=== PATIENT | male | born 1940 | race Caucasian/White ===

== ENCOUNTER 2016-08-16 10:53 | Day surgery (SDC) | payer OTHER ==
[2016-08-16] MEDS ORDERED: DIAZEPAM 5 MG TAB PO ONE (11:00)
[2016-08-16] MEDS ORDERED: ceFAZolin 2 GM/DEXTROSE 100 ML IV ONE (11:00)
[2016-08-16] MEDS ORDERED: NS 1,000 ML IV ONE (11:00)
[2016-08-16] MEDS ORDERED: BACITRACIN IRRIGATION/NS 50,000 UNITS/1,000 ML BTL IRR ONE (11:00)
[2016-08-16] MEDS ORDERED: diphenhydrAMINE 25 MG CAP PO ONE (11:00)
--- NOTE | 2016-08-16 11:13 | CPEKG ---
Heart Rate: 88 RR Interval: 682 P-R Interval: 96 QRSD Interval: 156 QT Interval: 448 QTC Interval: 542 P [place]: 145 QRS [place]: 130 T Wave [place]: 50 EKG Severity - ABNORMAL ECG - EKG Impression: VENTRICULAR-PACED COMPLEXES Electronically Signed By: Jacky Salamanca 17-Aug-2016 18:14:47
[2016-08-16] MEDS ORDERED: LIDOCAINE 1% 30 ML SDV ONE (12:33)
[2016-08-16] MEDS ORDERED: MIDAZOLAM 2 MG/2 ML VIAL ONE ×2 (12:33→13:25)
[2016-08-16] MEDS ORDERED: fentaNYL 100 MCG/2 ML INJ ONE (12:34)
--- NOTE | 2016-08-16 14:03 | EPPROC ---
Electrophysiology Procedure Note: PROCEDURE PERFORMED: 1. Explantation of an A-V Implantable Cardioverter Defibrillator 2. Implantation of an A-V Implantable Cardioverted Defibrillator INDICATION: ICD Generator at [place] Cardiomyopathy PROCEDURE NOTE: Patient presented to the cardiac catheterization laboratory in a fasting, postabsorptive state. CCL RN administered sedation. The left infraclavicular area was prepped and draped in the usual sterile fashion. Lidocaine plus bupivacaine was used for local anesthesia. Using a combination of blunt and sharp dissection and electrocautery, the dissection was carried down to the prepectoral fascia and the existing ICD pocket was opened. The ICD generator was disconnected from the leads and the lead thresholds and impedance were checked. The ICD pocket was copiously irrigated with antibiotic solution. The pocket was again inspected for any bleeding. The leads were attached to the ICD securely. The ICD was inserted into the pocket and secured in place with a nonabsorbable suture. Defibrillation testing was not performed. The ICD pocket was closed in 3 layers with absorbable monocryl sutures and jennifer. Appropriate dressing was applied. The patient left the cardiac catheterization laboratory in stable condition. Serial Numbers: 1. Implanted Device: Biotronik Itrevia 7HFT SN [id number] 2. Atrial Lead: Medtronic 4076 SN [id number] 3. Ventricular Lead: Biotronik Linox 65 SN [id number] 4. Coronary sinus Lead: Biotronik Corox 75 SN [id number] Stimulation Thresholds & Impedance Measurements: 1. Atrial Lead P 1.7 mV 0.8 V 0.4 ms 376 ohm 2. Ventricular Lead R 10.8 mV 0.7 V 0.s ms 580 ohm 3. Coronary sinus Lead R 24.1mV 0.9 V 1 ms 635 ohm Defibrillation testing: Not done Pacing Parameters: 1. Pacing mode: DDD CLS 2. Lower rate: 60 ppm 3. Upper tracking teon052 ppm 4. Upper sensor rate: 130 ppm Tachycardia therapy parameters: VF zone : Detection 188 bpm, ATP x 1 First therapy 36 Joule Subsequent therapies 40 Joule VT zone : Detection 167 bpm ATP x 3 Second therapy 36 Joule Subsequent therapies 40 Joule Patient Problems: Problems Problem Status Onset Systolic CHF, acute on chronic Acute Chest pain Acute CHRONIC DISEASE MANAGEMENTTransitional Care Acute Hypoxemia Acute Pre-syncope Acute Cardiomyopathy Acute Alcoholic intoxication Acute Troponin level elevated Acute Elevated INR Acute
== END 2016-08-16 17:11 | disposition home or self-care (01) ==
LOC: FCATH 10:53
PROVIDERS: ATTEND Internal Medicine Cardiovascular Disease
PROC: 0JPT0PZ Removal of Cardiac Rhythm Related Device from Trunk Subcutaneous Tissue and Fascia, Open Approach (ICD-10-PCS; principal; 2016-08-16)
PROC: 0JH608Z Insertion of Defibrillator Generator into Chest Subcutaneous Tissue and Fascia, Open Approach (ICD-10-PCS; principal; 2016-08-16)
DX: Z45.02 Encounter for adjustment and management of automatic implantable cardiac defibrillator (principal); I25.5 Ischemic cardiomyopathy; I48.91 Unspecified atrial fibrillation; N40.0 Benign prostatic hyperplasia without lower urinary tract symptoms; I25.10 Atherosclerotic heart disease of native coronary artery without angina pectoris; I50.30 Unspecified diastolic (congestive) heart failure; J44.9 Chronic obstructive pulmonary disease, unspecified; K21.9 Gastro-esophageal reflux disease without esophagitis; E78.5 Hyperlipidemia, unspecified; I10 Essential (primary) hypertension; G47.30 Sleep apnea, unspecified; Z87.891 Personal history of nicotine dependence; Z86.73 Personal history of transient ischemic attack (TIA), and cerebral infarction without residual deficits; Z95.1 Presence of aortocoronary bypass graft; Z79.01 Long term (current) use of anticoagulants
CPT/HCPCS: C1882; J0690; J2250; J3010

== ENCOUNTER 2016-08-17 08:07 | Observation (INO) | payer OTHER ==
--- NOTE | 2016-08-17 08:21 | CPEKG ---
Heart Rate: 124 RR Interval: 484 QRSD Interval: 162 QT Interval: 408 QTC Interval: 586 P [place]: 0 QRS [place]: 117 T Wave [place]: -34 EKG Severity - ABNORMAL ECG - EKG Impression: Paced, with LBBB pattern EKG Impression: Rhythm is variable suggesting that the underlying rhythm is possibly A Fib. EKG Impression: NONSPECIFIC INTRAVENTRICULAR CONDUCTION DELAY EKG Impression: CONSIDER LEFT VENTRICULAR HYPERTROPHY Electronically Signed By: Unruly Laughlin 17-Aug-2016 15:14:23
[2016-08-17 08:36] LABS: % IMMATURE GRANULYOCYTES 0.4 % (0.0-1.1); ABSOLUTE IMMATURE GRANULOCYTES 0.03 10^3/uL (0.00-0.10); ADD DIFF? NO; ADD MORPH? NO; ADD SCAN? NO; ATYPICAL LYMPHOCYTE FLAG 0 (0-99); FRAGMENT RBC FLAG 0 (0-99); HEMATOCRIT 39.3 % (40.0-51.0); HEMOGLOBIN 13.6 g/dL (13.7-17.5); LEFT SHIFT FLG 0 (0-99); LIPEMIA HEMOLYSIS FLAG 90 (0-99); MEAN CELL HEMOGLOBIN 32.8 pg (27.9-34.1); MEAN CELL HEMOGLOBIN CONCENTR. 34.6 g/dL (32.4-36.7); MEAN CELL VOLUME 94.7 fL (81.5-99.8); MEAN PLATELET VOLUME 9.2 fL (8.7-11.7); PLATELET CLUMPS FLAG 0 (0-99); PLATELET COUNT 221 10^3/uL (150-400); RED BLOOD CELL COUNT 4.15 10^6/uL (4.40-6.38); RED CELL DISTRIBUTION WIDTH 13.2 % (11.5-15.2)
--- NOTE | 2016-08-17 08:43 | UCPHY ---
H & P Patient Type: Established Time Seen by Provider: 08/17/16 08:19 HPI/ROS: CHIEF COMPLAINT: weakness, shortness of breath. HISTORY OF PRESENT ILLNESS: 75-year-old male had a pacemaker battery change yesterday. This strictly involves the subcutaneous process and approach without any change of the pacemaker wires. He went home and felt well. Somewhere along the line today this morning, as he was getting up, he started feeling unwell generalized fatigue a sense of shortness of breath. He is unaware of his heart beating fast. He does note that there is pain over the left anterior chest at the surgical site and has noted progressive swelling even this morning compared to last night when he went to bed and this area furthermore is worse when he does move his arm. However he does not notice any pleuritic chest pain. He has had no cough or hemoptysis. He has had no calf pain or calf swelling. He is on chronic Coumadin therapy. He was asked to hold it for 1 day, the morning of the procedure. Has not taken any yet this morning. He does have a history of CHF however when he does get into problems that he typically has peripheral edema which he notes that he does not have any at this time. He reports that he has a weakened heart, status post bypass and valvular replacement and thus on chronic Coumadin therapy. REVIEW OF SYSTEMS: Constitutional: No fever, no chills. Eyes: No discharge ENT: No sore throat. Cardiovascular: While there is pain to the left surgical site and left anterior chest overlying the pacemaker pocket he does not have any pain in the chest herself over the sternum nor any in the shoulder shoulder blades Respiratory: See above Gastrointestinal: No nausea vomiting or diarrhea. No abdominal pain. Genitourinary: No flank pain Musculoskeletal: No back pain. Skin: No rashes. Neurological: No headache. 10 point ROS otherwise negative Source: Patient, Family Exam Limitations: No limitations - Personal History Tetanus Vaccine Date: <10YRS - Medical/Surgical History Hx Asthma: No Hx Chronic Respiratory Disease: No Hx Diabetes: No Hx Cardiac Disease: Yes Hx Renal Disease: No Hx Cirrhosis: No Hx Alcoholism: Yes Hx HIV/AIDS: No Hx Splenectomy or Spleen Trauma: No Other PMH: Coronary artery disease status post bypass x2, ischemic cardiomyopathy with ejection fraction of less than 10%, status post bioprosthetic aortic valve, L knee replacement, R hip replacements, automatic implantable cardiac defibrillator/pacer, alcoholism, 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 Atrial fibrillation. Bipolar disorder. hypertension. Hyperlipidemia - Family History Significant Family History: Heart disease - Social History Smoking Status: Never smoked Alcohol Use: Occasionally Drug Use: None (Prior hx of alcohol abuse) - Physical Exam Exam: General Appearance: Alert, mod distress. Afebrile. Normal phonation. Mild respiratory distress. No diaphoresis. No pallor. Eyes: Pupils equal and round no pallor or injection. No icterus ENT, Mouth: Mucous membranes dry. Pharynx without erythema or exudate. TM Clear. Neck: No adenopathy. Supple. No JVD. Trachea in midline. Respiratory: There are no retractions, lungs are diminished bilaterally with a little bit better heard on the left versus right. No dullness. Chest: There is moderate swelling at the pacemaker pocket with heme staining of the areas adjacent to this. There is no bony tenderness however is tender to the soft tissue. No JVD Cardiovascular: Very fast. There is an irregular quality to this. On the monitor it shows paced rhythm. Abdomen: Soft and nontender, no masses, bowel sounds normal. Femoral pulses equal. Neurological: Ox3. No motor weakness. Sensation intact. Gait nl, but tentative as he feels so weak, on arrival. Skin: Warm and dry, no rashes. Musculoskeletal: No joint swelling. Extremities: No edema. Homans sign negative. Psychiatric: Normal affect. Patient is oriented X 3, there is no agitation Constitutional: Initial Vital Signs Temperature (C) 36.5 C 08/17/16 08:25 Heart Rate 123 H 08/17/16 08:25 Respiratory Rate 30 H 08/17/16 08:25 Blood Pressure 112/78 08/17/16 08:25 O2 Sat (%) 96 08/17/16 08:25 O2 Delivery Mode Nasal Cannula O2 (L/minute) 2 Allergies/Adverse Reactions: No Known Allergies Allergy (Unverified 01/11/16 15:57) Home Medications: Medication Instructions Recorded Atorvastatin Calcium [Lipitor 40 40 mg PO HS 08/31/14 mg (*)] Carvedilol [Coreg (*)] 3.125 mg PO BIDMEAL 08/31/14 Ferrous Sulfate [Ferrous Sulf 325 325 mg PO DAILY@17 08/31/14 MG (*)] Folic Acid [Folic Acid 1 MG (*)] 1 mg PO HS 08/31/14 Multivitamins [Multivitamin (*)] 1 each PO HS 08/31/14 Spironolactone [Aldactone 25 MG 25 mg PO DAILY 08/31/14 (*)] Thiamine HCl 100 mg PO HS 08/31/14 traZODone [traZODONE 50MG (*)] 50 mg PO HS 08/31/14 Finasteride [Proscar 5 MG (*)] 5 mg PO HS 10/20/15 [place]-3 Fatty Acids [Fish Oil 1000 1,000 mg PO HS 10/20/15 mg (*)] Tamsulosin HCl [Flomax 0.4 MG (*)] 0.4 mg PO HS 10/20/15 Warfarin Sodium [Coumadin 5MG (*)] 5 mg PO DAILY16 10/20/15 Lisinopril 5 mg PO HS 01/11/16 Gabapentin [Neurontin 300 MG (*)] 600 mg PO HS 08/16/16 Aspirin EC [Aspirin EC 81 mg (*)] 81 mg PO HS 08/17/16 Furosemide [Lasix 20 MG (*)] 20 mg PO DAILY 08/17/16 Omeprazole [Prilosec 20 mg] 20 mg PO HS 08/17/16 Pyridoxine HCl [Vitamin B-6 25 mg 25 mg PO HS 08/17/16 (*)] Quetiapine Fumarate [Seroquel Xr] 400 mg PO HS 08/17/16 Vitamin B Complex [B Complex] 1 each PO HS 08/17/16 Medical Decision Making - Diagnostics EKG Interpretation: EKG 1. Interpreted by me contemporaneously. EKG: Interpreted by me contemporaneously. Paced rhythm. Retrograde P's noted Heart rate [ 124 ]. QTc [520 ] STT segment: Nonspecific 2 3 and F T Waves: Flat 2 3 and F Summary: Paced rhythm with a variable rate with PVCs noted along with heart rate of 124 with a rightward axis with a QTC prolonged at 520 EKG 2. Interpreted by me contemporaneously EKG: Performed after ' spontaneous conversion' Interpreted by me contemporaneously. This is sinus rhythm paced ventricular beats with a QRS morphology compatible with a left bundle branch block Heart rate [ ED to ]. QTc [515 ] STT segment: Non interpretable in the setting of left bundle branch pattern T Waves: Normal in the inferior leads compared to prior Summary: Conversion to a sinus rhythm with a paced ventricular beat with left bundle branch block pattern associated with same. The paced ventricular tachycardia that was present earlier has now resolved. ED Course/Re-evaluation: Patient will much better after spontaneous conversion to sinus rhythm. Monitoring continued. Better range of hospitals. Evidently there are no beds available until approximately 4 hours from now. Laboratory review shows a stable hemogram with a hemoglobin of 13. Platelets adequate. INR slightly subtherapeutic at 2.2 The troponin is 0.092 which is elevated from his baseline of 0.030. Furthermore his BNP is 1500 versus 2300 this past winter. At the same token there is no signs of clinical CHF nor radiographic findings of CHF. These above numbers have been attributed to the overdrive pacing that he had just sustained After cardioversion, he was somewhat hypertensive in the 90-100 range thus was given 250 cc of saline over the course of an hour I did discuss case with Dr. Scott, cardiology, who recommended hospitalist admission with their consultation. I did speak with the on-call hospitalist who advised admission to Dr. Bustillo, telemetry bed Differential Diagnosis: Differential diagnosis includes but is not limited to the following: ACS, myocardial infarction, pneumothorax, pleurisy, pulmonary embolus, aortic dissection, anxiety, muscle strain. Calls were placed to Cardiology immediately after initial assessment. Patient remained hemodynamically borderline but did not deteriorate. Suddenly, he converted to a sinus rhythm and appeared much more relaxed and no longer had the sense of weakness. He still had a sense of pain of the left pectoral area where he had the pacemaker insertion and the consequent bleeding in the subcutaneous tissues. Ultimately eventually able to contact Cardiology who inferred that most likely had overdrive pacing of the pacemaker in the setting of atrial fibrillation. Nonetheless, the patient is better. He no longer has shortness of breath. He is casually sitting back and resting comfortably. But the shortness of breath and sense of weakness that he had upon presentation is now gone. Critical Care Time: I spent a total of 50 minutes of critical care time in obtaining history, performing a physical exam, bedside monitoring of interventions, collecting and interpreting tests and discussion with consultants but not including time spent performing procedures. - Data Points Laboratory Results: Laboratory Results 08/17/16 08:30 08/17/16 08:30 08/17/16 08/17/16 08/17/16 08:30 08:30 08:30 WBC 7.87 10^3/uL 10^3/uL (3.80-9.50) RBC 4.15 10^6/uL L 10^6/uL (4.40-6.38) Hgb 13.6 g/dL L g/dL (13.7-17.5) Hct 39.3 % L % (40.0-51.0) MCV 94.7 fL fL (81.5-99.8) MCH 32.8 pg pg (27.9-34.1) MCHC 34.6 g/dL g/dL (32.4-36.7) RDW 13.2 % % (11.5-15.2) Plt Count 221 10^3/uL 10^3/uL (150-400) MPV 9.2 fL fL (8.7-11.7) Neut % (Auto) 68.8 % % (39.3-74.2) Lymph % (Auto) 15.2 % % (15.0-45.0) Donley % (Auto) 10.4 % % (4.5-13.0) Eos % (Auto) 4.3 % % (0.6-7.6) Baso % (Auto) 0.9 % % (0.3-1.7) Nucleat RBC Rel Count 0.0 % % (0.0-0.2) Absolute Neuts (auto) 5.41 10^3/uL 10^3/uL (1.70-6.50) Absolute Lymphs (auto) 1.20 10^3/uL 10^3/uL (1.00-3.00) Absolute Monos (auto) 0.82 10^3/uL H 10^3/uL (0.30-0.80) Absolute Eos (auto) 0.34 10^3/uL 10^3/uL (0.03-0.40) Absolute Basos (auto) 0.07 10^3/uL 10^3/uL (0.02-0.10) Absolute Nucleated RBC 0.00 10^3/uL 10^3/uL (0-0.01) Immature Gran % 0.4 % % (0.0-1.1) Immature Gran # 0.03 10^3/uL 10^3/uL (0.00-0.10) PT 24.2 SEC H SEC (12.0-15.0) INR 2.20 H (0.83-1.16) Sodium 138 mEq/L mEq/L (134-144) Potassium 4.3 mEq/L mEq/L (3.5-5.2) Chloride 102 mEq/L mEq/L (97-110) Carbon Dioxide 22 mEq/l mEq/l (22-31) Anion Gap 14 mEq/L mEq/L (8-16) BUN 14 mg/dL mg/dL (7-23) Creatinine 1.0 mg/dL mg/dL (0.7-1.3) Estimated GFR > 60 Glucose 114 mg/dL H mg/dL (70-100) Calcium 9.2 mg/dL mg/dL (8.5-10.4) Magnesium 2.1 mg/dL mg/dL (1.6-2.3) Total Bilirubin 0.9 mg/dL mg/dL (0.1-1.4) Conjugated Bilirubin 0.3 mg/dL mg/dL (0.0-0.5) Unconjugated Bilirubin 0.6 mg/dL mg/dL (0.0-1.1) AST 46 IU/L IU/L (17-59) ALT 50 IU/L IU/L (21-72) Alkaline Phosphatase 80 IU/L IU/L (38-126) Troponin I 0.092 ng/mL H ng/mL (0-0.034) NT-Pro-B Natriuret Pep 5910 pg/mL H pg/mL (0-125) Total Protein 6.9 g/dL g/dL (6.3-8.2) Albumin 4.0 g/dL g/dL (3.5-5.0) Medications Given: Discontinued Medications Sodium Chloride (Ns) 250 mls @ 250 mls/hr IV ONCE ONE Stop: 08/17/16 10:44 Last Admin: 08/17/16 09:45 Dose: 250 mls Morphine Sulfate (Morphine) 4 mg IVP EDNOW ONE Stop: 08/17/16 09:03 Last Admin: 08/17/16 09:25 Dose: 4 mg Ondansetron HCl (Zofran) 4 mg IVP EDNOW ONE Stop: 08/17/16 09:02 Last Admin: 08/17/16 09:24 Dose: 4 mg Departure - Departure Disposition: [facility] Inpatient Acute Clinical Impression: Shortness of breath, Overdrive pacing, tachycardia Cardiomyopathy Qualifiers: Cardiomyopathy type: ischemic Qualified Code(s): I25.5 - Ischemic cardiomyopathy Condition: Fair - PQRS PQRS Measurement: 134: Depression screening and followup, PRIME MD-PHQ2 (12 years and older) Over the last 2 weeks, how often have you been bothered by any of the following problems? 1. Feeling down, depressed, or hopeless? 2. Little interest or pleasure in doing things? [Not done because] [critically ill]. 130: Documentation of medications. [Reviewed all patient medications, doses, route and frequency.] 226: Do you smoke? [No.] 47: 65 and older: Advanced care planning. Patient designates surrogate decision maker as [spouse] . 51: 18 years old and older with diagnosis of COPD, spirometry performance. [Patient has no history of COPD] 52: 18 years old and older with COPD and symptoms of COPD or FEV1<60% predicted prescribed a B Agonist. [Patient has no history of COPD]
[2016-08-17 09:01] LABS: ALANINE AMINOTRANSFERASE 50 IU/L (21-72); ALKALINE PHOSPHATASE 80 IU/L (38-126); ANION GAP 14 mEq/L (8-16); ASPARTATE AMINOTRANSFERASE 46 IU/L (17-59); BILIRUBIN,TOTAL 0.9 mg/dL (0.1-1.4); BILIRUBIN-CONJUGATED 0.3 mg/dL (0.0-0.5); BILIRUBIN-UNCONJUGATED 0.6 mg/dL (0.0-1.1); CALCIUM 9.2 mg/dL (8.5-10.4); CARBON DIOXIDE 22 mEq/l (22-31); CHLORIDE 102 mEq/L (97-110); GLOMERULAR FILTRATION RATE > 60; GLUCOSE 114 mg/dL (70-100); MAGNESIUM 2.1 mg/dL (1.6-2.3); POTASSIUM 4.3 mEq/L (3.5-5.2); SODIUM 138 mEq/L (134-144); TOTAL PROTEIN 6.9 g/dL (6.3-8.2)
[2016-08-17] MEDS ORDERED: ONDANSETRON 4 MG/2 ML VIAL IVP ONE (09:01)
--- NOTE | 2016-08-17 09:32 | CPEKG ---
Heart Rate: 82 RR Interval: 732 QRSD Interval: 162 QT Interval: 464 QTC Interval: 542 P [place]: 0 QRS [place]: 51 T Wave [place]: 235 EKG Severity - ABNORMAL ECG - EKG Impression: VENTRICULAR-PACED COMPLEXES EKG Impression: Improved from prior, SVT is no longer evident. EKG Impression: Sinus Rhythm EKG Impression: LEFT BUNDLE BRANCH BLOCK Electronically Signed By: Unruly Laughlin 17-Aug-2016 15:12:43
[2016-08-17 09:36] LABS: TROPONIN I 0.092 ng/mL (0-0.034)
[2016-08-17 09:45] LABS: INR 2.2 (0.83-1.16); PROTIME(PATIENT) 24.2 SEC (12.0-15.0)
[2016-08-17] MEDS ORDERED: NS 250 ML IV ONE (09:45)
[2016-08-17] MEDS ORDERED: ONDANSETRON 4 MG/2 ML VIAL IVP PRN (13:00)
[2016-08-17] MEDS ORDERED: ONDANSETRON DISINTEGRATING 4 MG TAB PO PRN (13:00)
[2016-08-17] MEDS ORDERED: ACETAMINOPHEN 325 MG TAB PO PRN (13:00)
--- NOTE | 2016-08-17 14:42 | GHP ---
[f rep st] HISTORY AND PHYSICAL DATE OF ADMISSION: 08/17/2016 CHIEF COMPLAINT: Shortness of breath, bleeding. Patient is a 75-year-old male with a history significant for CAD status post CABG and PCI, paroxysmal atrial fibrillation, and valvular heart disease, who presented to Urgent Care this morning with sudden onset of shortness of breath. Patient underwent a battery change through his defibrillator yesterday without complication. The procedure was subcutaneous without any change in the pacemaker wires. He went home and felt well. At approximately 5:45 this morning he woke up very short of breath, had tightness over the left side of his chest where the defibrillator is. Along with this he had right arm pain and cold sweats. He denied nausea, dizziness or lightheadedness, no fevers, chills or sweats. He has noted progressive swelling of the site compared to last night, and now bleeding. He denies lower extremity swelling, dyspnea or orthopnea. He has been painting a house with his son over the last couple of days without any symptoms. REVIEW OF SYSTEMS: A complete 10-point review of systems is negative, except as noted in HPI. PAST MEDICAL HISTORY: Pulmonary embolism, valvular disease status post AVR and MVR, CAD status post CABG, defibrillator placement status post battery replacement, 08/16/2016, hyperlipidemia, paroxysmal atrial fibrillation, hypertension, cardiomyopathy (EF 10% to 15%). AICD, history of alcohol abuse, history of alcohol withdrawal, history of narcotic abuse, pulmonary embolism, COPD, TIA, bipolar disorder, mild cognitive impairment. PAST SURGICAL HISTORY: Defibrillator battery replacement, 08/16/2016, initial placement 6 years ago, left TKA, right JACQUIE, CABG. FAMILY HISTORY: Mother with COPD, father with COPD and CHF. SOCIAL HISTORY: Lives alone in [place], no illicit, alcohol or tobacco. Rides a stationary bike 3 times a week without any chest pain, shortness of breath. ALLERGIES: No known drug allergies. MEDICATIONS: Home medications of paroxetine, vitamin B, trazodone 50 mg at bedtime, thiamine, spironolactone 25 mg daily, Quetiapine 400 mg at bedtime, omeprazole 20 mg daily, finasteride 5, multivitamin, lisinopril 5 mg at bedtime , gabapentin 600 mg at bedtime, Lasix 20 mg daily, tamsulosin 0.5 mg daily, folic acid, Comins-3, ferrous sulfate, Coreg 3.125 twice daily, aspirin 81, atorvastatin 40, Coumadin 5 daily. PHYSICAL EXAM: VITAL SIGNS: Temperature is 36.6, blood pressure 117/64, heart rate 60s to 80s, respirations 18, 99% on 2 L. GENERAL: A thin male, in no acute distress. HEENT: PERRLA, EOMI, oropharynx clear. CV: Regular, with an occasional extra beat. No lower extremity edema or JVD. Pacemaker site sutured , gauze soaked with blood. No surrounding erythema. LUNGS: Clear to auscultation bilaterally. No crackles or wheezing. ABDOMEN: Soft, nontender, nondistended. Positive bowel sounds. : No Pena, no suprapubic tenderness. MUSCULOSKELETAL: 5/5 upper lower extremity strength. NEURO: 2 through 12 intact. PSYCHIATRIC: Alert and oriented x3. LABORATORY DATA: WBC is 7.87, hemoglobin 13.6, hematocrit 39, INR is 2, PT is 24.2. Sodium 138, potassium 4.3, chloride 102, carbon dioxide 22, BUN 14, creatinine 1, glucose 114, calcium 9.2, mag 2.1. LFTs within normal. Troponin is 0.092, BNP 5910. Chest x-ray is personally reviewed by me. No evidence of infection or fluid. Pacemaker in place, sternotomy wires. EKG, V-paced. ASSESSMENT AND PLAN: 1. Atrial flutter: per urgent care visit notes, he was tachycardic in atrial flutter with HRs 120s and converted out of it. May warrant ablation. 2. Hematoma over defibrillator site: okay per cards to cont ASA, Coumadin and Plavix,. 3. Mildy deompensated ischemic cardiomyopathy: per Cardiology, does not have to have significant volume overload for symptoms. They will gently diurese. 4. Coronary artery disease: cath 03/13 showed patent SVG to RVA and DANGELO to LAD.Continue Coreg, statin, Plavix, ASA 5. History of pulmonary embolism: can resume Coumadin. 6. Hyperlipidemia: statin. 7. Benign hypertension, continue home medications. 8. Chronic obstructive pulmonary disease, no evidence of exacerbation. 9. Indeterminate trop: likely due to flutter, volume overload. Trend. 10. Bipolar disorder, continue home medications. 11. Diet, regular. 12. DVT prophylaxis: on Coumadin DISPOSITION: Patient warrants observation and admission given concern for arrhythmia requiring telemetry and evaluation of his defibrillator site by Cardiology. /[id number]/MODL [id number]
[2016-08-17] MEDS ORDERED: FUROSEMIDE 20 MG/2 ML VIAL IVP ONE (15:46)
[2016-08-17] MEDS ORDERED: WARFARIN SODIUM 5 MG TAB PO SCH (16:00)
--- NOTE | 2016-08-17 16:51 | GCON ---
[f rep st] CONSULTATION CARDIOLOGY CONSULTATION DATE OF CONSULTATION: 08/17/2016 We were asked by Dr. Nova Bustillo of [facility] to evaluate this patient for his chest pain , shortness of breath, and atrial arrhythmia that brought him in for this admission. HISTORY OF PRESENT ILLNESS: The patient is a 75-year-old male well known to us from previous years of hospital and clinic visits. He has a known history of CAD with multiple percutaneous interventio ns and CABG twice; bio AVR and MVR; 2 prior strokes; currently on Coumadin; history of paroxysmal at rial fib and flutter; previous alcohol abuse, currently abstinent; ischemic cardiomyopathy with NYHA functional class 2 symptoms in regard to his CHF. His last measured ejection fraction is 10% to 15 %. He was here yesterday for an outpatient procedure. He had a generator changed to his BiV ICD. He was discharged to home. This morning he awoke at 5:45 a.m. with a tightness in his chest, right forearm discomfort, and shortness of breath. He felt diaphoretic. He went to the urgent care and w as found to be in an atrial arrhythmia that is later confirmed to be atrial flutter at a rate of 124 . This spontaneously converted within a few minutes. He reports symptoms resolved after being admi nistered oxygen as well as morphine. Overall, in the past several months, he denies any chest tight ness, dyspnea, PND, orthopnea. 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 PAST MEDICAL HISTORY: 1. Alcoholism. 2. Anxiety. 3. Paroxysmal atrial fib and flutter. 4. Ischemic cardiomyopathy with an ejection fraction of 10% to 15% status post BiV ICD with recent gen change. 5. History of NSTEMI and most recent cardiac catheterization in February of 2016 which found 2 vesse l disease with patent SVG to RCA and DANGELO to LAD. 6. Valvular heart disease with prior bio AVR and MVR. 7. History of CVA. 8. History of depression. 9. Hypertension. 10. Dyslipidemia. Recent rotator cuff repair. 11. Cataract surgery. 12. Right hip replacement 2006. 13. Left knee replacement 2009. 14. Tonsillectomy. OUTPATIENT MEDICATIONS: 1. Vitamin B6. 2. Vitamin B complex. 3. Trazodone. 4. Thiamine. 5. Spironolactone. 6. Seroquel. 7. Omeprazole. 8. Finasteride. 9. Multivitamin. 10. Lisinopril. 11. Neurontin. 12. Furosemide. 13. Tamsulosin. 14. Folic acid. 15. Fish oil. 16. Ferrous sulfate. 17. Carvedilol. 18. Atorvastatin. 19. Warfarin. ALLERGIES: No known drug allergies. SOCIAL HISTORY: Patient is . He has 10 grown children. 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 He was a former tobacco user. FAMILY HISTORY: Significant for rheumatic heart disease and Hodgkin lymphoma. REVIEW OF SYSTEMS: As per HPI. A complete 10-point review of systems was obtained and is negative except for what is dictated in HPI. PHYSICAL EXAMINATION: VITAL SIGNS: BP of 103/64, heart rate 86, respirations 18, O2 saturation 91% on room air, temp of 97.9 degrees Fahrenheit. GENERAL: Pleasant male in no apparent distress. EY ES: CHENG. EARS: Show cauliflower ear deformity bilaterally. NECK: Supple with no JVD. HEART: Distant heart sounds with no discernible rubs, gallops, or murmurs. LUNGS: Clear to auscultation. ABDOMEN: Soft, nontender, nondistended. SKIN: Warm and dry. NEURO: No focal deficits. PSYCH: Normal mood and affect for given situation. CBC with WBC 7.87, hemoglobin 13.6, hematocrit 39.3, platelet count of 221. BMP was sodium 138, pot assium 4.3, chloride 102, CO2 of 22, BUN 14, creatinine 1, glucose 114. Troponin 0.092, then 0.468. NT proBNP 5910. 12 lead ECG from 08/17/2016 at 8:14 shows atrial flutter with a V paced rhythm, occasional PVC noted . 08/17/2016 EKG at 8:19 am shows A sensed V paced rhythm with frequent PVCs. IMPRESSION AND PLAN: The patient is a 75-year-old male admitted with an atrial flutter. This spont aneously converted in Urgent Care. 1. Paroxysmal atrial flutter. He will be seen by Dr. Paniagua in the outpatient setting for this. He h as an appointment set up for him for next week. We will resume his Coumadin as he has not had a sig nificant drop in his hematocrit. He does have mild ecchymosis over his pacer site. His hemoglobin, hematocrit are stable from yesterday. 2. Ischemic cardiomyopathy with acute on chronic systolic congestive heart failure. His NT proBNP is higher than his typical baseline of 1999 or so. We will give him a 1 time dose of IV Lasix given that he likely into some heart failure with his atrial flutter with rapid ventricular response. Al l of his other home medications will be continued. 3. Coronary artery disease. He has mildly elevated troponin again likely related to the atrial flu tter. We will plan to trend his enzymes given his reports of this chest pain with the atrial flutte r this morning. 4. Dyslipidemia. His home statin will be continued. 5. Hypertension. Blood pressure appears well controlled. 6. Valvular heart disease. He has known AVR and MVR. He will have outpatient echo for routine silvia veillance as previously scheduled. /[id number]/MODL
[2016-08-17] MEDS ORDERED: FERROUS SULFATE 325 MG TAB PO SCH (17:00)
[2016-08-17] MEDS: CARVEDILOL 3.125 MG TAB PO SCH (18:29)
[2016-08-17] MEDS: oxyCODONE IR 5 MG TAB PO PRN ×2 (18:30→22:52)
[2016-08-17] MEDS ORDERED: traZODone 50 MG TAB PO SCH (21:00)
[2016-08-17] MEDS ORDERED: PANTOPRAZOLE SODIUM 40 MG TAB PO SCH (21:00)
[2016-08-17] MEDS ORDERED: FINASTERIDE 5 MG TAB PO SCH (21:00)
[2016-08-17] MEDS ORDERED: QUEtiapine FUMARATE 200 MG TAB PO SCH (21:00)
[2016-08-17] MEDS ORDERED: THIAMINE HCL 100 MG TAB PO SCH (21:00)
[2016-08-17] MEDS ORDERED: MULTIVITAMINS 1 EACH TAB PO SCH (21:00)
[2016-08-17] MEDS ORDERED: LISINOPRIL 5 MG TAB PO SCH (21:00)
[2016-08-17] MEDS ORDERED: PYRIDOXINE HCL 25 MG TAB PO SCH (21:00)
[2016-08-17] MEDS ORDERED: FOLIC ACID 1 MG TAB PO SCH (21:00)
[2016-08-17] MEDS ORDERED: OMEGA-3 FATTY ACIDS 1,000 MG CAP PO SCH (21:00)
[2016-08-17] MEDS ORDERED: TAMSULOSIN HCL 0.4 MG CAP PO SCH (21:00)
[2016-08-17] MEDS ORDERED: VITAMIN B COMPLEX 1 EA CAP/TAB PO SCH (21:00)
[2016-08-17] MEDS ORDERED: GABAPENTIN 300 MG CAP PO SCH (21:00)
[2016-08-17] MEDS ORDERED: QUETIAPINE FUMARATE 400 MG PO SCH (21:00)
[2016-08-17] MEDS ORDERED: ATORVASTATIN CALCIUM 40 MG TAB PO SCH (21:00)
[2016-08-18 04:54] LABS: RED CELL DISTRIBUTION WIDTH 13.2 % (11.5-15.2)
[2016-08-18 05:03] LABS: HEMATOCRIT 32.6 % (40.0-51.0); HEMOGLOBIN 11.2 g/dL (13.7-17.5); MEAN CELL HEMOGLOBIN 33.3 pg (27.9-34.1); MEAN CELL HEMOGLOBIN CONCENTR. 34.4 g/dL (32.4-36.7); RED BLOOD CELL COUNT 3.36 10^6/uL (4.40-6.38)
[2016-08-18 05:07] LABS: INR 2.81 (0.83-1.16); PROTIME(PATIENT) 29.9 SEC (12.0-15.0)
[2016-08-18] MEDS: oxyCODONE IR 5 MG TAB PO PRN ×2 (07:46→12:34)
[2016-08-18] MEDS: CARVEDILOL 3.125 MG TAB PO SCH (07:47)
[2016-08-18] MEDS ORDERED: CLOPIDOGREL BISULFATE 75 MG TAB PO SCH (09:00)
[2016-08-18] MEDS ORDERED: SPIRONOLACTONE 25 MG TAB PO SCH (09:00)
--- NOTE | 2016-08-18 10:35 | PDCARPN ---
Cardiology Progress Note Chief Complaint: CHF/Afl Assessment/Plan: Assessment: 75M PMH CAD/multiple PCIs/CABG, sCHF with EF 15%, bioprosthetic AVR/MVR, PAF/fl , previous strokes on Coumadin ICM with bi-V ICD. Recent gen change for LINDSEY. Presented to with shortness of breath and chest tightness. Found to be in Afl with RVR 120. Spontaneously converted in ED. #. Afl: will be seen in Dr. Paniagua's office to discuss AVN ablation next week continue Coumadin #. CAD: elevated troponin in this admission likely from AFl RVR no current symptoms suggestive of angina #. sCHF with very low EF: NYHA FC II recent gen change with question of hematoma ICD site looks mildly edematous/ advised pt on ice and Tylenol drop in H/H likely c/w recent procedure benefits outweigh risks to keep pt on home Coumadin and Plavix Plan: OK to d/c from cardiac perspective 08/18/16 10:28 Subjective: No cp/dyspnea. Mild incisional pain. Reviewed/Discussed With: hospitalist Objective: Vital Signs (8 Hrs) Temp Pulse Resp BP Pulse Ox 08/18/16 08:27 97.9 F 79 18 96/66 L 94 08/18/16 07:47 96/66 L 08/18/16 04:00 97.7 F 65 16 76/34 L 91 L Intake/Output (24 Hrs) 08/17/16 08/18/16 08/19/16 05:59 05:59 05:59 Intake Total 1030 600 Output Total 1100 Balance -70 600 Intake: Oral (ml) 780 600 IV Infused (ml) 250 Output: Urine (ml) 1100 Urinal 400 Other: Weight 62.5 kg Intake Quantity Yes Sufficient Result Diagrams: 08/18/16 03:57 08/17/16 08:30 Cardiac Labs: Cardiac Lab Results (72 Hrs) 08/17/16 08/17/16 20:20 14:05 Troponin I 0.426 H 0.468 H - Physical Exam Constitutional: no apparent distress Eyes: PERRL Ears, Nose, Mouth, Throat: moist mucous membranes Cardiovascular: regular rate and rhythm Respiratory: clear to auscultate bilat, no crackles Skin: other (ICD site with mild edema at lateral border/mild ecchymosis) ICD10 Worksheet Patient Problems: Problems Problem Status Onset Cardiomyopathy Acute Shortness of breath Acute Alcoholic intoxication Acute CHRONIC DISEASE MANAGEMENTTransitional Care Acute Chest pain Acute Elevated INR Acute Hypoxemia Acute Pre-syncope Acute Systolic CHF, acute on chronic Acute Troponin level elevated Acute
--- NOTE | 2016-08-18 10:51 | HOSPPROG ---
Hospitalist Progress Note Subjective: No CP or SOB Objective: Vital Signs Temp Pulse Resp BP Pulse Ox 36.6 C 79 18 96/66 L 94 08/18/16 08:27 08/18/16 08:27 08/18/16 08:27 08/18/16 08:27 08/18/16 08:27 Laboratory Results 08/18/16 03:57 08/17/16 08/18/16 08/19/16 05:59 05:59 05:59 Intake Total 1030 600 Output Total 1100 Balance -70 600 PT 29.9 SEC (12.0-15.0) H 08/18/16 03:57 INR 2.81 (0.83-1.16) H 08/18/16 03:57 - Physical Exam Constitutional: no apparent distress Eyes: PERRL Ears, Nose, Mouth, Throat: moist mucous membranes Cardiovascular: regular rate and rhythym, edema (no LE edema), other (ICD site with swelling, TTP) Respiratory: no respiratory distress Gastrointestinal: normoactive bowel sounds Genitourinary: no bladder fullness Skin: warm Musculoskeletal: full muscle strength Neurologic: AAOx3 ICD10 Worksheet Patient Problems: Problems Problem Status Onset Cardiomyopathy Acute Shortness of breath Acute Alcoholic intoxication Acute CHRONIC DISEASE MANAGEMENTTransitional Care Acute Chest pain Acute Elevated INR Acute Hypoxemia Acute Pre-syncope Acute Systolic CHF, acute on chronic Acute Troponin level elevated Acute
--- NOTE | 2016-08-18 11:09 | GDS ---
[f rep st] DISCHARGE SUMMARY DISCHARGE DIAGNOSES: 1. Atrial flutter. 2. Hematoma at the pacer site. 3. Mildly decompensated ischemic cardiomyopathy. 4. Coronary artery disease. 5. History of pulmonary embolism. 6. Hyperlipidemia. 7. Benign hypertension. 8. Chronic bursitis. 9. Chronic obstructive pulmonary disease. 10. Indeterminate troponin. 11. Bipolar disorder. HISTORY OF PRESENT ILLNESS: Patient is a 75-year-old male with history significant for CAD status p ost CABG and PCI, paroxysmal atrial fibrillation and valvular heart disease. He presented to urgent care with sudden onset of shortness of breath. He underwent battery change of defibrillator a day prior without complication. He went home and felt well and then approximately 5:45 the morning the day of admission, he felt very short of breath. He had tightness of the left side of his chest. He denies fevers, chills or sweats. He had noticed progressive swelling of the site compared to the n ight prior with some bleeding. HOSPITAL COURSE BY PROBLEM: 1. Atrial flutter: While in urgent care EKG revealed atrial flutter with heart rate 120s. He conv erted back on his own. He is to follow up with Dr. Paniagua for possible ablation. 2. Hematoma. Stable. Mildly edematous today. Recommend ice and Tylenol. 3. Mildly decompensated systolic heart failure. MIH-2. Had mild shortness of breath likely second rico to procedure. Was gently diuresed with 1 dose of Lasix and feeling much better. He is to resum e home medications. 4. Coronary artery disease. Continue statin, Plavix, aspirin, beta-mayito. Benefits of Coumadin and Plavix outweigh the risk of the hematoma. DISPOSITION: Patient for discharge. FOLLOWUP: 1. Dr. Paniagua. 2. Dr. Scott. 3. Patient was advised to return to the hospital if shortness of breath, increased swelling, pain o r bleeding from the incision site. /[id number]/MODL
[2016-08-18 11:45] VITALS: BP 85/57; PULSE 75; RESP 19; TEMP 98.1; O2SAT 93
== END 2016-08-18 13:14 | disposition home or self-care (01) ==
LOC: CED 08:07 → CEDHOLD 09:51 → F2W 12:19
PROVIDERS: ADMIT Internal Medicine; ATTEND Internal Medicine
DX: I48.92 Unspecified atrial flutter (principal); I97.638 Postprocedural hematoma of a circulatory system organ or structure following other circulatory system procedure; I25.5 Ischemic cardiomyopathy; I25.10 Atherosclerotic heart disease of native coronary artery without angina pectoris; I50.20 Unspecified systolic (congestive) heart failure; R79.9 Abnormal finding of blood chemistry, unspecified; E78.5 Hyperlipidemia, unspecified; I10 Essential (primary) hypertension; I69.310 Attention and concentration deficit following cerebral infarction; J44.9 Chronic obstructive pulmonary disease, unspecified; I69.311 Memory deficit following cerebral infarction; Z79.01 Long term (current) use of anticoagulants; Z86.711 Personal history of pulmonary embolism; Z95.2 Presence of prosthetic heart valve; Z95.810 Presence of automatic (implantable) cardiac defibrillator; Z95.1 Presence of aortocoronary bypass graft; Z95.5 Presence of coronary angioplasty implant and graft; Z96.641 Presence of right artificial hip joint; Z96.652 Presence of left artificial knee joint; Z82.49 Family history of ischemic heart disease and other diseases of the circulatory system; F31.9 Bipolar disorder, unspecified
CPT/HCPCS: 71010; 93005; 96361; 96374; 96375; G0378; G0463; J2405; 80048-PO; 80076-PO; 83735-PO; 83880-PO; 84484-PO; 85025-PO; 85610-PO

== ENCOUNTER 2016-09-10 12:37 | Inpatient (IN) | payer OTHER ==
--- NOTE | 2016-09-10 12:52 | CPEKG ---
Heart Rate: 78 RR Interval: 769 P-R Interval: 148 QRSD Interval: 156 QT Interval: 432 QTC Interval: 493 P Nassau: 0 QRS Nassau: 0 T Wave Nassau: -29 EKG Severity - ABNORMAL ECG - EKG Impression: ATRIAL-VENTRICULAR DUAL-PACED COMPLEXES Electronically Signed By: Oskar Pleitez 10-Sep-2016 13:17:35
--- NOTE | 2016-09-10 13:01 | EDPHY ---
General - History Smoking Status: Never smoked Narrative: CHIEF COMPLAINT: Chest Pain HISTORY OF PRESENT ILLNESS: Patient complains of chest pressure that started early this morning. This was while doing laundry. It is a generalized chest pressure. Associated with some nausea, dizziness and difficulty getting his breath. No fever or chills. No cough or recent illness. No radiating pain. No neck pain. No abdominal discomfort. Patient has a history of atrial fibrillation and is on a combination intracardiac device. The battery was changed approximately 3 weeks ago. No recent trauma or surgery. No history of venous thrombolic event. Patient does take Coumadin and Plavix. Patient sees Dr. Scott for Cardiology and he scheduled to see Dr. Paniagua on the for an ablation. No other associated complaints or modifying factors. PRIOR CARDIAC WORKUP: Remote REVIEW OF SYSTEMS: Ten systems reviewed and are negative unless otherwise noted in the HPI EXAMINATION: General Appearance: Alert, no distress, appears dyspneic Head: normocephalic, atraumatic Eyes: Pupils equal and round, no conjunctival pallor or injection ENT, Mouth: Mucous membranes moist. Uvula midline. No erythema edema. Neck: Normal inspection, supple, non-tender Respiratory: Mild rhonchi. No consolidation, crackles or diminishment. No distress. Cardiovascular: Regular rate with irregularly irregular rhythm. Pulses intact distally symmetrically. Gastrointestinal: Abdomen is soft and nontender Back: non-tender, no bony abnormalities Neurological: A&O, nonfocal, normal gait Skin: Warm and dry, no rash Extremities: Nontender, no pedal edema Psychiatric: Mood and affect normal DIFFERENTIAL DIAGNOSES: Including but not limited to in no particular order: Acute Chest Pain, ACS, Stable Angina, Pneumonia, PE, duodenitis, gastritis, esophagitis, GERD MDM: 12:55 p.m. Chest pressure that started this morning. Associated with some nausea and dizziness, as well as her shortness of breath. Patient has a history of atrial fibrillation and scheduled for ablation on the . He denies previous CT but he is status post CABG x2. Also has congestive heart failure and/or ischemic cardiomyopathy. He is on Plavix and Coumadin. Vital signs are stable but he does appear uncomfortable on examination. 2:15 p.m. Chest pain possible pneumonia on chest x-ray. Troponin is actually improved from recent admission. BNP is at baseline for patient. Patient does have shortness of breath, thus we will treat presumptively for pneumonia. I have ordered blood cultures will treat for healthcare associated pneumonia. He remains hemodynamically stable in atrial fibrillation with hypotension. I discussed the case with Dr. Mon, and she will admit patient for further care. EKG: Interpreted by Dr. Pleitez SUPERVISION: Patient was evaluated in conjunction with the supervising physician. Please see their note for details. (José Brooks) Medical Decision Making: PHYSICIAN DOCUMENTATION: The patient was evaluated and managed by the Physician [employer] and myself. I have reviewed the chart and agree with the findings and plan of care, except as documented below. In addition, I examined the patient myself at 1344. History confirmed as cough and a little bit of chest tightness and shortness of breath. Physical findings as follows: Speaks in full sentences, currently on oxygen does not have rhonchi or rales on my examination at this time. 1416: Labs reviewed and the patient has a chronically elevated BNP although it was noted to be elevated today as well. Chest x-ray personally reviewed by myself shows right-sided infiltrate upper greater than lower. [place] [id number] which is new compared to his previous values. The elevated white blood cell count combined with the radiology reading of his x -ray and presence of a slight cough makes pneumonia more likely than CHF acutely at this time. However it is possible he has both. Plan for lactate, blood cultures x2, broad-spectrum antibiotics to include levothyroxine and cefepime because of inpatient hospitalization within the past 90 days. Possible HCAP. I think pulmonary embolism would be unlikely with the therapeutic INR. 1535: Lactate noted at 2.8, however the patient on admission does not have SIRS criteria. Specifically heart rate less than 90, respiratory rate less than 20, afebrile. Admit for chest pressure with history of coronary disease, cycle troponins. Possible pulmonary infection. 12-lead EKG interpreted by me; official reading is in trace master. My interpretation is AV dual pacemaker at 78. I am the secondary supervising physician. (Oskar Pleitez) - Diagnostics Imaging Results: Imaging Impressions Chest X-Ray 09/10/16 12:57 Impression: New focal consolidation right upper lobe, pneumonia versus asymmetric pulmonary edema. Similar but less prominent findings, right lower lobe. - Objective Vital Signs: Initial Vital Signs Temperature (C) 36.7 C 09/10/16 12:41 Heart Rate 85 09/10/16 12:41 Respiratory Rate 18 09/10/16 12:41 Blood Pressure 144/92 H 09/10/16 12:41 O2 Sat (%) 96 09/10/16 12:41 Allergies/Adverse Reactions: No Known Allergies Allergy (Verified 09/10/16 12:40) Home Medications: Medication Instructions Recorded Atorvastatin Calcium [Lipitor 40 40 mg PO HS 08/31/14 mg (*)] Carvedilol [Coreg (*)] 3.125 mg PO BIDMEAL 08/31/14 Ferrous Sulfate [Ferrous Sulf 325 325 mg PO DAILY@17 08/31/14 MG (*)] Folic Acid [Folic Acid 1 MG (*)] 1 mg PO HS 08/31/14 Multivitamins [Multivitamin (*)] 1 each PO HS 08/31/14 Spironolactone [Aldactone 25 MG 25 mg PO DAILY 08/31/14 (*)] Thiamine HCl 100 mg PO HS 08/31/14 traZODone [traZODONE 50MG (*)] 50 mg PO HS 08/31/14 Finasteride [Proscar 5 MG (*)] 5 mg PO HS 10/20/15 [place]enne-3 Fatty Acids [Fish Oil 1000 1,000 mg PO HS 10/20/15 mg (*)] Tamsulosin HCl [Flomax 0.4 MG (*)] 0.4 mg PO HS 10/20/15 Warfarin Sodium [Coumadin 5MG (*)] 5 mg PO SUMOTUWEFRSA@16 10/20/15 Lisinopril 5 mg PO HS 01/11/16 Gabapentin [Neurontin 300 MG (*)] 600 mg PO HS 08/16/16 Aspirin EC [Aspirin EC 81 mg (*)] 81 mg PO HS 08/17/16 Furosemide [Lasix 20 MG (*)] 20 mg PO DAILY 08/17/16 Omeprazole [Prilosec 20 mg] 20 mg PO HS 08/17/16 Pyridoxine HCl [Vitamin B-6 25 mg 25 mg PO HS 08/17/16 (*)] Quetiapine Fumarate [Seroquel Xr] 400 mg PO HS 08/17/16 Vitamin B Complex [B Complex] 1 each PO HS 08/17/16 Clopidogrel Bisulfate [Plavix (*)] 75 mg PO DAILY #0 tab 08/18/16 Mirtazapine [Remeron] 45 mg PO HS 09/10/16 Warfarin Sodium [Coumadin 5MG (*)] 7.5 mg PO TH@16 09/10/16 Laboratory Results: Laboratory Results 09/10/16 13:28 09/10/16 13:28 09/10/16 09/10/16 09/10/16 13:28 13:28 13:28 WBC 13.01 10^3/uL H 10^3/uL (3.80-9.50) RBC 4.42 10^6/uL 10^6/uL (4.40-6.38) Hgb 14.7 g/dL g/dL (13.7-17.5) Hct 42.7 % % (40.0-51.0) MCV 96.6 fL fL (81.5-99.8) MCH 33.3 pg pg (27.9-34.1) MCHC 34.4 g/dL g/dL (32.4-36.7) RDW 13.2 % % (11.5-15.2) Plt Count 211 10^3/uL 10^3/uL (150-400) MPV 9.5 fL fL (8.7-11.7) Neut % (Auto) 74.8 % H % (39.3-74.2) Lymph % (Auto) 15.8 % % (15.0-45.0) Sharp % (Auto) 6.8 % % (4.5-13.0) Eos % (Auto) 1.6 % % (0.6-7.6) Baso % (Auto) 0.5 % % (0.3-1.7) Nucleat RBC Rel Count 0.0 % % (0.0-0.2) Absolute Neuts (auto) 9.73 10^3/uL H 10^3/uL (1.70-6.50) Absolute Lymphs (auto) 2.06 10^3/uL 10^3/uL (1.00-3.00) Absolute Monos (auto) 0.88 10^3/uL H 10^3/uL (0.30-0.80) Absolute Eos (auto) 0.21 10^3/uL 10^3/uL (0.03-0.40) Absolute Basos (auto) 0.06 10^3/uL 10^3/uL (0.02-0.10) Absolute Nucleated RBC 0.00 10^3/uL 10^3/uL (0-0.01) Immature Gran % 0.5 % % (0.0-1.1) Immature Gran # 0.07 10^3/uL 10^3/uL (0.00-0.10) PT 23.6 SEC H SEC (12.0-15.0) INR 2.09 H (0.83-1.16) APTT 37.3 SEC SEC (23.0-38.0) Sodium 139 mEq/L mEq/L (134-144) Potassium 4.7 mEq/L mEq/L (3.5-5.2) Chloride 98 mEq/L mEq/L (97-110) Carbon Dioxide 25 mEq/l mEq/l (22-31) Anion Gap 16 mEq/L mEq/L (8-16) BUN 18 mg/dL mg/dL (7-23) Creatinine 1.0 mg/dL mg/dL (0.7-1.3) Estimated GFR > 60 Glucose 94 mg/dL mg/dL (70-100) Calcium 10.0 mg/dL mg/dL (8.5-10.4) Total Bilirubin 1.7 mg/dL H mg/dL (0.1-1.4) Conjugated Bilirubin 0.5 mg/dL mg/dL (0.0-0.5) Unconjugated Bilirubin 1.2 mg/dL H mg/dL (0.0-1.1) AST 38 IU/L IU/L (17-59) ALT 43 IU/L IU/L (21-72) Alkaline Phosphatase 93 IU/L IU/L (38-126) Troponin I 0.060 ng/mL H ng/mL (0-0.034) NT-Pro-B Natriuret Pep 5860 pg/mL H pg/mL (0-125) Total Protein 8.4 g/dL H g/dL (6.3-8.2) Albumin 5.1 g/dL H g/dL (3.5-5.0) Lipase 110.0 IU/L IU/L (23-300) Medications Given: Discontinued Medications Furosemide (Lasix Injection) 40 mg IVP ONCE ONE Stop: 09/10/16 15:42 Last Admin: 09/10/16 15:51 Dose: 40 mg Cefepime HCl 2 gm/ Dextrose 100 mls @ 200 mls/hr IV EDNOW ONE PRN Reason: Protocol Stop: 09/10/16 14:41 Last Admin: 09/10/16 15:08 Dose: 100 mls Levofloxacin/Dextrose (Levaquin 750 Mg (Premix)) 150 mls @ 100 mls/hr IV EDNOW ONE PRN Reason: Protocol Stop: 09/10/16 15:41 Last Admin: 09/10/16 15:35 Dose: 150 mls Departure - Departure Disposition: [facility] Inpatient Acute Clinical Impression: Acute chest pain Pneumonia Qualifiers: Pneumonia type: due to unspecified organism Laterality: right Lung location: upper lobe of lung Qualified Code(s): J18.1 - Lobar pneumonia, unspecified organism Condition: Good
[2016-09-10 13:38] LABS: % IMMATURE GRANULYOCYTES 0.5 % (0.0-1.1); ABSOLUTE IMMATURE GRANULOCYTES 0.07 10^3/uL (0.00-0.10); ADD DIFF? NO; ADD MORPH? NO; ADD SCAN? NO; ATYPICAL LYMPHOCYTE FLAG 0 (0-99); FRAGMENT RBC FLAG 0 (0-99); HEMATOCRIT 42.7 % (40.0-51.0); HEMOGLOBIN 14.7 g/dL (13.7-17.5); LEFT SHIFT FLG 0 (0-99); LIPEMIA HEMOLYSIS FLAG 90 (0-99); MEAN CELL HEMOGLOBIN 33.3 pg (27.9-34.1); MEAN CELL HEMOGLOBIN CONCENTR. 34.4 g/dL (32.4-36.7); MEAN CELL VOLUME 96.6 fL (81.5-99.8); MEAN PLATELET VOLUME 9.5 fL (8.7-11.7); PLATELET CLUMPS FLAG 0 (0-99); PLATELET COUNT 211 10^3/uL (150-400); RED BLOOD CELL COUNT 4.42 10^6/uL (4.40-6.38); RED CELL DISTRIBUTION WIDTH 13.2 % (11.5-15.2)
[2016-09-10 13:51] LABS: INR 2.09 (0.83-1.16); PROTIME(PATIENT) 23.6 SEC (12.0-15.0)
[2016-09-10 13:52] LABS: APTT 37.3 SEC (23.0-38.0)
[2016-09-10 13:54] LABS: ALANINE AMINOTRANSFERASE 43 IU/L (21-72); ALBUMIN 5.1 g/dL (3.5-5.0); ALKALINE PHOSPHATASE 93 IU/L (38-126); ANION GAP 16 mEq/L (8-16); ASPARTATE AMINOTRANSFERASE 38 IU/L (17-59); BILIRUBIN,TOTAL 1.7 mg/dL (0.1-1.4); BILIRUBIN-CONJUGATED 0.5 mg/dL (0.0-0.5); BILIRUBIN-UNCONJUGATED 1.2 mg/dL (0.0-1.1); CARBON DIOXIDE 25 mEq/l (22-31); CHLORIDE 98 mEq/L (97-110); GLOMERULAR FILTRATION RATE > 60; GLUCOSE 94 mg/dL (70-100); POTASSIUM 4.7 mEq/L (3.5-5.2); SODIUM 139 mEq/L (134-144); TOTAL PROTEIN 8.4 g/dL (6.3-8.2)
[2016-09-10] MEDS ORDERED: CEFEPIME HCL 2 GM in D5W 100 ML IV ONE (14:12)
[2016-09-10] MEDS ORDERED: FUROSEMIDE 40 MG/4 ML VIAL IVP ONE (15:41)
[2016-09-10] MEDS ORDERED: ONDANSETRON 4 MG/2 ML VIAL IVP PRN (15:54)
[2016-09-10] MEDS ORDERED: ACETAMINOPHEN 325 MG TAB PO PRN (15:54)
[2016-09-10 16:09] LABS: LACGHOST ORDER
--- NOTE | 2016-09-10 16:46 | GHP ---
[f rep st] HISTORY AND PHYSICAL DATE OF ADMISSION: 09/10/2016 CHIEF COMPLAINT: Chest tightness and dizziness. HISTORY: The patient is a 75-year-old male with an extensive cardiac history, including ejection fraction of 15% with biventricular ICD, coronary artery disease status post CABG x2 and extensive stenting, atrial flutter with ablation pending, and bioprosthetic aortic and mitral valve replacements. He presents with an episode of chest pain. He woke up at 7 a.m., felt fine, did some laundry, and at about 8 a.m. he developed a central chest tightness, very similar to his previous episodes of angina. He got extraordinarily dizzy, and he has never been dizzy like this ever before. He felt cold, had chills, and was very short of breath. The symptoms all resolved after arrival to the emergency room with administration of oxygen he has a chronic cough with chronic phlegm that is recently unchanged. He has noticed increased edema in his legs for the last week, as well as worsening PND and orthopnea. He was recently hospitalized overnight from August 17 to the , when he went into AFib shortly after his pacemaker battery was changed. He spontaneously converted overnight and was discharged next morning. He has an AV ablation scheduled with Dr. Paniagua on September 19. PAST MEDICAL HISTORY: 1. Coronary disease, status post CABG x2, and multiple previous stents, including a stent to the left main at [facility] within the last year. His last cardiac catheterization was here in February 2016, and no intervention was performed. 2. Systolic congestive heart failure, ischemic; ejection fraction 15% with biventricular ICD. 3. Atrial flutter. 4. Bioprosthetic aortic and mitral valve replacements. 5. Embolic stroke x2. 6. COPD. 7. Bipolar. PAST SURGICAL HISTORY: Total knee and total hip arthroplasty. MEDICATIONS: Please see computer record for full detailed list. ALLERGIES: No known drug allergies. SOCIAL HISTORY: No smoking. No alcohol. He lives alone. He desires DNR. His daughter is his decision-maker if he would be unable. He was a previous alcoholic but quit many years ago. REVIEW OF SYSTEMS: Complete review of systems obtained. Review of systems is negative regarding constitutional, HEENT, GI, pulmonary, cardiovascular, , hematology, musculoskeletal, endocrine, psych, except for positives and negatives as in HPI. FAMILY HISTORY: Positive for COPD. PHYSICAL EXAMINATION: GENERAL: Well-developed, well-nourished male in no acute distress. VITAL SIGNS: Temperature is 36.7, pulse 85, blood pressure 144 /92, satting 96% on room air. EYES: Normal conjunctivae. Pupils equal and react to light. ENT: Normal ears and nose. Hearing intact. Normal lips and teeth. Oropharynx moist. NECK: Trachea midline. No thyromegaly. CHEST: Normal effort. LUNGS: Clear to auscultation bilaterally. CARDIOVASCULAR: Regular rate and rhythm. No murmur. No lower extremity edema. ABDOMEN: Soft, nontender. No hepatosplenomegaly. SKIN: Warm, dry, intact. No rash. MUSCULOSKELETAL: No cyanosis or clubbing. Strength 5/5 upper and lower extremities. NEURO: Cranial nerves intact. Normal sensation to light touch. PSYCH: Alert and oriented x3. Normal mood. Normal affect. Normal judgment. Normal memory. LABORATORY DATA: White count , hematocrit 42.7, platelets 211. Sodium 139, potassium 4.7, chloride 98, bicarb 25, BUN 18, creatinine 1.0, glucose 94. Troponin 0.06. BNP is 5860. Total bili 1.7, unconjugated 1.2. INR is 2.09. EKG reviewed by me and my personal interpretation is paced rhythm. Chest x-ray shows right upper lobe consolidation versus asymmetric pulmonary edema. This case was discussed with Dr. Ceferino Lopez, cardiology. They will see him in consultation. ASSESSMENT/PLAN: 1. Chest pain: He has an extensive coronary artery disease history, including coronary artery bypass graft x2 and multiple previous stents, including a recent left main stent. He presents with a borderline troponin; although, he is chronically elevated. He had a recent cardiac catheterization on February 2016 for which ongoing medical management was recommended. I spoke with Dr. Rosen. Cardiology will see him in the morning. He recommends scheduled nitro paste and increasing his Coreg overnight. Patient is currently chest pain free. Dr. Rosen feels they are unlikely to repeat an ischemic evaluation unless he has a significant troponin bump. I will make him n.p.o. after midnight, just in case some type of procedure is needed. 2. Dizziness: Although his chest tightness is consistent with his typical angina, this dizziness is completely new and not like anything he has ever experienced before. We will watch him on telemetry and interrogate his defibrillator. This could be hypovolemia related to an infection versus a cardiac arrhythmia. 3. Possible pneumonia: He presents with a leukocytosis with chills and a focal infiltrate on chest x-ray. Will go ahead and treat with antibiotics and will use ceftriaxone and doxycycline and avoid Levaquin and azithromycin, given the potential for QT prolongation, and his high risk for arrhythmia. He was recently hospitalized within the last month, but it was a very short stay, so I do not think we need to treat for hospital-acquired infection. 4. Rhjlx-tz-xhxlkyr systolic congestive heart failure, ejection fraction 15%. He may be mildly volume overloaded, so will give a one-time IV Lasix and increase his usual oral Lasix dose. 5. Atrial fibrillation: He has an ablation scheduled with Dr. Paniagua in the near future. Will continue his warfarin. 6. Bioprosthetic aortic and mitral valve replacements: Given his presentation of severe new-onset dizziness, I will check an echo. 7. Bipolar: He is on a high dose of Seroquel every night. Seroquel can also cause QT prolongation, so he will be watched on telemetry and have his defibrillator interrogated. CODE STATUS: DNR per patient request. ADMISSION STATUS: Will admit to observation, as if he does well, he might be able go home tomorrow. DVT PROPHYLAXIS: He is low risk given his chronic anticoagulation with warfarin. /[id number]/MODL MTDD
[2016-09-10] MEDS: WARFARIN SODIUM 5 MG TAB PO SCH (16:59)
[2016-09-10] MEDS: CARVEDILOL 6.25 MG TAB PO SCH (16:59)
[2016-09-10] MEDS: FERROUS SULFATE 325 MG TAB PO SCH (17:00)
[2016-09-10] MEDS: LORazepam 0.5 MG TAB PO PRN (19:35)
[2016-09-10] MEDS: NITROGLYCERIN 2% 1 GM PACKET TP SCH (19:38)
[2016-09-10] MEDS: HYDROCODONE/APAP 5/325 TAB PO PRN ×2 (20:17→21:35)
[2016-09-10] MEDS: PYRIDOXINE HCL 25 MG TAB PO SCH (20:18)
[2016-09-10] MEDS: PANTOPRAZOLE SODIUM 40 MG TAB PO SCH (20:18)
[2016-09-10] MEDS: FOLIC ACID 1 MG TAB PO SCH (20:18)
[2016-09-10] MEDS: DOXYCYCLINE HYCLATE 100 MG CAP/TAB PO SCH (20:18)
[2016-09-10] MEDS: MIRTAZAPINE 15 MG TAB PO SCH (20:19)
[2016-09-10] MEDS: ATORVASTATIN CALCIUM 40 MG TAB PO SCH (20:19)
[2016-09-10] MEDS: THIAMINE HCL 100 MG TAB PO SCH (20:19)
[2016-09-10] MEDS: GABAPENTIN 300 MG CAP PO SCH (20:20)
[2016-09-10] MEDS: TAMSULOSIN HCL 0.4 MG CAP PO SCH (20:20)
[2016-09-10] MEDS: FINASTERIDE 5 MG TAB PO SCH (20:20)
[2016-09-10] MEDS: ASPIRIN EC 81 MG TAB PO SCH (20:20)
[2016-09-10] MEDS: traZODone 50 MG TAB PO SCH (20:20)
[2016-09-10] MEDS: QUETIAPINE FUMARATE 400 MG PO SCH (20:34)
[2016-09-10] MEDS ORDERED: LISINOPRIL 5 MG TAB PO SCH (21:00)
[2016-09-10] MEDS ORDERED: NON-FORMULARY NEW DRUG (Omeprazole [Prilosec 20 Mg] 20 MG) PO SCH (21:00)
[2016-09-10] MEDS ORDERED: NON-FORMULARY NEW DRUG (Mirtazapine [Remeron] 45 MG) PO SCH (21:00)
[2016-09-10] MEDS ORDERED: QUEtiapine FUMARATE 300 MG TAB PO SCH (21:00)
[2016-09-10] MEDS ORDERED: QUEtiapine FUMARATE 200 MG TAB PO SCH (21:00)
[2016-09-10] MEDS ORDERED: QUETIAPINE FUMARATE 400 MG PO SCH (21:00)
[2016-09-11] MEDS ORDERED: NS 250 ML IV ONE ×2 (00:11→01:08)
[2016-09-11 01:44] LABS: % IMMATURE GRANULYOCYTES 0.4 % (0.0-1.1); ABSOLUTE IMMATURE GRANULOCYTES 0.03 10^3/uL (0.00-0.10); ADD DIFF? NO; ADD MORPH? NO; ADD SCAN? NO; ATYPICAL LYMPHOCYTE FLAG 10 (0-99); FRAGMENT RBC FLAG 0 (0-99); HEMATOCRIT 35.6 % (40.0-51.0); HEMOGLOBIN 12.1 g/dL (13.7-17.5); LEFT SHIFT FLG 0 (0-99); LIPEMIA HEMOLYSIS FLAG 90 (0-99); MEAN CELL HEMOGLOBIN 32.8 pg (27.9-34.1); MEAN CELL VOLUME 96.5 fL (81.5-99.8); MEAN PLATELET VOLUME 9.3 fL (8.7-11.7); PLATELET CLUMPS FLAG 0 (0-99); PLATELET COUNT 163 10^3/uL (150-400); RED BLOOD CELL COUNT 3.69 10^6/uL (4.40-6.38); RED CELL DISTRIBUTION WIDTH 13.2 % (11.5-15.2)
[2016-09-11 01:52] LABS: INR 2.69 (0.83-1.16); PROTIME(PATIENT) 28.9 SEC (12.0-15.0)
[2016-09-11 02:10] LABS: ALANINE AMINOTRANSFERASE 38 IU/L (21-72); ALBUMIN 3.6 g/dL (3.5-5.0); ALKALINE PHOSPHATASE 62 IU/L (38-126); ANION GAP 9 mEq/L (8-16); ASPARTATE AMINOTRANSFERASE 25 IU/L (17-59); BILIRUBIN,TOTAL 1.5 mg/dL (0.1-1.4); BILIRUBIN-CONJUGATED 0.4 mg/dL (0.0-0.5); BILIRUBIN-UNCONJUGATED 1.1 mg/dL (0.0-1.1); CALCIUM 8.8 mg/dL (8.5-10.4); CARBON DIOXIDE 23 mEq/l (22-31); CHLORIDE 101 mEq/L (97-110); CREATININE 1.4 mg/dL (0.7-1.3); GLOMERULAR FILTRATION RATE 50; GLUCOSE 100 mg/dL (70-100); POTASSIUM 4.2 mEq/L (3.5-5.2); SODIUM 133 mEq/L (134-144); TOTAL PROTEIN 6.2 g/dL (6.3-8.2)
[2016-09-11] MEDS: NITROGLYCERIN 2% 1 GM PACKET TP SCH ×4 (02:21→18:17)
[2016-09-11 02:22] LABS: TROPONIN I 0.086 ng/mL (0-0.034)
[2016-09-11] MEDS ORDERED: NS 500 ML IV ONE (05:06)
[2016-09-11] MEDS: HYDROCODONE/APAP 5/325 TAB PO PRN ×3 (07:21→20:52)
[2016-09-11] MEDS ORDERED: FUROSEMIDE 40 MG TAB PO SCH (09:00)
--- NOTE | 2016-09-11 09:23 | GCON ---
[f rep st] CONSULTATION CARDIOLOGY CONSULTATION DATE OF CONSULTATION: 09/11/2016 CHIEF COMPLAINT: Dizziness, chest pain. HISTORY OF PRESENT ILLNESS: This is a 75-year-old gentleman who has had an extensive cardiac histor y and admissions. He has a known ejection fraction of 15%. He has bioprosthetic valves, mitral and aortic. He has had CABG x2. He has recently been admitted for pacemaker generator change. He als o has been seen by Dr. Paniagua. Upcoming is an AV node ablation for atrial fibrillation. Yesterday sita arently he had some lightheaded dizziness and came to the emergency room, where he had a stable mild elevated troponin. He has had paced rhythm throughout his stay here. He actually was symptom-free in the emergency room and remains symptom-free at this time. He denies or orthopnea. A t this point, he appears hemodynamically stable. The question is were his palpitations atrial fibri llation? Pacer evaluation will be ordered. At this point, he is comfortable, stable. No [facility] at this time. I did discuss him seeing Dr. Rosen in our office for CHF evaluation. What we have decided is for him to spend the night tonight, get a pacer evaluation, and maybe Dr. Rosen can at [facility] introduce himself tomorrow. He does have a scheduled AV node ablation in the next week or so w ith Dr. Paniagua. He does not appear acutely decompensated. PAST MEDICAL HISTORY: Coronary artery disease, cardiomyopathy, valvular heart disease, COPD, bipola r disease. MEDICATIONS: See reconciliation form. ALLERGIES: No known allergies. SOCIAL HISTORY: He lives alone. He is DNR. His daughter apparently is power of document review attorney. PHYSICAL EXAMINATION: VITAL SIGNS: Blood pressure is 110/65. He is in AV-paced rhythm with PVCs. GENERAL: He is comfortable, alert and oriented. No acute issues. HEENT: Mouth, throat and oroph arynx are moist. LUNGS: Clear. No wheezing. CARDIOVASCULAR: Normal S1, S2. With a soft systoli c murmur. ABDOMEN: Soft, nontender. MUSCULOSKELETAL: No edema. LABORATORY DATA: White count of 6, hemoglobin 12. Creatinine 1.4. BNP was 5860. TSH 3.5. ASSESSMENT: 1. Lightheaded, dizzy. Question whether he had a run of atrial fibrillation, which he is known to have and is going to have an upcoming AV node ablation with Dr. Paniagua. He now is in AV-paced rhythm w ith PVCs, which appears to be chronic and baseline. We will have his pacer evaluated. 2. Chronic systolic heart failure, on multiple medications. It appears to be well compensated. We will either have Dr. Rosen see him in the hospital tomorrow or as an outpatient for further evaluat ion. Typically, he is followed by Dr. Scott. 3. Possible pneumonia. Will be followed by the hospitalist. /[id number]/MODL
[2016-09-11] MEDS: DOXYCYCLINE HYCLATE 100 MG CAP/TAB PO SCH ×2 (09:46→20:53)
[2016-09-11] MEDS: CLOPIDOGREL BISULFATE 75 MG TAB PO SCH (09:46)
[2016-09-11] MEDS: SPIRONOLACTONE 25 MG TAB PO SCH (09:46)
[2016-09-11] MEDS: LORazepam 0.5 MG TAB PO PRN ×4 (09:56→22:20)
--- NOTE | 2016-09-11 11:43 | HOSPPROG ---
Hospitalist Progress Note Assessment/Plan: Chest pain - CP free this am. Mild trop elevation is chronic. Case discussed with alexi Beckford. No further cardiac testing is recommended. Dizziness - Symptoms not as severe, but still present. Query if he had episode of rapid A fib vs hypotensive event. Pacemaker to be interrogated today. A fib - has ablation planned in [address] Paniagua. INR currently therapeutic. Rate controlled on Coreg, though holding today due to hypotension. Chronic heart failure - appears compensated if not a bit volume down. Recently had his outpt Lasix dose decreased from 40 mg to 20 mg. Received 40 IV Lasix on admission yesterday and became quite hypotensive during the night, resolved with IVF's. Remains normotensive today. -hold lasix today, resume outpt dose tomorrow -holding coreg, lisinopril for now due to hypotension Hypotension - 60's/40's after IV Lasix and increased Coreg dose. Improved with IVF's. -resume outpt coreg dose tomorrow if BP remains stable, holding antihypertensives today ?PNA - Cont Ceftriaxone / Doxy (avoiding Levaquin / Azithro due to risk for QT prolongation). Likely step down to oral therapy tomorrow and complete 7 d. Bioprosthetic aortic and mitral valves Dispo - inpt for ongoing management of PNA, dizziness and cardiac monitoring. Subjective: Pt still intermittently dizzy this am and complains of headache. No cough, fever, CP or SOB this am. He does endorse a chronic cough, which is unchanged. Objective: Vital Signs Temp Pulse Resp BP Pulse Ox 36.5 C 66 15 111/65 96 09/11/16 07:39 09/11/16 07:39 09/11/16 07:39 09/11/16 07:39 09/11/16 07:39 Laboratory Results 09/11/16 01:34 09/11/16 01:34 09/10/16 09/11/16 09/12/16 05:59 05:59 05:59 Intake Total 1350 Output Total 850 225 Balance 500 -225 PT 28.9 SEC (12.0-15.0) H 09/11/16 01:34 INR 2.69 (0.83-1.16) H 09/11/16 01:34 - Physical Exam Constitutional: no apparent distress Eyes: PERRL Ears, Nose, Mouth, Throat: moist mucous membranes Cardiovascular: regular rate and rhythym Respiratory: no respiratory distress, clear to auscultation Gastrointestinal: normoactive bowel sounds, soft, non-tender abdomen Skin: warm Musculoskeletal: full muscle strength Neurologic: AAOx3 Psychiatric: interacting appropriately, anxious ICD10 Worksheet Patient Problems: Problems Problem Status Onset Systolic CHF, acute on chronic Acute Chest pain Acute CHRONIC DISEASE MANAGEMENTTransitional Care Acute Hypoxemia Acute Pre-syncope Acute Cardiomyopathy Acute Alcoholic intoxication Acute Troponin level elevated Acute Elevated INR Acute Shortness of breath Acute Pneumonia Acute Acute chest pain Acute
[2016-09-11] MEDS: CARVEDILOL 6.25 MG TAB PO SCH (13:46)
[2016-09-11] MEDS: WARFARIN SODIUM 5 MG TAB PO SCH (17:37)
[2016-09-11] MEDS: FERROUS SULFATE 325 MG TAB PO SCH (18:17)
[2016-09-11] MEDS: ASPIRIN EC 81 MG TAB PO SCH (20:53)
[2016-09-11] MEDS: PYRIDOXINE HCL 25 MG TAB PO SCH (20:53)
[2016-09-11] MEDS: ATORVASTATIN CALCIUM 40 MG TAB PO SCH (20:53)
[2016-09-11] MEDS: DOCUSATE SODIUM 100 MG CAP PO SCH (20:53)
[2016-09-11] MEDS: FINASTERIDE 5 MG TAB PO SCH (20:53)
[2016-09-11] MEDS: PANTOPRAZOLE SODIUM 40 MG TAB PO SCH (20:53)
[2016-09-11] MEDS: traZODone 50 MG TAB PO SCH (20:55)
[2016-09-11] MEDS: GABAPENTIN 300 MG CAP PO SCH (20:55)
[2016-09-11] MEDS: MIRTAZAPINE 15 MG TAB PO SCH (20:55)
[2016-09-11] MEDS: TAMSULOSIN HCL 0.4 MG CAP PO SCH (20:55)
[2016-09-11] MEDS: THIAMINE HCL 100 MG TAB PO SCH (20:55)
[2016-09-11] MEDS: FOLIC ACID 1 MG TAB PO SCH (20:55)
[2016-09-11] MEDS: QUETIAPINE FUMARATE 400 MG PO SCH (20:58)
[2016-09-11] MEDS ORDERED: QUEtiapine FUMARATE 300 MG TAB PO SCH (21:00)
[2016-09-11] MEDS ORDERED: QUEtiapine FUMARATE 200 MG TAB PO SCH (21:00)
[2016-09-12 05:01] LABS: ANION GAP 7 mEq/L (8-16); CALCIUM 8.9 mg/dL (8.5-10.4); CARBON DIOXIDE 24 mEq/l (22-31); CHLORIDE 105 mEq/L (97-110); GLOMERULAR FILTRATION RATE > 60; GLUCOSE 84 mg/dL (70-100); POTASSIUM 4.7 mEq/L (3.5-5.2); SODIUM 136 mEq/L (134-144)
[2016-09-12] MEDS: HYDROCODONE/APAP 5/325 TAB PO PRN ×2 (07:59→14:48)
[2016-09-12] MEDS: DOXYCYCLINE HYCLATE 100 MG CAP/TAB PO SCH (07:59)
[2016-09-12] MEDS: LORazepam 0.5 MG TAB PO PRN ×2 (08:00→14:49)
[2016-09-12] MEDS: CLOPIDOGREL BISULFATE 75 MG TAB PO SCH (08:00)
[2016-09-12] MEDS: SPIRONOLACTONE 25 MG TAB PO SCH (08:00)
[2016-09-12] MEDS: DOCUSATE SODIUM 100 MG CAP PO SCH (08:00)
[2016-09-12 08:19] VITALS: BP 149/75; PULSE 91; RESP 17; TEMP 97.4; O2SAT 95
--- NOTE | 2016-09-12 11:11 | GDS ---
[f rep st] DISCHARGE SUMMARY DISCHARGE DIAGNOSES: 1. Chest pain, resolved. 2. Dizziness likely secondary to hypotension and over-diuresis, resolved. 3. Atrial fibrillation. 4. Chronic heart failure. 5. Possible pneumonia. 6. Bioprosthetic aortic and mitral valves. CONSULTANTS: Dr. Kenny Landers, Cardiology. HISTORY: For details please see dictated history and physical dated September 10, 2016, dictated by Dr. Gillian Mon. In brief, the patient is a 75-year-old male with an extensive cardiac history including a biventricu lar heart failure with ejection fraction of 15% with presence of an ICD, coronary artery disease, st atus post CABG, and extensive stenting, and atrial flutter with an ablation pending with Dr. Paniagua as well as bioprosthetic aortic and mitral valve who presents to the emergency department with dizzines s and chest pain. His predominant symptom was overwhelming dizziness. He is admitted to the hospit al for further evaluation. HOSPITAL COURSE: Patient was admitted to the telemetry unit. He was noted to have mild elevation o f his troponin which was chronic. His EKG was nonischemic. He was chest pain free upon arrival and remained chest pain-free throughout the hospitalization. He did endorse a productive cough and a c hest x-ray was suspicious for possible right upper lobe consolidation. Thus he was started on ceftr iaxone and doxycycline for a possible pneumonia. He also received 40 mg of IV Lasix on admission an d then developed significant hypotension with a blood pressure in the 60s over 40s that evening. He required volume resuscitation and his blood pressure improved. Also of note, he recently had his o utpatient Lasix dose reduced due to concern for over-diuresis. Overall, I suspect the patient became a bit over-diuresed and administration of IV Lasix hastened hi s hypotension. It is possible his dizziness episode may have been in the setting of rapid AFib; how ever, he does have an ablation plan with Dr. Paniagua next week so we will stay on course for this. He h ad no evidence of rapid AFib during the hospitalization. There was no evidence of decompensated hea rt failure. As a matter of fact, he required some IV fluids to resolve with his hypotension. The p atient remains stable. DISPOSITION: Patient is discharged home in stable condition. FOLLOWUP: 1. Dr. Scott, Cardiology. 2. Dr. Paniagua for planned ablation next week. He will need to address his anticoagulation status prio r to this procedure. He does plan to call Dr. Paniagua's office for further instructions. 3. Roxana Munoz, primary care. DISCHARGE MEDICATIONS: Please see [email or web address] for complete updated outpatient medication list. New medications on discharge include: Cefpodoxime 200 mg p.o. b.i.d. #10, no refills, and doxycycli ne 100 mg p.o. b.i.d. #10, no refills. He will continue all other outpatient medications as prescribed. /[id number]/MODL
--- NOTE | 2016-09-12 17:45 | SOAPPROG ---
MARIE Progress Note Assessment/Plan: 1. Systolic CHF - Pt presented with an acute CHF exacerbation. Potential precipitating factors include recent decrease in lasix, PAF, and pneumonia. Symptoms improved with diuresis. Currently at baseline. --> treat A-fib and pneumonia as outlined below. --> Continue coreg, lisinopril, and lasix at current doses. Pt will keep a close on his weight and lower extremity edema and will call for increased lasix if needed. 2. CAD - Pt has known CAD and is s/p CABG. Angiogram in 03/13 with 2VD and patent SVG to RCA and Haskins to LAD. Pt denies his typical anginal symptoms but has a mild low level troponin elevation c/w CHF and previous admissions. Do not suspect ACS. --> Continue medical management with asa, plavix, coreg, lisinopril, and lipitor. 3. CM - Pt has an ICM with an EF of 10 to 15%. He is s/p BiV ICD. --> Continue medical management with coreg, lisinopril, and spironolactone. 4. PAF - Pt has a history of PAF. He has multiple CHF exacerbations secondary to A-fib with RVR. He is anticipating AVN ablation this month. Pt can be fully anticoagulated for this. --> Continue coreg and coumadin. 5. Pneumonia - Appreciate medicine input Subjective: Pt admitted with symptoms of weight gain, increased lower extremity edema and increased dyspnea c/w CHF exacerbation. Symptoms improved with diuresis Currently at baseline Pt reports episodes of dizziness prior to admission No ETOH Objective: Vital Signs Temp Pulse Resp BP Pulse Ox 36.3 C 91 17 149/75 H 95 09/12/16 08:15 09/12/16 08:15 09/12/16 08:15 09/12/16 08:15 09/12/16 08:15 Laboratory Results 09/12/16 03:25 09/11/16 09/12/16 09/13/16 05:59 05:59 05:59 Intake Total 980 860 Output Total 1305 775 Balance -325 85 PT 28.9 SEC (12.0-15.0) H 09/11/16 01:34 INR 2.69 (0.83-1.16) H 09/11/16 01:34 Physical Exam - Physical Exam General Appearance: alert, no apparent distress Respiratory: lungs clear Cardiac/Chest: regular rate, rhythm, systolic murmur Abdomen: normal bowel sounds, non-tender, soft Skin: normal color Extremities: No pedal edema Neuro/Psych: alert, oriented x 3 ICD10 Worksheet Patient Problems: Problems Problem Status Onset Acute chest pain Acute Alcoholic intoxication Acute CHRONIC DISEASE MANAGEMENTTransitional Care Acute Cardiomyopathy Acute Chest pain Acute Elevated INR Acute Hypoxemia Acute Pneumonia Acute Pre-syncope Acute Shortness of breath Acute Systolic CHF, acute on chronic Acute Troponin level elevated Acute
[2016-09-15] MEDS ORDERED: WARFARIN SODIUM 5 MG TAB PO SCH (16:00)
== END 2016-09-12 15:14 | disposition home or self-care (01) | DRG 313 ==
LOC: INTOOBSV 14:14 → F2W 15:41 → OBSVTOIN 09-11 15:56
PROVIDERS: ADMIT Internal Medicine; ATTEND Hospitalist
DX: R07.9 Chest pain, unspecified (principal); J18.9 Pneumonia, unspecified organism; I50.23 Acute on chronic systolic (congestive) heart failure; I25.10 Atherosclerotic heart disease of native coronary artery without angina pectoris; R42 Dizziness and giddiness; I48.91 Unspecified atrial fibrillation; F31.9 Bipolar disorder, unspecified; Z66 Do not resuscitate; Z79.01 Long term (current) use of anticoagulants; Z95.1 Presence of aortocoronary bypass graft; Z95.3 Presence of xenogenic heart valve; Z95.5 Presence of coronary angioplasty implant and graft; Z86.73 Personal history of transient ischemic attack (TIA), and cerebral infarction without residual deficits; Z95.810 Presence of automatic (implantable) cardiac defibrillator
CPT/HCPCS: 96365; G0378; J0692; J0696; J1956

== ENCOUNTER → 2016-09-19 | Outpatient (CLI) | payer OTHER | LOC: BHFA 14:00 | PROVIDERS: ATTEND Internal Medicine Cardiovascular Disease | DX: I50.22 Chronic systolic (congestive) heart failure (principal); I25.810 Atherosclerosis of coronary artery bypass graft(s) without angina pectoris; R53.83 Other fatigue; R06.02 Shortness of breath ==

== ENCOUNTER 2016-09-20 11:10 | Observation (INO) | payer OTHER ==
[2016-09-20] MEDS ORDERED: MIDAZOLAM 2 MG/2 ML VIAL IVP ONE (11:18)
[2016-09-20] MEDS ORDERED: NS 1,000 ML IV ONE (11:18)
--- NOTE | 2016-09-20 11:32 | CPEKG ---
Heart Rate: 88 RR Interval: 682 P-R Interval: 170 QRSD Interval: 156 QT Interval: 428 QTC Interval: 518 P [place]: 0 QRS [place]: 0 T Wave [place]: 41 EKG Severity - ABNORMAL ECG - EKG Impression: VENTRICULAR-PACED COMPLEXES EKG Impression: PVCs Electronically Signed By: Ceferino Rosen 21-Sep-2016 09:11:18
[2016-09-20 12:06] LABS: % IMMATURE GRANULYOCYTES 0.4 % (0.0-1.1); ABSOLUTE IMMATURE GRANULOCYTES 0.03 10^3/uL (0.00-0.10); ADD DIFF? NO; ADD MORPH? NO; ADD SCAN? NO; ATYPICAL LYMPHOCYTE FLAG 0 (0-99); FRAGMENT RBC FLAG 0 (0-99); HEMATOCRIT 37.8 % (40.0-51.0); LEFT SHIFT FLG 0 (0-99); LIPEMIA HEMOLYSIS FLAG 90 (0-99); MEAN CELL HEMOGLOBIN 33.4 pg (27.9-34.1); MEAN CELL HEMOGLOBIN CONCENTR. 34.4 g/dL (32.4-36.7); MEAN CELL VOLUME 97.2 fL (81.5-99.8); MEAN PLATELET VOLUME 10.5 fL (8.7-11.7); PLATELET CLUMPS FLAG 0 (0-99); PLATELET COUNT 202 10^3/uL (150-400); RED BLOOD CELL COUNT 3.89 10^6/uL (4.40-6.38); RED CELL DISTRIBUTION WIDTH 13.2 % (11.5-15.2)
[2016-09-20] MEDS ORDERED: ISOPROTERENOL HCL 0.2 MG/ML 5ML AMP ONE (12:08)
[2016-09-20] MEDS ORDERED: BUPIVACAINE 0.5% 30 ML SDV ONE (12:08)
[2016-09-20] MEDS ORDERED: LIDOCAINE 1% 30 ML SDV ONE (12:08)
[2016-09-20] MEDS ORDERED: HEPARIN 10,000 UNIT/10 ML MDV ONE (12:08)
[2016-09-20 12:15] LABS: INR 2.25 (0.83-1.16); PROTIME(PATIENT) 25.1 SEC (12.0-15.0)
[2016-09-20 12:16] LABS: APTT 36.8 SEC (23.0-38.0)
[2016-09-20 12:26] LABS: ANION GAP 9 mEq/L (8-16); CALCIUM 9.5 mg/dL (8.5-10.4); CARBON DIOXIDE 23 mEq/l (22-31); CHLORIDE 105 mEq/L (97-110); CREATININE 0.9 mg/dL (0.7-1.3); GLOMERULAR FILTRATION RATE > 60; GLUCOSE 88 mg/dL (70-100); MAGNESIUM 2.1 mg/dL (1.6-2.3); SODIUM 137 mEq/L (134-144); SPECIMEN HEMOLYSIS 134
[2016-09-20] MEDS ORDERED: fentaNYL 100 MCG/2 ML INJ ONE (12:51)
[2016-09-20] MEDS ORDERED: PROPOFOL 200 MG/20 ML VIAL ONE ×2 (12:51)
--- NOTE | 2016-09-20 14:14 | CPEKG ---
Heart Rate: 62 RR Interval: 968 P-R Interval: 144 QRSD Interval: 168 QT Interval: 452 QTC Interval: 459 P [place]: 0 QRS [place]: 186 T Wave [place]: 72 EKG Severity - ABNORMAL ECG - EKG Impression: A-V DUAL-PACED RHYTHM Electronically Signed By: Ceferino Rosen 21-Sep-2016 09:10:51
[2016-09-20] MEDS ORDERED: ATROPINE SULFATE 1 MG/10 ML SYR ONE (14:16)
[2016-09-20] MEDS ORDERED: ONDANSETRON 4 MG/2 ML VIAL IVP PRN (14:27)
[2016-09-20] MEDS ORDERED: ACETAMINOPHEN 325 MG TAB PO PRN (14:27)
--- NOTE | 2016-09-20 14:27 | EPPROC ---
Electrophysiology Procedure Note: CATHETER MEDIATED ABLATION OF THE AV JUNCTION Procedures performed: 11437 AV node ablation Fluoroscopy INDICATION: Atrial fibrillation, unable to rate control despite maximally tolerated medical therapy Catheters & Anesthesia: The patient arrived in the Electrophysiology Laboratory in the fasting state. Moderate sedation was administered by Dr. Keysha Li. The right groin and left groin area were prepped and draped in the usual sterile manner. Appropriate non- invasive blood pressure, pulse oximetry and end-tidal CO2 monitoring was established. All catheters were placed percutaneously using the modified Seldinger technique and advanced into position under fluoroscopic guidance). At baseline the patient was noted to be in sinus rhythm. A #7 Serbian deflectable quadrapolar electrode catheter (2mm-5mm-2mm spacing) with 8 mm tip electrode was advanced to the right atrium. A total of 6 RF applications were delivered. RF#1 was applied in the area of the compact AV node. RF#2 was applied to the same area as RF#1. RF#3 was applied to the area of the fast AV rojas pathway. RF#4 was applied to the right midseptal tricuspid annulus. There was complete AV block after RF1 Cessation of pacing revealed that there was no escape rhythm while pacing at 30 ppm. Pacemaker implantation was done previously. The pacemaker was programmed to a lower rate of 80 ppm to reduce the risk of sudden associated with torsades de pointes. The lower rate will gradually be reduced to 60 ppm after 1 month . Fluoroscopically pacemaker lead positions were unchanged after procedure Pacemaker thresholds and impedances were unchanged after the procedure The catheters were removed. The patient was transferred to the cardiovascular holding area in stable condition. Vascular access sheaths were removed in the holding area. There were no apparent complications. CONCLUSIONS: Atrial fibrillation with rapid ventricular response. Successful ablation of the AV junction producing complete AV block. No escape rhythm while pacing at 30 ppm. No complications. Patient Problems: Problems Problem Status Onset Systolic CHF, acute on chronic Acute Chest pain Acute CHRONIC DISEASE MANAGEMENTTransitional Care Acute Hypoxemia Acute Pre-syncope Acute Cardiomyopathy Acute Alcoholic intoxication Acute Troponin level elevated Acute Elevated INR Acute Shortness of breath Acute Pneumonia Acute Acute chest pain Acute
[2016-09-20] MEDS ORDERED: WARFARIN SODIUM 5 MG TAB PO SCH (16:00)
[2016-09-20] MEDS: CARVEDILOL 3.125 MG TAB PO SCH (16:55)
[2016-09-20] MEDS ORDERED: FERROUS SULFATE 325 MG TAB PO SCH (17:00)
[2016-09-20] MEDS ORDERED: traZODone 50 MG TAB PO SCH (21:00)
[2016-09-20] MEDS ORDERED: VITAMIN B COMPLEX 1 EA CAP/TAB PO SCH (21:00)
[2016-09-20] MEDS ORDERED: THIAMINE HCL 100 MG TAB PO SCH (21:00)
[2016-09-20] MEDS ORDERED: MULTIVITAMINS 1 EACH TAB PO SCH (21:00)
[2016-09-20] MEDS ORDERED: TAMSULOSIN HCL 0.4 MG CAP PO SCH (21:00)
[2016-09-20] MEDS ORDERED: ASPIRIN EC 81 MG TAB PO SCH (21:00)
[2016-09-20] MEDS ORDERED: MIRTAZAPINE 30 MG TAB PO SCH (21:00)
[2016-09-20] MEDS ORDERED: GABAPENTIN 300 MG CAP PO SCH (21:00)
[2016-09-20] MEDS ORDERED: PYRIDOXINE HCL 25 MG TAB PO SCH (21:00)
[2016-09-20] MEDS ORDERED: FOLIC ACID 1 MG TAB PO SCH (21:00)
[2016-09-20] MEDS ORDERED: OMEGA-3 FATTY ACIDS 1,000 MG CAP PO SCH (21:00)
[2016-09-20] MEDS ORDERED: FINASTERIDE 5 MG TAB PO SCH (21:00)
[2016-09-20] MEDS ORDERED: QUEtiapine FUMARATE 200 MG TAB PO SCH (21:00)
[2016-09-20] MEDS ORDERED: ATORVASTATIN CALCIUM 40 MG TAB PO SCH (21:00)
[2016-09-20] MEDS ORDERED: TEMAZEPAM 15 MG CAP PO PRN (22:55)
[2016-09-21 05:11] LABS: % IMMATURE GRANULYOCYTES 0.7 % (0.0-1.1); ABSOLUTE IMMATURE GRANULOCYTES 0.05 10^3/uL (0.00-0.10); ADD DIFF? NO; ADD MORPH? NO; ADD SCAN? NO; ATYPICAL LYMPHOCYTE FLAG 0 (0-99); FRAGMENT RBC FLAG 0 (0-99); HEMATOCRIT 34.4 % (40.0-51.0); HEMOGLOBIN 11.7 g/dL (13.7-17.5); LEFT SHIFT FLG 0 (0-99); LIPEMIA HEMOLYSIS FLAG 90 (0-99); MEAN CELL HEMOGLOBIN 33.1 pg (27.9-34.1); MEAN CELL VOLUME 97.2 fL (81.5-99.8); MEAN PLATELET VOLUME 9.8 fL (8.7-11.7); PLATELET CLUMPS FLAG 10 (0-99); PLATELET COUNT 159 10^3/uL (150-400); RED BLOOD CELL COUNT 3.54 10^6/uL (4.40-6.38); RED CELL DISTRIBUTION WIDTH 13.2 % (11.5-15.2)
[2016-09-21 05:23] LABS: INR 2.58 (0.83-1.16)
[2016-09-21 05:32] LABS: ANION GAP 9 mEq/L (8-16); CALCIUM 9.1 mg/dL (8.5-10.4); CARBON DIOXIDE 22 mEq/l (22-31); CHLORIDE 107 mEq/L (97-110); CREATININE 0.9 mg/dL (0.7-1.3); GLOMERULAR FILTRATION RATE > 60; GLUCOSE 80 mg/dL (70-100); POTASSIUM 4.3 mEq/L (3.5-5.2); SODIUM 138 mEq/L (134-144)
[2016-09-21 05:42] LABS: CREATINE KINASE-MB FRACTION 1.67 ng/mL (0-3.19); TROPONIN I 0.114 ng/mL (0-0.034)
[2016-09-21 07:08] VITALS: BP 119/70; PULSE 83; RESP 20; TEMP 97.8; O2SAT 94
[2016-09-21] MEDS: CARVEDILOL 3.125 MG TAB PO SCH (08:45)
--- NOTE | 2016-09-21 08:57 | CPEKG ---
Heart Rate: 80 RR Interval: 750 P-R Interval: 164 QRSD Interval: 150 QT Interval: 432 QTC Interval: 499 P [place]: 0 QRS [place]: 190 T Wave [place]: 20 EKG Severity - ABNORMAL ECG - EKG Impression: ATRIAL-VENTRICULAR DUAL-PACED COMPLEXES EKG Impression: PVC Electronically Signed By: Ceferino Rosen 21-Sep-2016 09:10:27
[2016-09-21] MEDS ORDERED: CLOPIDOGREL BISULFATE 75 MG TAB PO SCH (09:00)
[2016-09-21] MEDS ORDERED: SPIRONOLACTONE 25 MG TAB PO SCH (09:00)
[2016-09-21] MEDS ORDERED: PANTOPRAZOLE SODIUM 40 MG TAB PO SCH ×2 (09:00)
--- NOTE | 2016-09-21 13:49 | GDS ---
[f rep st] DISCHARGE SUMMARY ADMITTING DIAGNOSES: 1. Atrial fibrillation with rapid ventricular response. 2. Biventricular implantable cardioverter defibrillator. 3. Coronary artery disease. 4. Congestive heart failure. 5. Valvular heart disease. DISCHARGE DIAGNOSES: 1. Atrial fibrillation with rapid ventricular response, status post atrioventricular node ablation. 2. Biventricular implantable cardioverter defibrillator. 3. Coronary artery disease. 4. Congestive heart failure. 5. Valvular heart disease. BRIEF HISTORY: This is a 75-year-old man with a history of CABG and bioprosthetic aortic valve repl acement in 2006 and bioprosthetic mitral valve replacement in 2007, PCIs in 2010 and 2015, biventric ular ICD, ejection fraction of 13%. He has had a history of rapid ventricular response with his atr ial fibrillation contributing to acute CHF requiring hospitalization in the past. It was recommende d that he have an AV node ablation to treat this. HOSPITAL COURSE: Patient underwent successful AV node ablation producing complete AV block with no escape rhythm while pacing at 30 beats per minute. Considering his history of CVA, the procedure wa s done with patient fully anticoagulated. The patient denies any bleeding or pain at his groin site . He has not had any chest pain or shortness of breath while up walking the kemp this morning. PHYSICAL EXAMINATION: VITAL SIGNS: Blood pressure is 119/70, pulse is 80, respirations 20, tempera ture is 36.6, O2 saturation on room air is 94%. CARDIAC: Regular rate and rhythm. LUNGS: Crackle s in the lower left lobe. EXTREMITIES: There is no edema. He has +1 bilateral pedal pulses. His g roin site in the right femoral vein is without bleeding, swelling, or tenderness. LABORATORY WORK: On 09/21, white count is 7.6, hemoglobin 11.7, hematocrit 34.4, platelets 159. IN R is 2.58. Sodium is 138, potassium 4.3, chloride 107, bicarb 22, BUN 20, creatinine 0.9, glucose i s 80. CK MB is 1.67. Troponin is 0.114 which is elevated and to be expected post AV node ablation. EKG demonstrates AV pacing at 80 beats per minute. FOLLOWUP: Followup appointment with Dr. Rosen on October 07 at 10:45. Followup appointment with Dr. Paniagua on October 19 at 1:30. ACTIVITIES: Groin precautions were reviewed with patient. No vigorous exercise or heavy lifting fo r 1 week. He reports understanding. /[id number]/MODL
[2016-09-22] MEDS ORDERED: WARFARIN SODIUM 7.5 MG TAB PO SCH (16:00)
--- NOTE | 2016-09-23 09:26 | CPEKG ---
Heart Rate: 81 RR Interval: 741 P-R Interval: 140 QRSD Interval: 172 QT Interval: 388 QTC Interval: 451 P [place]: 0 QRS [place]: -22 T Wave [place]: -7 EKG Severity - ABNORMAL ECG - EKG Impression: ATRIAL-VENTRICULAR DUAL-PACED COMPLEXES EKG Impression: Pacing inhibited to check for AV node conduction, patient is sp AV node ablation Electronically Signed By: Monroe Paniagua 23-Sep-2016 11:50:09
== END 2016-09-21 11:23 | disposition home or self-care (01) ==
LOC: FCATH 11:10 → F2W 13:54
PROVIDERS: ADMIT Internal Medicine Cardiovascular Disease; ATTEND Internal Medicine Cardiovascular Disease
PROC: 4A0234Z Measurement of Cardiac Electrical Activity, Percutaneous Approach (ICD-10-PCS; principal; 2016-09-20)
PROC: 02583ZZ Destruction of Conduction Mechanism, Percutaneous Approach (ICD-10-PCS; principal; 2016-09-20)
DX: I48.91 Unspecified atrial fibrillation (principal); I48.92 Unspecified atrial flutter; I50.9 Heart failure, unspecified; I25.10 Atherosclerotic heart disease of native coronary artery without angina pectoris; F31.9 Bipolar disorder, unspecified; E78.5 Hyperlipidemia, unspecified; I10 Essential (primary) hypertension; J44.9 Chronic obstructive pulmonary disease, unspecified; K21.9 Gastro-esophageal reflux disease without esophagitis; Z87.891 Personal history of nicotine dependence; Z86.73 Personal history of transient ischemic attack (TIA), and cerebral infarction without residual deficits; Z95.810 Presence of automatic (implantable) cardiac defibrillator; Z95.5 Presence of coronary angioplasty implant and graft; Z95.2 Presence of prosthetic heart valve; Z95.1 Presence of aortocoronary bypass graft; Z79.01 Long term (current) use of anticoagulants
CPT/HCPCS: 93005; 93609; 93650; 97165; C1732; G8987; G8988; G8989; J1644; J2250; J2704; J3010; J0461

== ENCOUNTER → 2016-10-17 | Outpatient (CLI) | payer OTHER | LOC: CIMAGING 10:21 | PROVIDERS: ATTEND Internal Medicine Cardiovascular Disease | DX: I50.23 Acute on chronic systolic (congestive) heart failure (principal); R06.02 Shortness of breath; Z95.810 Presence of automatic (implantable) cardiac defibrillator | CPT/HCPCS: 71020-PO ==

== ENCOUNTER → 2016-10-19 | Outpatient (CLI) | payer OTHER | LOC: BHFA 13:30 | PROVIDERS: ATTEND Internal Medicine Cardiovascular Disease | DX: I48.91 Unspecified atrial fibrillation (principal); Z95.810 Presence of automatic (implantable) cardiac defibrillator; I44.2 Atrioventricular block, complete; I25.5 Ischemic cardiomyopathy ==

== ENCOUNTER 2016-11-29 05:47 | Inpatient (IN) | payer OTHER ==
--- NOTE | 2016-11-29 05:55 | CPEKG ---
Heart Rate: 105 RR Interval: 571 P-R Interval: 172 QRSD Interval: 162 QT Interval: 392 QTC Interval: 519 P [place]: 0 QRS [place]: 166 T Wave [place]: -7 EKG Severity - ABNORMAL ECG - EKG Impression: A-V DUAL-PACED COMPLEXES W/ SOME INHIBITION Electronically Signed By: Madelyn Boateng 29-Nov-2016 11:23:58
[2016-11-29 06:06] LABS: % IMMATURE GRANULYOCYTES 0.4 % (0.0-1.1); ABSOLUTE IMMATURE GRANULOCYTES 0.07 10^3/uL (0.00-0.10); ADD DIFF? NO; ADD MORPH? NO; ADD SCAN? NO; ATYPICAL LYMPHOCYTE FLAG 10 (0-99); FRAGMENT RBC FLAG 0 (0-99); HEMATOCRIT 41.6 % (40.0-51.0); HEMOGLOBIN 13.9 g/dL (13.7-17.5); LEFT SHIFT FLG 0 (0-99); LIPEMIA HEMOLYSIS FLAG 80 (0-99); MEAN CELL HEMOGLOBIN 32.5 pg (27.9-34.1); MEAN CELL HEMOGLOBIN CONCENTR. 33.4 g/dL (32.4-36.7); MEAN CELL VOLUME 97.2 fL (81.5-99.8); MEAN PLATELET VOLUME 9.5 fL (8.7-11.7); PLATELET CLUMPS FLAG 0 (0-99); PLATELET COUNT 203 10^3/uL (150-400); RED BLOOD CELL COUNT 4.28 10^6/uL (4.40-6.38)
[2016-11-29 06:12] LABS: INR 1.32 (0.83-1.16); PROTIME(PATIENT) 16.1 SEC (12.0-15.0)
[2016-11-29 06:20] LABS: ALANINE AMINOTRANSFERASE 33 IU/L (21-72); ALBUMIN 3.9 g/dL (3.5-5.0); ALKALINE PHOSPHATASE 83 IU/L (38-126); ANION GAP 18 mEq/L (8-16); ASPARTATE AMINOTRANSFERASE 32 IU/L (17-59); BILIRUBIN,TOTAL 0.9 mg/dL (0.1-1.4); BILIRUBIN-CONJUGATED 0.3 mg/dL (0.0-0.5); BILIRUBIN-UNCONJUGATED 0.6 mg/dL (0.0-1.1); CALCIUM 8.8 mg/dL (8.5-10.4); CARBON DIOXIDE 19 mEq/l (22-31); CHLORIDE 103 mEq/L (97-110); CREATININE 1.2 mg/dL (0.7-1.3); GLOMERULAR FILTRATION RATE 59; GLUCOSE 169 mg/dL (70-100); MAGNESIUM 2.5 mg/dL (1.6-2.3); POTASSIUM 3.4 mEq/L (3.5-5.2); SODIUM 140 mEq/L (134-144); TOTAL PROTEIN 6.4 g/dL (6.3-8.2)
[2016-11-29] MEDS ORDERED: FUROSEMIDE 40 MG/4 ML VIAL ONE (06:21)
[2016-11-29] MEDS ORDERED: FUROSEMIDE 20 MG/2 ML VIAL ONE (06:21)
[2016-11-29] MEDS ORDERED: NITROGLYCERIN/D5W 50 MG/250 ML BOTTLE IV ONE (06:22)
[2016-11-29] MEDS ORDERED: SUCCINYLCHOLINE CHLORIDE*ANESTHESIA ONLY*200 MG/10 ML SYR IVP ONE (06:24)
[2016-11-29] MEDS ORDERED: methylPREDNISolone SOD SUCC 125 MG/2 ML VIAL IVP ONE (06:24)
[2016-11-29] MEDS ORDERED: PIPERACILLIN/TAZO 4.5 GM/DEX 100 ML IV ONE (06:24)
[2016-11-29] MEDS ORDERED: methylPREDNISolone SOD SUCC 125 MG/2 ML VIAL ONE (06:26)
[2016-11-29 06:29] LABS: TROPONIN I 0.054 ng/mL (0-0.034)
[2016-11-29] MEDS ORDERED: NITROGLYCERIN 2% 1 GM PACKET ONE (06:31)
[2016-11-29] MEDS ORDERED: FUROSEMIDE 40 MG/4 ML VIAL IVP ONE (06:34)
[2016-11-29] MEDS ORDERED: NITROGLYCERIN 2% 1 GM PACKET TP ONE (06:34)
[2016-11-29] MEDS ORDERED: CEFEPIME HCL 2 GM VIAL IV ONE (06:47)
[2016-11-29] MEDS ORDERED: CEFEPIME HCL 2 GM in D5W 100 ML IV ONE (07:06)
--- NOTE | 2016-11-29 07:14 | EDPHY ---
H & P Stated Complaint: Shortness of breath Time Seen by Provider: 11/29/16 05:52 HPI/ROS: This 76-year-old male with past medical history including coronary artery disease status post coronary artery bypass graft and prior stents, valvular heart disease with both aortic and mitral valve replacement, cardiomyopathy, COPD, TIA and PE presents to the emergency room tonight by [facility] with his grandson for acute onset of shortness of breath that started started at 3:00 a.m. this morning. Both he and his grandson state he felt fine yesterday. He has not been febrile. He has not had a new cough. He is complaining of some slight nonradiating chest discomfort in the center of his chest. He denies any change in his diet or pain or swelling in his lower extremities. He admits to missing one dose of his Coumadin but has been taking his other medications as directed. History is limited due to the patient's severe shortness of breath. ROS: The remainder of the 10 point review of systems is normal. Source: Patient, Family, Old records - Personal History Tetanus Vaccine Date: <10YRS - Medical/Surgical History PMH: Past medical history includes coronary artery disease status post CABG x2 with multiple previous stents, systolic congestive heart failure with most recent ejection fraction of 15%, atrial flutter, bioprosthetic aortic and mitral valve replacements, embolic stroke x2, COPD, bipolar disease, hyperlipidemia, paroxysmal atrial fibrillation, hypertension, history of alcohol and narcotic overuse, pulmonary embolism Past surgical history includes AICD, bioprosthetic aortic and mitral valve replacements, left TKA, right JACQUIE, coronary artery bypass grafting Family history includes mother with COPD and father with COPD and CHF Social history: Patient lives alone, no current tobacco or alcohol use No known drug allergies although he states Ativan makes him loopy Medications: The patient brings a typed drug list with him although he is unable to confirm the accuracy of it due to his severe shortness of breath. Medication list includes albuterol meter dose inhaler 2 puffs every 4-6 hours as needed, aspirin 81 mg 1 tablet daily, atorvastatin 40 mg daily Combivent 2 puffs 4 times every day, Coreg 3.125 mg 1 tablet twice a day, ferrous sulfate 325 mg 1 tablet daily, fish oil 1000 mg capsule daily, Flomax 0.4 mg daily, folic acid 1 mg daily, gabapentin 300 mg 2 tablets at night, Lasix 20 mg daily, lisinopril 5 mg daily, multivitamin 1 daily, Prilosec 20 mg daily, Proscar 5 mg daily, Seroquel XR 400 mg 1 tablet daily spironolactone 25 mg 1 tablet daily, thiamine 100 mg 1 tablet daily, trazodone 50 mg 1 tablet daily, vitamin B complex tab daily, vitamin B6 25 mg daily, warfarin as directed. mirtazapine, pantoprazole, and Plavix 75 mg are hand written and included on the list. PLEASE VERIFY THE ACCURACY OF THIS LIST WITH PATIENT AND PHARMACY. Hx Asthma: No Hx Chronic Respiratory Disease: No Hx Diabetes: No Hx Cardiac Disease: Yes Hx Renal Disease: No Hx Cirrhosis: No Hx Alcoholism: Yes Hx HIV/AIDS: No Hx Splenectomy or Spleen Trauma: No Other PMH: Coronary artery disease status post bypass x2, ischemic cardiomyopathy with ejection fraction of less than 10%, status post bioprosthetic aortic valve, L knee replacement, R hip replacements, automatic implantable cardiac defibrillator/pacer, alcoholism, 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 Atrial fibrillation. Bipolar disorder. hypertension. Hyperlipidemia - Family History Significant Family History: Heart disease, COPD - Social History Smoking Status: Former smoker Alcohol Use: Other (History of overuse) - Physical Exam Exam: General: Alert and oriented x3, in severe respiratory distress Vital signs: Per nursing notes however patient was borderline tachycardic with a heart rate of approximately 105, O2 sats in the low 80s, blood pressure approximately 118 mm of mercury systolic Skin: Cool, dry, dusky in color HEENT: Normocephalic, atraumatic, pupils equally round reactive to light and accommodation, extraocular movements intact, oropharynx with some scant blood tinged sputum Neck: Supple, mild bilateral JVD Cardiac: Regular with occasional ectopic beat, no edema of lower extremities Lungs: Bilateral diffuse rhonchi, baseline crackles, and expiratory wheeze Abdomen: Nondistended, no pulsatile masses Extremities: No edema Neuro: Cranial nerves 2-12 grossly intact, moves all extremities well, nonfocal exam Allergies/Adverse Reactions: lorazepam [From Ativan] Allergy (Verified 11/29/16 07:01) Home Medications: Medication Instructions Recorded Atorvastatin Calcium [Lipitor 40 40 mg PO HS 08/31/15 mg (*)] Carvedilol [Coreg (*)] 3.125 mg PO BIDMEAL 08/31/14 Ferrous Sulfate [Ferrous Sulf 325 325 mg PO DAILY@17 08/31/14 MG (*)] Folic Acid [Folic Acid 1 MG (*)] 1 mg PO HS 08/31/14 Multivitamins [Multivitamin (*)] 1 each PO HS 08/31/14 Spironolactone [Aldactone 25 MG 25 mg PO DAILY 08/31/14 (*)] Thiamine HCl 100 mg PO HS 08/31/14 traZODone [traZODONE 50MG (*)] 50 mg PO HS 08/31/14 Finasteride [Proscar 5 MG (*)] 5 mg PO HS 10/20/15 [place]lett-3 Fatty Acids [Fish Oil 1000 1,000 mg PO HS 10/20/15 mg (*)] Tamsulosin HCl [Flomax 0.4 MG (*)] 0.4 mg PO HS 10/20/15 Warfarin Sodium [Coumadin 5MG (*)] 5 mg PO SUMOTUWEFRSA@16 10/20/15 Gabapentin [Neurontin 300 MG (*)] 300 mg PO HS 08/16/16 Aspirin EC [Aspirin EC 81 mg (*)] 81 mg PO HS 08/17/16 Omeprazole [Prilosec 20 mg] 20 mg PO DAILY 08/17/16 Pyridoxine HCl [Vitamin B-6 25 mg 25 mg PO HS 08/17/16 (*)] Quetiapine Fumarate [Seroquel Xr] 400 mg PO HS 08/17/16 Vitamin B Complex [B Complex] 1 each PO HS 08/17/16 Clopidogrel Bisulfate [Plavix (*)] 75 mg PO DAILY #0 tab 08/18/16 Mirtazapine [Remeron] 45 mg PO HS 09/10/16 Warfarin Sodium [Coumadin 5MG (*)] 7.5 mg PO TH@16 09/10/16 Pantoprazole Sodium [Protonix 40mg 40 mg PO DAILY 09/20/16 (*)] Medical Decision Making - Diagnostics EKG Interpretation: Heart rate 105, dual paced complexes, occasional ectopic beat; Similar to prior EKG dated September 22, 2016 except HR was 80bpm on prior Imaging Results: Chest x-ray shows a large right upper lobe and possible right middle lobe infiltrate with superimposed CHF and COPD. There is a pacemaker present in the left chest. My impression was discussed and agreed with by the radiologist. Written report is pending. Imaging: Discussed imaging studies w/ legend maker Radiologist Procedures: The patient was placed on CPAP with 100% oxygen and titrated down as tolerated. An ABG was performed on the right wrist by me after Phalen's test without difficulty. ED Course/Re-evaluation: The patient was seen and examined immediately upon arrival to the emergency department. Vital signs were reviewed. He was was hypoxic, minimally tachycardic with a stable blood pressure. He was afebrile. The patient was placed on CPAP. Two functioning peripheral IVs were placed. The patient received Lasix 60 mg IV push, 2 mg of morphine IV push, a DuoNeb, Solu-Medrol 80 mg IV push, the patient's chest pain resolved and therefore the nitroglycerin drip was not administered and instead an inch of nitropaste was paste on his anterior chest wall, he also received 81 mg of aspirin which he normally takes daily. He subsequently received another 2 mg of morphine. The morphine was for both the initial chest discomfort and as an anxiolytic as the patient states he gets "loopy" with Ativan. His initial lactic acid was 9mmol/ L but the senior cytogenetics laboratory director states this was not transported on ice and the repeat lactic acid specimen was 2.8mmol/L per verbal. Patient had an elevated white blood cell count 16.8 with a fairly normal differential, he was not anemic. Chemistry shows a bicarb of 19, a borderline low potassium at 3.4, elevated magnesium at 2.5, elevated glucose at 169, an elevated B-natriuretic peptide at 3040, slightly subtherapeutic INR at 1.32, and an D-dimer at 0.75. Two sets of blood cultures were drawn and he was given cefepime 2 g IV piggyback. Due to the patient's CHF and elevated BNP, no IV fluids were administered. He improved markedly during his stay in the emergency room. He is still on CPAP with sats in the mid to high 90s. I discussed the patient with hospitalist Lyly Bustillo who accepts admission to the ICU. If the patient has not been transported to [facility] upon the completion of my shift, the oncoming emergency physician, Dr. Boateng, will be monitoring the patient. Differential Diagnosis: Differential Diagnosis includes but is not limitied to: Acute Respiratory Failure, CAD, [place], Ischemia, Angina, Exacerbation of COPD, Pneumonia, PE, CHF Consult/Admit Bed Type: Dr. Bustillo, Hospitalist; ICU Critical Care Time: I spent a total of 60 minutes of critical care time in obtaining history, performing a physical exam, bedside monitoring of interventions, collecting and interpreting tests and discussion with consultants but not including time spent performing procedures. - Data Points Laboratory Results: Laboratory Results 11/29/16 06:00 11/29/16 06:00 11/29/16 11/29/16 11/29/16 06:00 06:00 06:00 WBC RBC Hgb Hct MCV MCH MCHC RDW Plt Count MPV Neut % (Auto) Lymph % (Auto) [place] % (Auto) Eos % (Auto) Baso % (Auto) Nucleat RBC Rel Count Absolute Neuts (auto) Absolute Lymphs (auto) Absolute Monos (auto) Absolute Eos (auto) Absolute Basos (auto) Absolute Nucleated RBC Immature Gran % Immature Gran # PT 16.1 SEC H SEC (12.0-15.0) INR 1.32 H (0.83-1.16) D-Dimer 0.75 ug/mLFEU H ug/mLFEU (0.00-0.50) VBG Lactic Acid Sodium 140 mEq/L mEq/L (134-144) Potassium 3.4 mEq/L L mEq/L (3.5-5.2) Chloride 103 mEq/L mEq/L (97-110) Carbon Dioxide 19 mEq/l L mEq/l (22-31) Anion Gap 18 mEq/L H mEq/L (8-16) BUN 15 mg/dL mg/dL (7-23) Creatinine 1.2 mg/dL mg/dL (0.7-1.3) Estimated GFR 59 Glucose 169 mg/dL H mg/dL (70-100) Calcium 8.8 mg/dL mg/dL (8.5-10.4) Magnesium 2.5 mg/dL H mg/dL (1.6-2.3) Total Bilirubin 0.9 mg/dL mg/dL (0.1-1.4) Conjugated Bilirubin 0.3 mg/dL mg/dL (0.0-0.5) Unconjugated Bilirubin 0.6 mg/dL mg/dL (0.0-1.1) AST 32 IU/L IU/L (17-59) ALT 33 IU/L IU/L (21-72) Alkaline Phosphatase 83 IU/L IU/L (38-126) Troponin I 0.054 ng/mL H ng/mL (0-0.034) NT-Pro-B Natriuret Pep 3040 pg/mL H pg/mL (0-125) Total Protein 6.4 g/dL g/dL (6.3-8.2) Albumin 3.9 g/dL g/dL (3.5-5.0) 11/29/16 11/29/16 06:00 06:00 WBC 16.82 10^3/uL H 10^3/uL (3.80-9.50) RBC 4.28 10^6/uL L 10^6/uL (4.40-6.38) Hgb 13.9 g/dL g/dL (13.7-17.5) Hct 41.6 % % (40.0-51.0) MCV 97.2 fL fL (81.5-99.8) MCH 32.5 pg pg (27.9-34.1) MCHC 33.4 g/dL g/dL (32.4-36.7) RDW 13.0 % % (11.5-15.2) Plt Count 203 10^3/uL 10^3/uL (150-400) MPV 9.5 fL fL (8.7-11.7) Neut % (Auto) 59.0 % % (39.3-74.2) Lymph % (Auto) 34.1 % % (15.0-45.0) [place] % (Auto) 4.1 % L % (4.5-13.0) Eos % (Auto) 2.0 % % (0.6-7.6) Baso % (Auto) 0.4 % % (0.3-1.7) Nucleat RBC Rel Count 0.0 % % (0.0-0.2) Absolute Neuts (auto) 9.93 10^3/uL H 10^3/uL (1.70-6.50) Absolute Lymphs (auto) 5.74 10^3/uL H 10^3/uL (1.00-3.00) Absolute Monos (auto) 0.69 10^3/uL 10^3/uL (0.30-0.80) Absolute Eos (auto) 0.33 10^3/uL 10^3/uL (0.03-0.40) Absolute Basos (auto) 0.06 10^3/uL 10^3/uL (0.02-0.10) Absolute Nucleated RBC 0.00 10^3/uL 10^3/uL (0-0.01) Immature Gran % 0.4 % % (0.0-1.1) Immature Gran # 0.07 10^3/uL 10^3/uL (0.00-0.10) PT INR D-Dimer VBG Lactic Acid 9.0 mmol/L H mmol/L (0.7-2.1) Sodium Potassium Chloride Carbon Dioxide Anion Gap BUN Creatinine Estimated GFR Glucose Calcium Magnesium Total Bilirubin Conjugated Bilirubin Unconjugated Bilirubin AST ALT Alkaline Phosphatase Troponin I NT-Pro-B Natriuret Pep Total Protein Albumin Departure - Departure Disposition: [facility] Inpatient Acute Clinical Impression: Acute respiratory failure, Pneumonia involving right lung, Systolic congestive heart failure, COPD exacerbation, Hypoxemia, Troponin level elevated, Subtherapeutic anticoagulation Condition: Fair Referrals: Patient,NotPresent [Primary Care Provider] - As per Instructions
[2016-11-29 07:28] LABS: CALCULATED OXYGEN SATURATION 100 % (92-95); O2 CONCENTRATIION 15 % (0-100)
[2016-11-29] MEDS ORDERED: ASPIRIN 81 MG CHEWABLE TAB ONE (07:40)
[2016-11-29] MEDS ORDERED: IPRATROPIUM/ALBUTEROL 3 ML DEYVIAL ONE (08:23)
[2016-11-29] MEDS: IPRATROPIUM/ALBUTEROL 3 ML DEYVIAL IH PRN (08:29)
[2016-11-29] MEDS ORDERED: NS 1,000 ML IV ONE (08:34)
[2016-11-29] MEDS ORDERED: ONDANSETRON DISINTEGRATING 4 MG TAB PO PRN (08:34)
[2016-11-29] MEDS ORDERED: ONDANSETRON 4 MG/2 ML VIAL IVP PRN (08:34)
--- NOTE | 2016-11-29 08:38 | EDPHY ---
ED Progress Note Narrative: I assumed care of this patient from Dr. Gomez at 8:00 a.m.. At that time we are awaiting transport to the ICU at [facility]. He has been on CPAP with continued tachypnea and adequate oxygenation. He was trialed on nasal cannula and has had pulse oximetry in the low 90s on 6 L nasal cannula. He is noted to be hypotensive with systolic pressures around 80. The nitropaste was removed. 500 mL of normal saline IV will be administered. Paramedics arrived for transport at 8:30 a.m. IV fluids are infusing at that time. Pulse oximetry is 95%. He has just completed a DuoNeb. Blood pressure 82/45. He is alert, appropriate, and oriented x4.
[2016-11-29] MEDS ORDERED: NS 1,000 ML IV SCH (08:45)
[2016-11-29] MEDS ORDERED: ASPIRIN 81 MG CHEWABLE TAB PO ONE (08:46)
[2016-11-29] MEDS ORDERED: ENOXAPARIN 40 MG/0.4 ML SYR SC SCH (09:00)
[2016-11-29 10:34] LABS: COLOR YELLOW; LEUKOCYTE ESTERASE,URINE NEGATIVE (NEGATIVE); NITRITE,URINE NEGATIVE (NEGATIVE)
--- NOTE | 2016-11-29 11:22 | GHP ---
[f rep st] HISTORY AND PHYSICAL DATE OF ADMISSION: 11/29/2016 CHIEF COMPLAINT: Shortness of breath. HISTORY OF PRESENT ILLNESS: A 76-year-old male with a history of chronic systolic and diastolic hea rt failure, atrial fibrillation and flutter and COPD who presents with complaints of shortness of br eath to the [facility] [place]. The patient reports sudden onset of shortness of breath that began approximately 4 :00 a.m. the morning of presentation. Does endorse some cough that has been unproductive of sputum. Denies any subjective fevers or chills. Denies any nausea, vomiting, changes in his stool. Denie s dysuria, hematuria, lower extremity edema or orthopnea. The patient has a very low level of activ ity at home which he reports has been unchanged. He has chronic substernal chest pressure which aga in is intermittent, not clearly provoked by exertion. He reports the tempo of that substernal chest pressure has been unchanged in the past 24-48 hours. The patient does not chronically use oxygen a t home. Does report that his activity level is low and he will get dyspnea both on exertion and at rest depending on the situation. PAST MEDICAL HISTORY: 1. Chronic systolic heart failure. Ejection fraction last estimated at 14%. 2. Coronary artery disease status post CABG x2 with multiple stents. 3. Atrial flutter. 4. Bioprosthetic aortic and mitral valve. 5. History of embolic stroke x2. 6. COPD. 7. Bipolar disorder. SOCIAL HISTORY: Negative for tobacco, alcohol or illicit drugs. ADVANCED DIRECTIVES: The patient is do not resuscitate. He wishes his daughter to be his medical d ecision maker. FAMILY HISTORY: Positive for heart disease. He has a younger brother who is already from complications of heart disease. REVIEW OF SYSTEMS: A 10-point review of systems is negative with the exception of that reported in the HPI. PHYSICAL EXAMINATION: VITAL SIGNS: Blood pressure upon arrival to the ICU systolic is 75/46, heart rate in the 80s, respiratory rate 19, saturating 90% on 6 L of oxygen, afebrile at 36.8. GENERAL: This is a thin-appearing chronically ill-appearing male, in no acute distress. HEENT: Notable for dry mucous membranes. Eye exam is negative for any icterus. CARDIAC: Patient is regular rate and rhythm. Systolic murmur is heard. PULMONARY: Patient has bilateral rhonchi, crackles also noted at the base on the right. No wheezing is appreciated. GASTROINTESTINAL: Positive bowel sounds. A BDOMEN: Soft and nontender in all 4 quadrants. MUSCULOSKELETAL: Negative for any lower extremity edema. SKIN: Negative for any rashes. NEUROLOGIC: He is alert and oriented x3, conversant and me ntating normally. PSYCHIATRIC: He is pleasant and cooperative on interview and examination. DATA: White count 16.8, hematocrit 41.6, platelet count of 203. INR is 1.32. Sodium 140, potassiu m 3.4, creatinine 1.2, baseline appears to be closer to 1. Anion gap is 18. Troponin is 0.054, sita ears to run a baseline indeterminate troponin ranging from 0.03 to 0.1. BNP is 3040, last checked 1 720, does not have a normal BNP in the system. Chest x-ray, which I personally reviewed and interpr eted, does show right upper lobe infiltrate. EKG, which I personally reviewed and interpreted, show s a paced rhythm. ASSESSMENT AND PLAN: This is a 76-year-old male presenting with shortness of breath. 1. Sepsis/septic shock. Patient is presenting with a white count of 16,000, source pulmonary. Blo od pressures systolic in the 70s where baseline appears closer to the 120s. Will initiate fluid res uscitation with normal saline. Empiric antibiotics for community-acquired pneumonia with ceftriaxon e and azithromycin. Blood cultures have been obtained from the [facility]. Will charity tor his hemodynamic stability closely in the ICU. May need to place central access for pressors if he does not appropriately respond to fluid resuscitation alone. 2. Community-acquired pneumonia. The patient has a lobular infiltrate, leukocytosis and shortness of breath. Again, blood cultures have been sent. Will start ceftriaxone and azithromycin. The pat ient did receive steroids in the emergency department. Can discuss the continuation of these with P halley. 3. Acute hypoxic respiratory failure secondary to community-acquired pneumonia. There were initial concerns it may be related to heart failure. Patient clinically appears euvolemic. Will hold on a ny additional diuresis at this time. 4. Hypotension, suspect multifactorial, acute infection plus diuresis. Again, will fluid resuscita te carefully and follow patient's hemodynamics parameters. 5. Severe chronic systolic heart failure. The patient will be tenuous to fluid resuscitate. Will keep in the ICU monitoring closely with his early fluid boluses. No need for additional imaging of his heart at this time. Will obviously hold cardiac medications while hypotensive. Can add medicat ions back as he is more hemodynamically stable. Holding the patient's Entresto at this time as well as spironolactone. 6. Bioprosthetic valve replacements. Patient is on anticoagulation which we can continue. 7. History of atrial fibrillation/flutter with pacemaker. Will hold rate control medications. Ant icoagulation can continue. Monitor on telemetry. 8. BPH. Will hold his Proscar today. Monitor his hemodynamics. 9. Bipolar. Will continue his Remeron and Seroquel. 10. Prophylaxis. Patient is on warfarin. 11. Diet. Cardiac. 12. Disposition. I expect greater than 2 midnights. The patient is presenting septic with serious underlying medical comorbidities requiring careful monitoring in the ICU. I have discussed the case with Dr. Mack in the ICU. Patient will be admitted and carefully fluid r esuscitated in the early hours of his stay. /[id number]/MODL
[2016-11-29] MEDS: oxyCODONE IR 5 MG TAB PO PRN ×2 (11:41→19:38)
[2016-11-29] MEDS: AZITHROMYCIN IV 500 MG in D5W 250 ML IV SCH (11:41)
[2016-11-29] MEDS ORDERED: ALBUMIN 25% 100 ML IV ONE (12:54)
[2016-11-29] MEDS ORDERED: ALBUMIN 25% 50 ML SOLN IV ONE (13:00)
[2016-11-29] MEDS ORDERED: ALBUMIN 25% 100 ML SOLN IV ONE (13:05)
[2016-11-29] MEDS ORDERED: ALBUMIN 25% 50 ML IV ONE (13:05)
--- NOTE | 2016-11-29 13:57 | GCON ---
[f rep st] CONSULTATION CRITICAL CARE CONSULT DATE OF CONSULTATION: 11/29/2016 HISTORY OF PRESENT ILLNESS: This patient is a 76-year-old male with an extensive cardiac history, i ncluding longstanding chronic congestive heart failure and an ejection fraction of about 10% to 15%. He had been in his stable usual state of health up until the middle of the night, where he woke up extremely short of breath. He did not have any fevers, chills, sweats, sick contacts, or hemoptysi s during this period of time, and was unaware of any aspiration events. However, when he arrived in the emergency room, he was apparently in severe respiratory distress and required CPAP. A BNP was obtained that showed a level of about 3000, so he was given morphine twice, Lasix 60 mg and nitrogly cerin paste. In addition, he received DuoNeb, Solu-Medrol, aspirin and eventually antibiotics once his chest x-ray was observed which did show a dense right upper lobe consolidation consistent with p neumonia. He initially was hypotensive when he arrived in the intensive care unit, but his oxygen saturation h ad improved and he no longer required noninvasive ventilation. He was given IV fluids and his blood pressure improved, and never needed pressors. REVIEW OF SYSTEMS: Otherwise negative. PAST MEDICAL HISTORY: Includes coronary artery disease, congestive heart failure with an ejection f raction of 15%, atrial flutter, strokes x2 in the past, COPD, bipolar disorder, hyperlipidemia, paro xysmal atrial fibrillation, pulmonary embolism, hypertension and a history of narcotics and alcohol abuse in the past. PAST SURGICAL HISTORY: Includes coronary artery bypass grafting, aortic valve replacement, mitral v alve replacement, AICD placement, total hip and total knee arthroplasties, and an AV rojas ablation on September 20, 2016. SOCIAL HISTORY: He is a former smoker, but none currently. No alcohol. No IV drug use. FAMILY HISTORY: Noncontributory at this time. MEDICATIONS: Currently include DuoNeb, Lipitor, azithromycin, ceftriaxone, Plavix, iron, folic acid , Remeron, multivitamin, Zofran, Protonix, B6, Seroquel, trazodone, warfarin, Coumadin. PHYSICAL EXAMINATION: VITAL SIGNS: He was afebrile. His blood pressure was 97/63 with a heart rat e of 88, oxygen saturation 96% on 2 L. GENERAL: He was awake and alert, in no apparent distress. Able to speak in full sentences without using accessory muscles for breathing. HEENT: Pupils were equally round and reactive to light, nonicteric and noninjected. Mucous membranes were moist, witho ut erythema or exudate. NECK: Supple, without adenopathy. There was no jugular vein distention th at I could detect in an upright posture. LUNGS: Breath sounds were diminished in the right upper l obe, but there was no obvious wheezing, rhonchi or stridor. HEART: Appeared to have a regular rate and rhythm. ABDOMEN: Soft, nontender, nondistended, without hepatosplenomegaly. EXTREMITIES: Sh ow no clubbing, cyanosis, or edema. NEUROLOGIC: Nonfocal, including cranial nerves and deep tendon reflexes. LABORATORY DATA: Includes a white count of 16.8, hematocrit 41, platelets of 203. INR 1.32. Basic metabolic panel was unremarkable, save for a slightly elevated glucose. Urinalysis was negative. Blood cultures are negative currently. IMAGING: Chest x-ray as is described above with a right upper lobe consolidation. ASSESSMENT AND PLAN: 1. Hypotension. This could be the result of either excess diuresis and/or septic shock. I think b oth are being treated currently with a sepsis protocol. He is getting fluid back since he did get L asix in the emergency department and may need additional fluids. Of course, the challenge here is h is EF of 15%, so will have to be very cautious about fluid overload. A PICC line is going to be alfred avery shortly. Will use pressors as needed to maintain a MAP of 65 or better. 2. Pneumonia. This looks like community-acquired pneumonia to me. Procalcitonin is pending at thi s time. Strep and Legionella urinary antigens are pending. I agree with the antibiotic choices of ceftriaxone and Zithromax. 3. Hypoxemia. This is likely due to his pneumonia and less likely due to heart failure. He is not normally on oxygen at home, but his oxygen requirements currently are fairly low and I do not feel that intubation is imminent. 4. Heart failure. This is a chronic problem, with multiple insults in the past. With the exceptio n of diuretics at this time, I think we should make an attempt to find out his home medications and treat him the same, assuming his blood pressure normalizes. A total of about 45 minutes of critical care time was required for this patient. /[id number]/MODL
[2016-11-29] MEDS: FERROUS SULFATE 325 MG TAB PO SCH (17:10)
[2016-11-29] MEDS: WARFARIN SODIUM 5 MG TAB PO SCH (17:10)
[2016-11-29] MEDS: LORazepam 0.5 MG TAB PO PRN (18:09)
[2016-11-29] MEDS: QUEtiapine FUMARATE 200 MG TAB PO SCH (20:35)
[2016-11-29] MEDS: PYRIDOXINE HCL 25 MG TAB PO SCH (20:35)
[2016-11-29] MEDS: OMEGA-3 FATTY ACIDS 1,000 MG CAP PO SCH (20:35)
[2016-11-29] MEDS: MULTIVITAMINS 1 EACH TAB PO SCH (20:35)
[2016-11-29] MEDS: ATORVASTATIN CALCIUM 40 MG TAB PO SCH (20:35)
[2016-11-29] MEDS: MIRTAZAPINE 15 MG TAB PO SCH (20:35)
[2016-11-29] MEDS: THIAMINE HCL 100 MG TAB PO SCH (20:36)
[2016-11-29] MEDS: VITAMIN B COMPLEX 1 EA CAP/TAB PO SCH (20:36)
[2016-11-29] MEDS: PANTOPRAZOLE SODIUM 40 MG TAB PO SCH (20:36)
[2016-11-29] MEDS: FOLIC ACID 1 MG TAB PO SCH (20:36)
[2016-11-29] MEDS: traZODone 50 MG TAB PO SCH (20:37)
[2016-11-29] MEDS ORDERED: NON-FORMULARY NEW DRUG (Mirtazapine [Remeron] 45 MG) PO SCH (21:00)
[2016-11-29] MEDS ORDERED: QUETIAPINE FUMARATE 400 MG PO SCH (21:00)
[2016-11-29 22:09] LABS: POTASSIUM 3.9 mEq/L (3.5-5.2)
[2016-11-30] MEDS: LORazepam 0.5 MG TAB PO PRN ×2 (03:40→09:51)
[2016-11-30 04:04] LABS: % IMMATURE GRANULYOCYTES 0.5 % (0.0-1.1); ABSOLUTE IMMATURE GRANULOCYTES 0.07 10^3/uL (0.00-0.10); ADD DIFF? NO; ADD MORPH? NO; ADD SCAN? NO; ATYPICAL LYMPHOCYTE FLAG 0 (0-99); FRAGMENT RBC FLAG 0 (0-99); HEMATOCRIT 34.2 % (40.0-51.0); HEMOGLOBIN 11.8 g/dL (13.7-17.5); LEFT SHIFT FLG 0 (0-99); LIPEMIA HEMOLYSIS FLAG 90 (0-99); MEAN CELL HEMOGLOBIN CONCENTR. 34.5 g/dL (32.4-36.7); MEAN CELL VOLUME 95.5 fL (81.5-99.8); MEAN PLATELET VOLUME 9.6 fL (8.7-11.7); PLATELET CLUMPS FLAG 0 (0-99); PLATELET COUNT 132 10^3/uL (150-400); RED BLOOD CELL COUNT 3.58 10^6/uL (4.40-6.38); RED CELL DISTRIBUTION WIDTH 13.2 % (11.5-15.2)
[2016-11-30 04:13] LABS: INR 2.02 (0.83-1.16)
[2016-11-30 04:28] LABS: ANION GAP 12 mEq/L (8-16); CARBON DIOXIDE 21 mEq/l (22-31); CHLORIDE 110 mEq/L (97-110); CREATININE 0.9 mg/dL (0.7-1.3); GLOMERULAR FILTRATION RATE > 60; GLUCOSE 114 mg/dL (70-100); SODIUM 143 mEq/L (134-144)
[2016-11-30] MEDS: oxyCODONE IR 5 MG TAB PO PRN ×3 (06:41→20:11)
[2016-11-30] MEDS ORDERED: NON-FORMULARY NEW DRUG (Omeprazole [Prilosec 20 Mg] 20 MG) PO SCH (09:00)
[2016-11-30] MEDS: AZITHROMYCIN IV 500 MG in D5W 250 ML IV SCH (09:02)
[2016-11-30] MEDS: CLOPIDOGREL BISULFATE 75 MG TAB PO SCH (09:02)
[2016-11-30] MEDS: PANTOPRAZOLE SODIUM 40 MG TAB PO SCH ×2 (09:02→20:10)
--- NOTE | 2016-11-30 09:57 | PDINTPN ---
Child And Family Therapist Progress Note Assessment/Plan: Assessment/plan: 76 M with significant cardiac history admitted 11/29/16 with sudden onset SOB, though initially to be CHF so treated with lasix, CPAP, and nitropaste, but CXR showed clear RUL pneumonia. His BP subsequently dropped and was given cautious fluid replacement (EF10-15%) with improvement in BP. He was also given ceftriaxone/zithromax as well and improved. * CAP- Cultures negative to date as are strep/legionella urinary antigens. Continue abx for now and stable for floor. * Hypotension- Resolved. More likely iatrogenic then septic shock given fluid dynamics. Agree with resume cardiac meds * Dyspnea 2/2 PNA- I samir[ect he has a baseline level of dyspnea related to his severe CHF. His slight SOB today will hopefully equilibrate without intervention. * OK for floor Objective: Vital Signs Temp Pulse Resp BP Pulse Ox 36.8 C 83 14 117/63 96 11/29/16 20:00 11/30/16 06:00 11/30/16 06:00 11/30/16 06:00 11/30/16 06:00 Laboratory Results 11/30/16 03:50 11/30/16 03:50 11/29/16 11/30/16 12/01/16 05:59 05:59 05:59 Intake Total 1489 Output Total 2250 Balance -761 PT 23.0 SEC (12.0-15.0) H 11/30/16 03:50 INR 2.02 (0.83-1.16) H 11/30/16 03:50 Physical Exam - Physical Exam General Appearance: WD/WN, alert, no apparent distress EENT: PERRL/EOMI Neck: supple Respiratory: decreased breath sounds, crackles (few), No respiratory distress Cardiac/Chest: regular rate, rhythm, No edema Abdomen: non-tender, soft, No distended Skin: normal color, warm/dry Lymphatic: no adenopathy Extremities: No pedal edema Neuro/Psych: alert, normal mood/affect, oriented x 3 ICD10 Worksheet Patient Problems: Problems Problem Status Onset Acute respiratory failure Acute COPD exacerbation Acute Hypoxemia Acute Pneumonia involving right lung Acute Subtherapeutic anticoagulation Acute Systolic congestive heart failure Acute Troponin level elevated Acute Acute chest pain Acute Alcoholic intoxication Acute CHRONIC DISEASE MANAGEMENTTransitional Care Acute Cardiomyopathy Acute Chest pain Acute Elevated INR Acute Pneumonia Acute Pre-syncope Acute Shortness of breath Acute Systolic CHF, acute on chronic Acute
[2016-11-30] MEDS: IPRATROPIUM/ALBUTEROL 3 ML DEYVIAL IH PRN (12:27)
[2016-11-30] MEDS: ACETYLCYSTEINE 20% IH/PO 30 ML VIAL IH SCH ×3 (16:08→22:10)
--- NOTE | 2016-11-30 16:24 | HOSPPROG ---
Hospitalist Progress Note Assessment/Plan: # Septic shock - hypotension, leukocytosis 2/2 pneumonia - hemodynamics markedly improved after early fluid resuscitation and abx Blood and sputum CX NGTD - CXR (personally reviewed and interpreted) with RUL infiltrate - cont empiric abx - can dc IVF as taking appropriate PO # CAP - leukocytosis improved with empiric abx - cont azith and ceftriaxone # BART 2/2 sepsis and hypoperfusion - creatinine 1.2 to 0.9 this am with fluids - follow # Acute hypoxic respiratory failure - 2/2 CAP and today possibly some volume overload with sepsis fluid resuscitation- oxygen saturations 98% on 2L - cont abx and supportive care - no diuretics today # Chronic systolic HF - with improved hemodynamics we can safely restart home medications including carvedilol and Entresto - can resume diuretics tomorrow if stable # atrial fibrillation - INR 2 this am - rates controlled 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 # prop- warfarin # diet - cardiac # dispo - > 2MN as presented septic with underling severe sytolic HF need close monitoring I have discussed the case with Pulmonary - we will not diurese today but follow patient off fluid resuscitation Subjective: feels better Objective: Vital Signs Temp Pulse Resp BP Pulse Ox 36.4 C 93 27 H 123/79 H 98 11/30/16 15:51 11/30/16 15:51 11/30/16 15:51 11/30/16 15:51 11/30/16 15:51 Microbiology 11/30/16 10:15 - Final Sputum, Expectorated Laboratory Results 11/30/16 03:50 11/30/16 03:50 11/29/16 11/30/16 12/01/16 05:59 05:59 05:59 Intake Total 1489 Output Total 2250 Balance -761 PT 23.0 SEC (12.0-15.0) H 11/30/16 03:50 INR 2.02 (0.83-1.16) H 11/30/16 03:50 - Physical Exam Constitutional: appears nourished Eyes: anicteric sclera Ears, Nose, Mouth, Throat: moist mucous membranes Cardiovascular: regular rate and rhythym Respiratory: no respiratory distress, rhonchi, No expiratory wheeze Gastrointestinal: normoactive bowel sounds, soft, non-tender abdomen Genitourinary: no bladder fullness Skin: warm, normal color Musculoskeletal: No asymmetric calves Neurologic: AAOx3 Psychiatric: interacting appropriately, not anxious Lymph, Heme, Immunologic: no cervical LAD ICD10 Worksheet Patient Problems: Problems Problem Status Onset Acute respiratory failure Acute COPD exacerbation Acute Hypoxemia Acute Pneumonia involving right lung Acute Subtherapeutic anticoagulation Acute Systolic congestive heart failure Acute Troponin level elevated Acute Acute chest pain Acute Alcoholic intoxication Acute CHRONIC DISEASE MANAGEMENTTransitional Care Acute Cardiomyopathy Acute Chest pain Acute Elevated INR Acute Pneumonia Acute Pre-syncope Acute Shortness of breath Acute Systolic CHF, acute on chronic Acute
[2016-11-30] MEDS: WARFARIN SODIUM 5 MG TAB PO SCH (16:39)
[2016-11-30] MEDS: FERROUS SULFATE 325 MG TAB PO SCH (16:39)
[2016-11-30] MEDS: ALBUTEROL 3 ML DEYVIAL IH SCH ×2 (16:59→22:10)
[2016-11-30] MEDS: CARVEDILOL 6.25 MG TAB PO SCH (17:48)
[2016-11-30] MEDS ORDERED: ALBUTEROL 3 ML DEYVIAL IH SCH (18:00)
[2016-11-30] MEDS: ACETAMINOPHEN 325 MG TAB PO PRN (18:22)
[2016-11-30] MEDS: QUEtiapine FUMARATE 200 MG TAB PO SCH (20:10)
[2016-11-30] MEDS: VITAMIN B COMPLEX 1 EA CAP/TAB PO SCH (20:10)
[2016-11-30] MEDS: OMEGA-3 FATTY ACIDS 1,000 MG CAP PO SCH (20:10)
[2016-11-30] MEDS: MULTIVITAMINS 1 EACH TAB PO SCH (20:10)
[2016-11-30] MEDS: FOLIC ACID 1 MG TAB PO SCH (20:10)
[2016-11-30] MEDS: MIRTAZAPINE 15 MG TAB PO SCH (20:10)
[2016-11-30] MEDS: ATORVASTATIN CALCIUM 40 MG TAB PO SCH (20:10)
[2016-11-30] MEDS: PYRIDOXINE HCL 25 MG TAB PO SCH (20:11)
[2016-11-30] MEDS: THIAMINE HCL 100 MG TAB PO SCH (20:12)
[2016-11-30] MEDS: traZODone 50 MG TAB PO SCH (20:12)
[2016-11-30] MEDS: SACUBITRIL/VALSARTAN 24/26MG 1 EA TAB PO SCH (20:14)
[2016-11-30] MEDS: FINASTERIDE 5 MG TAB PO SCH (21:57)
[2016-12-01 05:21] LABS: HEMATOCRIT 32.1 % (40.0-51.0); MEAN CELL HEMOGLOBIN 32.6 pg (27.9-34.1); MEAN CELL HEMOGLOBIN CONCENTR. 34.3 g/dL (32.4-36.7); MEAN CELL VOLUME 95.3 fL (81.5-99.8); RED BLOOD CELL COUNT 3.37 10^6/uL (4.40-6.38); RED CELL DISTRIBUTION WIDTH 13.6 % (11.5-15.2)
[2016-12-01 05:35] LABS: INR 3.58 (0.83-1.16); PROTIME(PATIENT) 36.3 SEC (12.0-15.0)
[2016-12-01] MEDS: ACETYLCYSTEINE 20% IH/PO 30 ML VIAL IH SCH ×4 (05:51→22:28)
[2016-12-01] MEDS: ALBUTEROL 3 ML DEYVIAL IH SCH ×4 (05:51→22:15)
[2016-12-01] MEDS: SACUBITRIL/VALSARTAN 24/26MG 1 EA TAB PO SCH ×2 (08:28→20:52)
[2016-12-01] MEDS: CLOPIDOGREL BISULFATE 75 MG TAB PO SCH (08:28)
[2016-12-01] MEDS: CARVEDILOL 6.25 MG TAB PO SCH ×2 (08:28→17:19)
[2016-12-01] MEDS: PANTOPRAZOLE SODIUM 40 MG TAB PO SCH ×2 (08:28→20:52)
[2016-12-01] MEDS: AZITHROMYCIN IV 500 MG in D5W 250 ML IV SCH (08:28)
[2016-12-01] MEDS: oxyCODONE IR 5 MG TAB PO PRN ×2 (08:41→13:39)
--- NOTE | 2016-12-01 12:28 | PDINTPN ---
Soils Technician Progress Note Assessment/Plan: Assessment/plan: 76 M with significant cardiac history admitted 11/29/16 with sudden onset SOB, though initially to be CHF so treated with lasix, CPAP, and nitropaste, but CXR showed clear RUL pneumonia. His BP subsequently dropped and was given cautious fluid replacement (EF10-15%) with improvement in BP. He was also given ceftriaxone/zithromax as well and improved. * CAP- Cultures negative to date as are strep/legionella urinary antigens, but falling wbc and afebrile. * Hypotension- Resolved. More likely iatrogenic then septic shock given fluid dynamics. Agree with resume cardiac meds * Dyspnea 2/2 PNA- improved without intervention today * OK for floor/PCU 12/01/16 12:27 Objective: Vital Signs Temp Pulse Resp BP Pulse Ox 37.0 C 92 24 H 94/67 L 97 12/01/16 11:56 12/01/16 11:56 12/01/16 11:56 12/01/16 11:56 12/01/16 11:56 Microbiology 11/30/16 10:15 - Final Sputum, Expectorated Laboratory Results 12/01/16 05:10 11/30/16 03:50 11/30/16 12/01/16 12/02/16 05:59 05:59 05:59 Intake Total 1489 Output Total 2250 550 Balance -761 -550 PT 36.3 SEC (12.0-15.0) H D 12/01/16 05:10 INR 3.58 (0.83-1.16) H 12/01/16 05:10 Physical Exam - Physical Exam General Appearance: WD/WN, alert, no apparent distress EENT: PERRL/EOMI Neck: supple Respiratory: lungs clear, normal breath sounds, No respiratory distress Cardiac/Chest: normal peripheral pulses, regular rate, rhythm, other (paced), No edema Abdomen: normal bowel sounds, non-tender, soft, No distended Skin: normal color, warm/dry Lymphatic: no adenopathy Extremities: No pedal edema Neuro/Psych: alert, normal mood/affect, oriented x 3, other (occasional confusion) ICD10 Worksheet Patient Problems: Problems Problem Status Onset Acute respiratory failure Acute COPD exacerbation Acute Hypoxemia Acute Pneumonia involving right lung Acute Subtherapeutic anticoagulation Acute Systolic congestive heart failure Acute Troponin level elevated Acute Acute chest pain Acute Alcoholic intoxication Acute CHRONIC DISEASE MANAGEMENTTransitional Care Acute Cardiomyopathy Acute Chest pain Acute Elevated INR Acute Pneumonia Acute Pre-syncope Acute Shortness of breath Acute Systolic CHF, acute on chronic Acute
[2016-12-01] MEDS ORDERED: SPIRONOLACTONE 25 MG TAB PO SCH (12:30)
--- NOTE | 2016-12-01 12:51 | HOSPPROG ---
Hospitalist Progress Note Assessment/Plan: # Septic shock - 2/2 pneumonia - resolved -Blood and sputum CX NGTD TELEMETRY(personally reviewed and interpreted) paced rhythm no acute changes - cont empiric abx - dc IVF as taking PO # CAP - CXR with RUL infiltrate- leukocytosis improved with empiric abx-> WBC 16 -> 9 this am - cont azith and ceftriaxone # BART 2/2 sepsis and hypoperfusion - creatinine 1.2 to 0.9 with fluids - follow # Acute hypoxic respiratory failure - 2/2 CAP and today possibly some volume overload with sepsis fluid resuscitation- oxygen saturations 98% on 2L - cont abx and supportive care - restart lasix 20mg PO today # Chronic systolic HF - with improved hemodynamics we can safely restart home medications including - cont carvedilol and Entresto - resume Lasix today # atrial fibrillation - INR 2-> 3.5 this am - rates controlled - hold warfarin today - Re-check INR in a.m. 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 # prop- warfarin # diet - cardiac # dispo - > 2MN as presented septic with underling severe sytolic HF need close monitoring I have discussed the case with Pulmonary - we will restart Lasix today patient can be changed to PCU status today Subjective: Still feels dyspneic Objective: Vital Signs Temp Pulse Resp BP Pulse Ox 37.0 C 92 24 H 94/67 L 97 12/01/16 11:56 12/01/16 11:56 12/01/16 11:56 12/01/16 11:56 12/01/16 11:56 Microbiology 11/30/16 10:15 - Final Sputum, Expectorated Laboratory Results 12/01/16 05:10 11/30/16 03:50 11/30/16 12/01/16 12/02/16 05:59 05:59 05:59 Intake Total 1489 Output Total 2250 550 Balance -761 -550 PT 36.3 SEC (12.0-15.0) H D 12/01/16 05:10 INR 3.58 (0.83-1.16) H 12/01/16 05:10 - Physical Exam Constitutional: chronically ill appearing Eyes: anicteric sclera Ears, Nose, Mouth, Throat: moist mucous membranes Cardiovascular: regular rate and rhythym, systolic murmur Respiratory: rhonchi, No expiratory wheeze Gastrointestinal: normoactive bowel sounds, soft, non-tender abdomen Genitourinary: no bladder fullness Skin: warm, normal color Musculoskeletal: No asymmetric calves Neurologic: AAOx3 Psychiatric: interacting appropriately, not anxious Lymph, Heme, Immunologic: no cervical LAD ICD10 Worksheet Patient Problems: Problems Problem Status Onset Acute respiratory failure Acute COPD exacerbation Acute Hypoxemia Acute Pneumonia involving right lung Acute Subtherapeutic anticoagulation Acute Systolic congestive heart failure Acute Troponin level elevated Acute Acute chest pain Acute Alcoholic intoxication Acute CHRONIC DISEASE MANAGEMENTTransitional Care Acute Cardiomyopathy Acute Chest pain Acute Elevated INR Acute Pneumonia Acute Pre-syncope Acute Shortness of breath Acute Systolic CHF, acute on chronic Acute
[2016-12-01] MEDS: FUROSEMIDE 20 MG TAB PO SCH (13:39)
[2016-12-01] MEDS ORDERED: WARFARIN SODIUM 5 MG TAB PO SCH (16:00)
[2016-12-01] MEDS: FERROUS SULFATE 325 MG TAB PO SCH (17:19)
[2016-12-01] MEDS: MIRTAZAPINE 15 MG TAB PO SCH (20:52)
[2016-12-01] MEDS: traZODone 50 MG TAB PO SCH (20:52)
[2016-12-01] MEDS: THIAMINE HCL 100 MG TAB PO SCH (20:52)
[2016-12-01] MEDS: FOLIC ACID 1 MG TAB PO SCH (20:52)
[2016-12-01] MEDS: ATORVASTATIN CALCIUM 40 MG TAB PO SCH (20:52)
[2016-12-01] MEDS: MULTIVITAMINS 1 EACH TAB PO SCH (20:52)
[2016-12-01] MEDS: FINASTERIDE 5 MG TAB PO SCH (20:52)
[2016-12-01] MEDS: VITAMIN B COMPLEX 1 EA CAP/TAB PO SCH (20:54)
[2016-12-01] MEDS: QUEtiapine FUMARATE 200 MG TAB PO SCH (20:54)
[2016-12-01] MEDS: TAMSULOSIN HCL 0.4 MG CAP PO SCH (20:54)
[2016-12-01] MEDS: PYRIDOXINE HCL 25 MG TAB PO SCH (20:54)
[2016-12-01] MEDS: OMEGA-3 FATTY ACIDS 1,000 MG CAP PO SCH (20:54)
[2016-12-02] MEDS: ACETAMINOPHEN 325 MG TAB PO PRN ×3 (04:48→17:05)
[2016-12-02 05:29] LABS: HEMATOCRIT 30.9 % (40.0-51.0); HEMOGLOBIN 10.6 g/dL (13.7-17.5); MEAN CELL HEMOGLOBIN 32.7 pg (27.9-34.1); MEAN CELL HEMOGLOBIN CONCENTR. 34.3 g/dL (32.4-36.7); MEAN CELL VOLUME 95.4 fL (81.5-99.8); RED BLOOD CELL COUNT 3.24 10^6/uL (4.40-6.38); RED CELL DISTRIBUTION WIDTH 13.3 % (11.5-15.2)
[2016-12-02 05:39] LABS: INR 3.35 (0.83-1.16); PROTIME(PATIENT) 34.5 SEC (12.0-15.0)
[2016-12-02] MEDS: ACETYLCYSTEINE 20% IH/PO 30 ML VIAL IH SCH ×3 (05:48→17:27)
[2016-12-02] MEDS: ALBUTEROL 3 ML DEYVIAL IH SCH ×3 (05:48→17:28)
[2016-12-02 05:49] LABS: ANION GAP 10 mEq/L (8-16); CARBON DIOXIDE 24 mEq/l (22-31); CHLORIDE 103 mEq/L (97-110); CREATININE 0.9 mg/dL (0.7-1.3); GLOMERULAR FILTRATION RATE > 60; GLUCOSE 100 mg/dL (70-100); POTASSIUM 3.8 mEq/L (3.5-5.2); SODIUM 137 mEq/L (134-144)
[2016-12-02] MEDS ORDERED: SPIRONOLACTONE 25 MG TAB PO SCH (09:00)
[2016-12-02] MEDS: PANTOPRAZOLE SODIUM 40 MG TAB PO SCH ×2 (09:25→20:09)
[2016-12-02] MEDS: AZITHROMYCIN IV 500 MG in D5W 250 ML IV SCH (09:26)
[2016-12-02] MEDS: SACUBITRIL/VALSARTAN 24/26MG 1 EA TAB PO SCH ×2 (09:26→23:35)
[2016-12-02] MEDS: CARVEDILOL 6.25 MG TAB PO SCH ×2 (09:26→17:05)
[2016-12-02] MEDS: FUROSEMIDE 20 MG TAB PO SCH (09:26)
[2016-12-02] MEDS: CLOPIDOGREL BISULFATE 75 MG TAB PO SCH (09:26)
--- NOTE | 2016-12-02 09:57 | PDIAF ---
- Diagnosis Diagnosis: sepsis and pna Code Status: Do Not Resuscitate - Medication Management Discharge Medications: Medications to Continue on Transfer Atorvastatin Calcium [Lipitor 40 mg (*)] 40 mg PO HS 08/31/14 [Last Taken ] Ferrous Sulfate [Ferrous Sulf 325 MG (*)] 325 mg PO DAILY@17 08/31/14 [Last Taken 11/28/16] Folic Acid [Folic Acid 1 MG (*)] 1 mg PO HS 08/31/14 [Last Taken 11/28/16] Multivitamins [Multivitamin (*)] 1 each PO HS 08/31/14 [Last Taken 11/28/16] Spironolactone [Aldactone 25 MG (*)] 25 mg PO DAILY 08/31/14 [Last Taken ] Thiamine HCl 100 mg PO HS 08/31/14 [Last Taken 11/28/16] traZODone [traZODONE 50MG (*)] 50 mg PO HS 08/31/14 [Last Taken 11/28/16] Finasteride [Proscar 5 MG (*)] 5 mg PO HS 10/20/15 [Last Taken 11/28/16] Sharon-3 Fatty Acids [Fish Oil 1000 mg (*)] 1,000 mg PO HS 10/20/15 [Last Taken 11/28/16] Tamsulosin HCl [Flomax 0.4 MG (*)] 0.4 mg PO HS 10/20/15 [Last Taken 11/28/16] Warfarin Sodium [Coumadin 5MG (*)] 5 mg PO SUMOTUWEFR@16 10/20/15 [Last Taken ] Omeprazole [Prilosec 20 mg] 20 mg PO DAILY 08/17/16 [Last Taken 11/29/16] Pyridoxine HCl [Vitamin B-6 25 mg (*)] 25 mg PO HS 08/17/16 [Last Taken 11/28/16 ] Quetiapine Fumarate [Seroquel Xr] 400 mg PO HS 08/17/16 [Last Taken 11/28/16] Vitamin B Complex [B Complex] 1 each PO HS 08/17/16 [Last Taken 11/28/16] Clopidogrel Bisulfate [Plavix (*)] 75 mg PO DAILY #0 tab 08/18/16 [Last Taken ] Mirtazapine [Remeron] 45 mg PO HS 09/10/16 [Last Taken 11/28/16] Warfarin Sodium [Coumadin 5MG (*)] 7.5 mg PO THSA@16 09/10/16 [Last Taken ] Pantoprazole Sodium [Protonix 40mg (*)] 40 mg PO HS 09/20/16 [Last Taken ] Carvedilol [Coreg (*)] 6.25 mg PO BIDMEAL 11/29/16 [Last Taken 11/29/16 08:00] Furosemide [Lasix 20 MG (*)] 20 mg PO DAILY 11/29/16 [Last Taken 11/29/16] Sacubitril/Valsartan 24/26Mg [Entresto 24 mg/26 mg (RX)] 1 tab PO BID 11/29/16 [ Last Taken 11/29/16 08:00] levOFLOXACIN [Levofloxacin] 750 mg PO DAILY #3 tablet 12/02/16 [Last Taken Unknown] Discharge Medications: Refer to the Discharge Home Medication list for PRN reason. - Orders Services needed: Home Care, Registered Nurse, Physical Therapy, Occupational Therapy Home Care Face to Face: I certify that this patient was under my care and that I had the required [id number] encounter meeting the encounter requirements on the discharge day. My findings support the fact that the patient is homebound as defined in CMS Chapter 7 Medicare Benefits Manual 30.1.1, The condition of the patient is such that there exists a normal inability to leave home and consequently, leaving home would require a considerable and taxing effort. Diet Recommendation: cardiac -low fat low salt Diet Texture: Regular Texture Diet - Labs/Radiology PT/INR Date: 12/05/16 (call results to coumadin clinic) - Follow Up Care Current Providers and Referrals: Ceferino Rosen MD [Medical Doctor] - Patient,NotPresent [Unknown] - As per Instructions
[2016-12-02] MEDS ORDERED: NS 250 ML IV ONE ×2 (10:52→23:25)
--- NOTE | 2016-12-02 10:58 | HOSPPROG ---
Hospitalist Progress Note Assessment/Plan: # Hypotension - diuretics restarted this am and pt has developed orthostatic hypotension-and dizziness with PT TELEMETRY(personally reviewed and interpreted) paced rhythm no acute changes - small 250cc NS bolus now - stop spironolactone - pt tolerated lasix alone yesterday - suspect this will be safe to continue tomorrow # CAP - CXR with RUL infiltrate- leukocytosis improved with empiric abx-> WBC 16 -> 8.9 this am - cont azith and ceftriaxone # BART 2/2 sepsis and hypoperfusion - creatinine 1.2 to 0.9 with fluids - follow # Acute hypoxic respiratory failure - 2/2 CAP and today possibly some volume overload with sepsis fluid resuscitation- oxygen saturations 99% on 2L - cont abx and supportive care - cont lasix 20mg PO daily # Chronic systolic HF - with improved hemodynamics we can safely restart home medications including - cont carvedilol and Entresto - resume Lasix today # atrial fibrillation - INR 3.3 this am - rates controlled - restart warfarin today - Re-check INR in a.m. 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 # Septic shock - 2/2 pneumonia - resolved # prop- warfarin # diet - cardiac # dispo - > 2MN as presented septic with underling severe sytolic HF need close monitoring I have discussed the case with RN - we will give small bolus this am and follow in SDU Subjective: fatigued Objective: Vital Signs Temp Pulse Resp BP Pulse Ox 36.8 C 82 17 102/50 L 94 12/02/16 08:00 12/02/16 08:00 12/02/16 08:00 12/02/16 08:00 12/02/16 08:00 Microbiology 11/30/16 10:15 - Final Sputum, Expectorated Laboratory Results 12/02/16 05:20 12/02/16 05:20 12/01/16 12/02/16 12/03/16 05:59 05:59 05:59 Intake Total 368 Output Total 550 850 Balance -550 -482 PT 34.5 SEC (12.0-15.0) H 12/02/16 05:20 INR 3.35 (0.83-1.16) H 12/02/16 05:20 - Physical Exam Constitutional: chronically ill appearing Eyes: anicteric sclera Ears, Nose, Mouth, Throat: moist mucous membranes Cardiovascular: regular rate and rhythym, systolic murmur Respiratory: rhonchi Gastrointestinal: normoactive bowel sounds Genitourinary: no bladder fullness Skin: warm, normal color Musculoskeletal: No asymmetric calves Neurologic: AAOx3 Psychiatric: interacting appropriately Lymph, Heme, Immunologic: no cervical LAD ICD10 Worksheet Patient Problems: Problems Problem Status Onset Acute respiratory failure Acute COPD exacerbation Acute Hypoxemia Acute Pneumonia involving right lung Acute Subtherapeutic anticoagulation Acute Systolic congestive heart failure Acute Troponin level elevated Acute Acute chest pain Acute Alcoholic intoxication Acute CHRONIC DISEASE MANAGEMENTTransitional Care Acute Cardiomyopathy Acute Chest pain Acute Elevated INR Acute Pneumonia Acute Pre-syncope Acute Shortness of breath Acute Systolic CHF, acute on chronic Acute
[2016-12-02] MEDS: oxyCODONE IR 5 MG TAB PO PRN ×2 (12:30→20:14)
[2016-12-02] MEDS: WARFARIN SODIUM 5 MG TAB PO SCH (15:55)
[2016-12-02] MEDS: FERROUS SULFATE 325 MG TAB PO SCH (17:06)
[2016-12-02] MEDS: FOLIC ACID 1 MG TAB PO SCH (20:08)
[2016-12-02] MEDS: QUEtiapine FUMARATE 200 MG TAB PO SCH (20:08)
[2016-12-02] MEDS: TAMSULOSIN HCL 0.4 MG CAP PO SCH (20:08)
[2016-12-02] MEDS: MULTIVITAMINS 1 EACH TAB PO SCH (20:08)
[2016-12-02] MEDS: FINASTERIDE 5 MG TAB PO SCH (20:09)
[2016-12-02] MEDS: VITAMIN B COMPLEX 1 EA CAP/TAB PO SCH (20:09)
[2016-12-02] MEDS: traZODone 50 MG TAB PO SCH (20:09)
[2016-12-02] MEDS: MIRTAZAPINE 15 MG TAB PO SCH (20:09)
[2016-12-02] MEDS: THIAMINE HCL 100 MG TAB PO SCH (20:09)
[2016-12-02] MEDS: OMEGA-3 FATTY ACIDS 1,000 MG CAP PO SCH (20:10)
[2016-12-02] MEDS: ATORVASTATIN CALCIUM 40 MG TAB PO SCH (20:10)
[2016-12-02] MEDS: PYRIDOXINE HCL 25 MG TAB PO SCH (21:47)
[2016-12-02] MEDS: ZOLPIDEM TARTRATE 5 MG TAB PO PRN (21:50)
[2016-12-03] MEDS: ALBUTEROL 3 ML DEYVIAL IH SCH ×4 (00:07→19:47)
[2016-12-03] MEDS: ACETYLCYSTEINE 20% IH/PO 30 ML VIAL IH SCH ×4 (00:07→19:48)
[2016-12-03] MEDS: ALTEPLASE 2 MG VIAL IVP PRN (05:27)
[2016-12-03 05:55] LABS: INR 3.27 (0.83-1.16); PROTIME(PATIENT) 33.8 SEC (12.0-15.0)
[2016-12-03 06:00] LABS: ANION GAP 8 mEq/L (8-16); CALCIUM 8.8 mg/dL (8.5-10.4); CARBON DIOXIDE 26 mEq/l (22-31); CHLORIDE 106 mEq/L (97-110); CREATININE 0.8 mg/dL (0.7-1.3); GLOMERULAR FILTRATION RATE > 60; GLUCOSE 95 mg/dL (70-100); POTASSIUM 3.9 mEq/L (3.5-5.2); SODIUM 140 mEq/L (134-144)
[2016-12-03] MEDS: oxyCODONE IR 5 MG TAB PO PRN ×4 (08:30→21:35)
[2016-12-03] MEDS: CARVEDILOL 6.25 MG TAB PO SCH ×2 (08:31→17:31)
[2016-12-03] MEDS: FUROSEMIDE 20 MG TAB PO SCH (08:31)
[2016-12-03] MEDS: PANTOPRAZOLE SODIUM 40 MG TAB PO SCH ×2 (08:31→21:28)
[2016-12-03] MEDS: CLOPIDOGREL BISULFATE 75 MG TAB PO SCH (08:31)
[2016-12-03] MEDS: AZITHROMYCIN IV 500 MG in D5W 250 ML IV SCH (10:01)
[2016-12-03] MEDS: SACUBITRIL/VALSARTAN 24/26MG 1 EA TAB PO SCH ×2 (10:08→21:36)
--- NOTE | 2016-12-03 10:14 | HOSPPROG ---
Hospitalist Progress Note Assessment/Plan: # septic shock - source pna, resolved # pseudomonal pneumonia - start cefepime today - cont azith - can dc soon # severe chronic CHF - EF 15% - vol status stable - cont entresto, coreg, lasix (all home doses) # CAD s/p multiple PCI - plavix, warf, coreg, statin # a-fib/ppm - INR elevated - cont coreg, hold warfarin # bioprosthetic AVR, MVR # CVA - plavix, warfarin # pre-renal BART - resolved # acute hypoxic resp failure - follow closely; patient is tenuous overall Subjective: still feels poorly, SOB, cough non-productive Objective: Vital Signs Temp Pulse Resp BP Pulse Ox 36.7 C 74 10 L 110/81 H 94 12/03/16 07:52 12/03/16 07:52 12/03/16 07:52 12/03/16 07:52 12/03/16 07:52 Microbiology 11/30/16 10:15 - Final Sputum, Expectorated Laboratory Results 12/02/16 05:20 12/03/16 05:30 12/02/16 12/03/16 12/04/16 05:59 05:59 05:59 Intake Total 368 700 Output Total 850 830 Balance -482 -130 PT 33.8 SEC (12.0-15.0) H 12/03/16 05:30 INR 3.27 (0.83-1.16) H 12/03/16 05:30 chart reviewed CXR personally reviewed - Physical Exam Constitutional: chronically ill appearing Cardiovascular: regular rate and rhythym, no murmur, rub, or gallop Respiratory: inspiratory crackles (RUL), respiratory distress (mod), No reduced air movement, No bronchial breath sounds, No aegophony Gastrointestinal: normoactive bowel sounds, soft, non-tender abdomen, no palpable masses ICD10 Worksheet Patient Problems: Problems Problem Status Onset Systolic CHF, acute on chronic Acute Chest pain Acute CHRONIC DISEASE MANAGEMENTTransitional Care Acute Hypoxemia Acute Pre-syncope Acute Cardiomyopathy Acute Alcoholic intoxication Acute Troponin level elevated Acute Elevated INR Acute Shortness of breath Acute Pneumonia Acute Acute chest pain Acute Acute respiratory failure Acute Pneumonia involving right lung Acute Systolic congestive heart failure Acute COPD exacerbation Acute Subtherapeutic anticoagulation Acute
[2016-12-03] MEDS: CEFEPIME HCL 2 GM in D5W 100 ML IV SCH ×2 (15:11→21:30)
[2016-12-03] MEDS: FERROUS SULFATE 325 MG TAB PO SCH (17:31)
[2016-12-03] MEDS: OMEGA-3 FATTY ACIDS 1,000 MG CAP PO SCH (21:28)
[2016-12-03] MEDS: ATORVASTATIN CALCIUM 40 MG TAB PO SCH (21:28)
[2016-12-03] MEDS: traZODone 50 MG TAB PO SCH (21:28)
[2016-12-03] MEDS: VITAMIN B COMPLEX 1 EA CAP/TAB PO SCH (21:28)
[2016-12-03] MEDS: MIRTAZAPINE 15 MG TAB PO SCH (21:28)
[2016-12-03] MEDS: FOLIC ACID 1 MG TAB PO SCH (21:29)
[2016-12-03] MEDS: QUEtiapine FUMARATE 200 MG TAB PO SCH (21:29)
[2016-12-03] MEDS: MULTIVITAMINS 1 EACH TAB PO SCH (21:29)
[2016-12-03] MEDS: THIAMINE HCL 100 MG TAB PO SCH (21:29)
[2016-12-03] MEDS: FINASTERIDE 5 MG TAB PO SCH (21:30)
[2016-12-03] MEDS: PYRIDOXINE HCL 25 MG TAB PO SCH (21:30)
[2016-12-03] MEDS: TAMSULOSIN HCL 0.4 MG CAP PO SCH (21:30)
[2016-12-03] MEDS: clonazePAM 0.5 MG TAB PO PRN (21:30)
[2016-12-04] MEDS: ALBUTEROL 3 ML DEYVIAL IH SCH ×4 (00:01→16:56)
[2016-12-04] MEDS: ACETYLCYSTEINE 20% IH/PO 30 ML VIAL IH SCH ×4 (05:08→16:57)
[2016-12-04 05:30] LABS: % IMMATURE GRANULYOCYTES 0.5 % (0.0-1.1); ABSOLUTE IMMATURE GRANULOCYTES 0.03 10^3/uL (0.00-0.10); ADD DIFF? NO; ADD MORPH? NO; ADD SCAN? NO; ATYPICAL LYMPHOCYTE FLAG 0 (0-99); FRAGMENT RBC FLAG 0 (0-99); HEMATOCRIT 28.6 % (40.0-51.0); HEMOGLOBIN 9.8 g/dL (13.7-17.5); LEFT SHIFT FLG 10 (0-99); LIPEMIA HEMOLYSIS FLAG 90 (0-99); MEAN CELL HEMOGLOBIN 32.6 pg (27.9-34.1); MEAN CELL HEMOGLOBIN CONCENTR. 34.3 g/dL (32.4-36.7); MEAN PLATELET VOLUME 9.5 fL (8.7-11.7); PLATELET CLUMPS FLAG 0 (0-99); PLATELET COUNT 136 10^3/uL (150-400); RED BLOOD CELL COUNT 3.01 10^6/uL (4.40-6.38); RED CELL DISTRIBUTION WIDTH 13.3 % (11.5-15.2)
[2016-12-04 05:39] LABS: INR 2.65 (0.83-1.16); PROTIME(PATIENT) 28.6 SEC (12.0-15.0)
[2016-12-04 05:56] LABS: ANION GAP 12 mEq/L (8-16); CALCIUM 8.8 mg/dL (8.5-10.4); CARBON DIOXIDE 24 mEq/l (22-31); CHLORIDE 105 mEq/L (97-110); CREATININE 0.8 mg/dL (0.7-1.3); GLOMERULAR FILTRATION RATE > 60; GLUCOSE 90 mg/dL (70-100); POTASSIUM 3.7 mEq/L (3.5-5.2); SODIUM 141 mEq/L (134-144)
[2016-12-04] MEDS: CEFEPIME HCL 2 GM in D5W 100 ML IV SCH ×3 (07:22→21:01)
[2016-12-04] MEDS: CARVEDILOL 6.25 MG TAB PO SCH ×2 (07:51→17:50)
[2016-12-04] MEDS: CLOPIDOGREL BISULFATE 75 MG TAB PO SCH (07:51)
[2016-12-04] MEDS: SACUBITRIL/VALSARTAN 24/26MG 1 EA TAB PO SCH ×2 (07:51→20:40)
[2016-12-04] MEDS: FUROSEMIDE 20 MG TAB PO SCH (07:51)
[2016-12-04] MEDS: PANTOPRAZOLE SODIUM 40 MG TAB PO SCH ×2 (07:51→20:41)
[2016-12-04] MEDS: clonazePAM 0.5 MG TAB PO PRN ×2 (07:58→20:40)
[2016-12-04] MEDS: AZITHROMYCIN IV 500 MG in D5W 250 ML IV SCH (08:02)
--- NOTE | 2016-12-04 10:34 | HOSPPROG ---
Hospitalist Progress Note Assessment/Plan: # septic shock - source pna, resolved # pneumonia, psa + other GNR, suspect d/t aspiration - micro working on sensitivities and ID of GNR - cone cefepime, d/z azith today - check swallow study # severe chronic CHF - EF 15% - slightly vol overloaded - cont entresto, coreg, lasix (increase lasix) # CAD s/p multiple PCI - plavix, warf, coreg, statin # a-fib/ppm - INR 2.5 - restart warfarin today # bioprosthetic AVR, MVR # CVA - plavix, warfarin # pre-renal BART - resolved # acute hypoxic resp failure - follow closely; patient is tenuous/high risk overall Subjective: SOB feels better today Objective: Vital Signs Temp Pulse Resp BP Pulse Ox 36.8 C 80 20 121/63 H 85 L 12/04/16 07:30 12/04/16 07:30 12/04/16 07:30 12/04/16 07:53 12/04/16 07:50 Microbiology 11/30/16 10:15 - Final Sputum, Expectorated Laboratory Results 12/04/16 05:20 12/04/16 05:20 12/03/16 12/04/16 12/05/16 05:59 05:59 05:59 Intake Total 700 995 Output Total 830 1675 600 Balance -130 -680 -600 PT 28.6 SEC (12.0-15.0) H 12/04/16 05:20 INR 2.65 (0.83-1.16) H 12/04/16 05:20 - Physical Exam Constitutional: no apparent distress, appears nourished Cardiovascular: regular rate and rhythym, systolic murmur, No irregularly irregular, No diastolic murmur Respiratory: inspiratory crackles (bi-basilar), respiratory distress (mild), No reduced air movement, No expiratory wheeze, No bronchial breath sounds Gastrointestinal: normoactive bowel sounds, soft, non-tender abdomen, no palpable masses ICD10 Worksheet Patient Problems: Problems Problem Status Onset Systolic CHF, acute on chronic Acute Chest pain Acute CHRONIC DISEASE MANAGEMENTTransitional Care Acute Hypoxemia Acute Pre-syncope Acute Cardiomyopathy Acute Alcoholic intoxication Acute Troponin level elevated Acute Elevated INR Acute Shortness of breath Acute Pneumonia Acute Acute chest pain Acute Acute respiratory failure Acute Pneumonia involving right lung Acute Systolic congestive heart failure Acute COPD exacerbation Acute Subtherapeutic anticoagulation Acute
[2016-12-04] MEDS: POTASSIUM CL 20 MEQ TAB PO SCH (11:04)
[2016-12-04] MEDS: oxyCODONE IR 5 MG TAB PO PRN ×3 (11:17→20:39)
[2016-12-04] MEDS: FUROSEMIDE 20 MG/2 ML VIAL IVP SCH (14:27)
[2016-12-04] MEDS: WARFARIN SODIUM 5 MG TAB PO SCH (15:20)
[2016-12-04] MEDS: FERROUS SULFATE 325 MG TAB PO SCH (17:50)
[2016-12-04] MEDS: ATORVASTATIN CALCIUM 40 MG TAB PO SCH (20:39)
[2016-12-04] MEDS: OMEGA-3 FATTY ACIDS 1,000 MG CAP PO SCH (20:39)
[2016-12-04] MEDS: MULTIVITAMINS 1 EACH TAB PO SCH (20:39)
[2016-12-04] MEDS: QUEtiapine FUMARATE 200 MG TAB PO SCH (20:39)
[2016-12-04] MEDS: FINASTERIDE 5 MG TAB PO SCH (20:40)
[2016-12-04] MEDS: THIAMINE HCL 100 MG TAB PO SCH (20:40)
[2016-12-04] MEDS: traZODone 50 MG TAB PO SCH (20:40)
[2016-12-04] MEDS: TAMSULOSIN HCL 0.4 MG CAP PO SCH (20:40)
[2016-12-04] MEDS: PYRIDOXINE HCL 25 MG TAB PO SCH (20:40)
[2016-12-04] MEDS: VITAMIN B COMPLEX 1 EA CAP/TAB PO SCH (20:40)
[2016-12-04] MEDS: FOLIC ACID 1 MG TAB PO SCH (20:40)
[2016-12-04] MEDS: MIRTAZAPINE 15 MG TAB PO SCH (20:41)
[2016-12-05] MEDS: ALBUTEROL 3 ML DEYVIAL IH SCH ×4 (00:32→17:28)
[2016-12-05] MEDS: ACETYLCYSTEINE 20% IH/PO 30 ML VIAL IH SCH ×4 (00:32→17:28)
[2016-12-05] MEDS: CEFEPIME HCL 2 GM in D5W 100 ML IV SCH ×3 (05:03→21:29)
[2016-12-05 05:37] LABS: ANION GAP 9 mEq/L (8-16); CALCIUM 8.5 mg/dL (8.5-10.4); CARBON DIOXIDE 28 mEq/l (22-31); CHLORIDE 102 mEq/L (97-110); CREATININE 0.9 mg/dL (0.7-1.3); GLOMERULAR FILTRATION RATE > 60; GLUCOSE 86 mg/dL (70-100); POTASSIUM 3.6 mEq/L (3.5-5.2); SODIUM 139 mEq/L (134-144)
--- NOTE | 2016-12-05 09:29 | HOSPPROG ---
Hospitalist Progress Note Assessment/Plan: # septic shock - source pna, resolved # pneumonia, psa + other GNR, possibly d/t aspiration - micro working on sensitivities of psa and ID of GNR - cone cefepime D#3 (D#7 of abx - initially treated with rocephin/azith) - check swallow study today - check CXR tomorrow # severe chronic CHF - EF 15% - slightly vol overloaded - cont entresto, coreg, lasix (increase lasix) - short run of NSVT - has AICD in place, replete lytes carefully # acute hypoxic resp failure d/t pna and vol overload - follow closely; patient is tenuous/high risk overall - he would like a nebulizer on discharge # CAD s/p multiple PCI - plavix, warf, coreg, statin # a-fib/ppm - INR 2.5 - restart warfarin today, recheck inr # bioprosthetic AVR, MVR # CVA - plavix, warfarin # pre-renal BART - resolved # dispo - anticipate a few more days as inpatient Subjective: breathing feels slightly better today Objective: Vital Signs Temp Pulse Resp BP Pulse Ox 36.3 C 93 20 119/63 89 L 12/05/16 08:00 12/05/16 08:00 12/05/16 08:00 12/05/16 08:00 12/05/16 08:00 Microbiology 11/30/16 10:15 - Final Sputum, Expectorated Laboratory Results 12/04/16 05:20 12/05/16 05:00 12/04/16 12/05/16 12/06/16 05:59 05:59 05:59 Intake Total 995 1145 Output Total 1675 2550 Balance -680 -1405 PT 28.6 SEC (12.0-15.0) H 12/04/16 05:20 INR 2.65 (0.83-1.16) H 12/04/16 05:20 tele reviewed - short run of NSVT - Physical Exam Constitutional: no apparent distress, appears nourished Cardiovascular: regular rate and rhythym, no murmur, rub, or gallop Respiratory: inspiratory crackles (bilat bases), respiratory distress (mild), No expiratory wheeze, No bronchial breath sounds, No aegophony Gastrointestinal: normoactive bowel sounds, soft, non-tender abdomen, no palpable masses ICD10 Worksheet Patient Problems: Problems Problem Status Onset Systolic CHF, acute on chronic Acute Chest pain Acute CHRONIC DISEASE MANAGEMENTTransitional Care Acute Hypoxemia Acute Pre-syncope Acute Cardiomyopathy Acute Alcoholic intoxication Acute Troponin level elevated Acute Elevated INR Acute Shortness of breath Acute Pneumonia Acute Acute chest pain Acute Acute respiratory failure Acute Pneumonia involving right lung Acute Systolic congestive heart failure Acute COPD exacerbation Acute Subtherapeutic anticoagulation Acute
[2016-12-05] MEDS ORDERED: PROTOCOL MAGNESIUM 1 DOSE IV PRN (09:32)
[2016-12-05] MEDS ORDERED: PROTOCOL POTASSIUM 1 DOSE MISC PRN (09:32)
[2016-12-05] MEDS ORDERED: POTASSIUM CL 10 MEQ TAB PO ONE (10:40)
[2016-12-05] MEDS: CLOPIDOGREL BISULFATE 75 MG TAB PO SCH (10:42)
[2016-12-05] MEDS: SACUBITRIL/VALSARTAN 24/26MG 1 EA TAB PO SCH ×2 (10:42→21:27)
[2016-12-05] MEDS: FUROSEMIDE 20 MG/2 ML VIAL IVP SCH ×2 (10:43→16:02)
[2016-12-05] MEDS: CARVEDILOL 6.25 MG TAB PO SCH ×2 (10:43→19:09)
[2016-12-05] MEDS: PANTOPRAZOLE SODIUM 40 MG TAB PO SCH ×2 (10:43→21:28)
[2016-12-05] MEDS: POTASSIUM CL 20 MEQ TAB PO SCH (11:30)
[2016-12-05] MEDS: clonazePAM 0.5 MG TAB PO PRN ×2 (11:38→21:28)
[2016-12-05] MEDS: oxyCODONE IR 5 MG TAB PO PRN ×2 (11:39→21:28)
[2016-12-05] MEDS: WARFARIN SODIUM 5 MG TAB PO SCH (15:57)
[2016-12-05] MEDS ORDERED: MAGNESIUM SULF 1 GM/DEXTROSE 100 ML IV ONE (17:46)
[2016-12-05] MEDS ORDERED: MAGNESIUM SULF 1 GM/DEXTROSE 100 ML BAG IV ONE (17:50)
[2016-12-05] MEDS: FERROUS SULFATE 325 MG TAB PO SCH (18:02)
[2016-12-05] MEDS ORDERED: CARVEDILOL 6.25 MG TAB PO SCH (18:28)
[2016-12-05] MEDS: ALTEPLASE 2 MG VIAL IVP PRN (18:36)
[2016-12-05 18:42] LABS: POTASSIUM 4.3 mEq/L (3.5-5.2)
[2016-12-05] MEDS: CARVEDILOL 3.125 MG TAB PO SCH (19:08)
[2016-12-05] MEDS: QUEtiapine FUMARATE 200 MG TAB PO SCH (21:28)
[2016-12-05] MEDS: VITAMIN B COMPLEX 1 EA CAP/TAB PO SCH (21:28)
[2016-12-05] MEDS: FOLIC ACID 1 MG TAB PO SCH (21:28)
[2016-12-05] MEDS: PYRIDOXINE HCL 25 MG TAB PO SCH (21:28)
[2016-12-05] MEDS: OMEGA-3 FATTY ACIDS 1,000 MG CAP PO SCH (21:28)
[2016-12-05] MEDS: FINASTERIDE 5 MG TAB PO SCH (21:28)
[2016-12-05] MEDS: traZODone 50 MG TAB PO SCH (21:28)
[2016-12-05] MEDS: TAMSULOSIN HCL 0.4 MG CAP PO SCH (21:28)
[2016-12-05] MEDS: ATORVASTATIN CALCIUM 40 MG TAB PO SCH (21:28)
[2016-12-05] MEDS: MULTIVITAMINS 1 EACH TAB PO SCH (21:28)
[2016-12-05] MEDS: THIAMINE HCL 100 MG TAB PO SCH (21:28)
[2016-12-05] MEDS: MIRTAZAPINE 15 MG TAB PO SCH (21:29)
[2016-12-06] MEDS: ALBUTEROL 3 ML DEYVIAL IH SCH ×4 (00:03→16:56)
[2016-12-06] MEDS: ACETYLCYSTEINE 20% IH/PO 30 ML VIAL IH SCH ×4 (00:03→16:56)
[2016-12-06] MEDS: CEFEPIME HCL 2 GM in D5W 100 ML IV SCH ×3 (05:31→21:49)
[2016-12-06 06:09] LABS: ANION GAP 9 mEq/L (8-16); CALCIUM 8.8 mg/dL (8.5-10.4); CARBON DIOXIDE 29 mEq/l (22-31); CHLORIDE 102 mEq/L (97-110); CREATININE 0.9 mg/dL (0.7-1.3); GLOMERULAR FILTRATION RATE > 60; GLUCOSE 90 mg/dL (70-100); MAGNESIUM 2.3 mg/dL (1.6-2.3); SODIUM 140 mEq/L (134-144)
[2016-12-06 06:21] LABS: INR 3.09 (0.83-1.16); PROTIME(PATIENT) 32.3 SEC (12.0-15.0)
[2016-12-06] MEDS: FUROSEMIDE 20 MG/2 ML VIAL IVP SCH ×2 (07:57→16:23)
[2016-12-06] MEDS: SACUBITRIL/VALSARTAN 24/26MG 1 EA TAB PO SCH ×2 (07:58→09:06)
[2016-12-06] MEDS: CLOPIDOGREL BISULFATE 75 MG TAB PO SCH (08:00)
[2016-12-06] MEDS: oxyCODONE IR 5 MG TAB PO PRN ×2 (08:02→12:11)
[2016-12-06] MEDS: PANTOPRAZOLE SODIUM 40 MG TAB PO SCH ×2 (08:03→21:50)
[2016-12-06] MEDS: CARVEDILOL 3.125 MG TAB PO SCH ×2 (09:02→17:42)
[2016-12-06] MEDS: clonazePAM 0.5 MG TAB PO PRN ×2 (10:15→18:13)
--- NOTE | 2016-12-06 11:28 | HOSPPROG ---
Hospitalist Progress Note Assessment/Plan: # septic shock - source pna, sepsis physiology resolved # pneumonia - No fevers, BCx's neg. wbc's normalized. Sputum Cx growing GNRs, argenis, pseudomonas, possibly d/t aspiration - awaiting sensitivities. Repeat CXR today unchanged. - cont cefepime D#09/02 - initially treated with rocephin/azith # dysphagia - VFSS showed mild-mod dysphagia - speech following - nectar thick liquids # severe chronic CHF - EF 15%, BP's 80's/50's this am - remains slightly vol overloaded - cont coreg, increased dose of lasix, as tolerated - stopping entresto and return to low dose lisinopril as tolerated due to hypotension - short run of NSVT - has AICD in place, replete lytes carefully, K>4, Mg>2 # acute hypoxic resp failure d/t pna and vol overload - follow closely; patient is tenuous/high risk overall - he would like a nebulizer on discharge, vs inhaler, discussed # CAD s/p multiple PCI - plavix, warf, coreg, statin # a-fib/ppm - rate controlled on BB. INR therapeutic on coumadin, pharmacy to dose # bioprosthetic AVR, MVR # CVA - plavix, warfarin # pre-renal BART - resolved # dispo - cont inpt Subjective: Pt feels better. Upset about nectar thick liquid diet, hard time understanding the aspiration risk. This is a significant QOL issue for him. Wants his coffee. No fevers. Coughing still, but a bit improved. Denies CP, still some SOB> Objective: Vital Signs Temp Pulse Resp BP Pulse Ox 36.1 C 70 18 84/50 L 97 12/06/16 08:00 12/06/16 09:02 12/06/16 08:00 12/06/16 09:06 12/06/16 08:00 Microbiology 11/30/16 10:15 - Final Sputum, Expectorated Laboratory Results 12/04/16 05:20 12/06/16 05:30 12/05/16 12/06/16 12/07/16 05:59 05:59 05:59 Intake Total 1145 1640 Output Total 2550 700 300 Balance -1405 940 -300 PT 32.3 SEC (12.0-15.0) H 12/06/16 05:30 INR 3.09 (0.83-1.16) H 12/06/16 05:30 - Physical Exam Constitutional: no apparent distress Eyes: PERRL Ears, Nose, Mouth, Throat: moist mucous membranes Cardiovascular: regular rate and rhythym Respiratory: no respiratory distress, inspiratory crackles Gastrointestinal: normoactive bowel sounds, soft, non-tender abdomen Skin: warm, no fluctuance Musculoskeletal: generalized weakness Neurologic: AAOx3 Psychiatric: interacting appropriately ICD10 Worksheet Patient Problems: Problems Problem Status Onset Acute respiratory failure Acute COPD exacerbation Acute Hypoxemia Acute Pneumonia involving right lung Acute Subtherapeutic anticoagulation Acute Systolic congestive heart failure Acute Troponin level elevated Acute Acute chest pain Acute Alcoholic intoxication Acute CHRONIC DISEASE MANAGEMENTTransitional Care Acute Cardiomyopathy Acute Chest pain Acute Elevated INR Acute Pneumonia Acute Pre-syncope Acute Shortness of breath Acute Systolic CHF, acute on chronic Acute
[2016-12-06] MEDS: WARFARIN SODIUM 5 MG TAB PO SCH (16:25)
[2016-12-06] MEDS: FERROUS SULFATE 325 MG TAB PO SCH (16:25)
[2016-12-06 18:27] LABS: POTASSIUM 3.9 mEq/L (3.5-5.2)
[2016-12-06] MEDS ORDERED: POTASSIUM CL 10 MEQ TAB PO ONE (21:46)
[2016-12-06] MEDS: OMEGA-3 FATTY ACIDS 1,000 MG CAP PO SCH (21:47)
[2016-12-06] MEDS: MULTIVITAMINS 1 EACH TAB PO SCH (21:47)
[2016-12-06] MEDS: FOLIC ACID 1 MG TAB PO SCH (21:47)
[2016-12-06] MEDS: PYRIDOXINE HCL 25 MG TAB PO SCH (21:48)
[2016-12-06] MEDS: THIAMINE HCL 100 MG TAB PO SCH (21:48)
[2016-12-06] MEDS: VITAMIN B COMPLEX 1 EA CAP/TAB PO SCH (21:48)
[2016-12-06] MEDS: TAMSULOSIN HCL 0.4 MG CAP PO SCH (21:50)
[2016-12-06] MEDS: QUEtiapine FUMARATE 200 MG TAB PO SCH (21:50)
[2016-12-06] MEDS: FINASTERIDE 5 MG TAB PO SCH (21:51)
[2016-12-06] MEDS: MIRTAZAPINE 15 MG TAB PO SCH (21:51)
[2016-12-06] MEDS: ATORVASTATIN CALCIUM 40 MG TAB PO SCH (21:51)
[2016-12-06] MEDS: traZODone 50 MG TAB PO SCH (21:51)
[2016-12-06] MEDS: ZOLPIDEM TARTRATE 5 MG TAB PO PRN (22:00)
[2016-12-07] MEDS: ALBUTEROL 3 ML DEYVIAL IH SCH ×5 (00:23→21:20)
[2016-12-07] MEDS: ACETYLCYSTEINE 20% IH/PO 30 ML VIAL IH SCH ×5 (00:23→21:20)
[2016-12-07] MEDS: CEFEPIME HCL 2 GM in D5W 100 ML IV SCH ×3 (05:02→22:55)
[2016-12-07 05:20] LABS: INR 3.38 (0.83-1.16); PROTIME(PATIENT) 34.7 SEC (12.0-15.0)
[2016-12-07 06:17] LABS: ANION GAP 8 mEq/L (8-16); CALCIUM 9.1 mg/dL (8.5-10.4); CARBON DIOXIDE 28 mEq/l (22-31); CHLORIDE 103 mEq/L (97-110); CREATININE 0.9 mg/dL (0.7-1.3); GLOMERULAR FILTRATION RATE > 60; GLUCOSE 87 mg/dL (70-100); MAGNESIUM 2.3 mg/dL (1.6-2.3); POTASSIUM 4.1 mEq/L (3.5-5.2); SODIUM 139 mEq/L (134-144)
[2016-12-07] MEDS: CLOPIDOGREL BISULFATE 75 MG TAB PO SCH (08:54)
[2016-12-07] MEDS: PANTOPRAZOLE SODIUM 40 MG TAB PO SCH ×2 (08:54→22:48)
[2016-12-07] MEDS: clonazePAM 0.5 MG TAB PO PRN (08:54)
[2016-12-07] MEDS: CARVEDILOL 3.125 MG TAB PO SCH ×2 (08:55→17:14)
[2016-12-07] MEDS ORDERED: LISINOPRIL 2.5 MG TAB PO SCH (09:00)
--- NOTE | 2016-12-07 11:15 | HOSPPROG ---
Hospitalist Progress Note Assessment/Plan: # septic shock - source pna, sepsis physiology resolved # pneumonia - No fevers, BCx's neg. wbc's normalized. Sputum Cx growing GNRs, argenis, pseudomonas, possibly d/t aspiration - awaiting sensitivities (sent to [place] due to insufficient growth in house). Repeat CXR yest personally reviewed and interpreted, unchanged. - cont cefepime D#10/02 - initially treated with rocephin/azith # dysphagia - VFSS showed mild-mod dysphagia - speech following - nectar thick liquids, though pt is distraught over this recommendation # severe chronic CHF - EF 15%, BP improved today, appears more euvolemic - cont coreg, resume home dose of lasix - stopped entresto due to hypotension, discussed this with cardiology and rec is to hold off on resuming rashad for at least 2 days - short run of NSVT - has AICD in place, replete lytes carefully, K>4, Mg>2 # acute hypoxic resp failure d/t pna, aspiration and vol overload - follow closely; patient is tenuous/high risk overall - he would like a nebulizer on discharge, vs inhaler, discussed # CAD s/p multiple PCI - plavix, warf, coreg, statin # a-fib/ppm - rate controlled on BB. INR therapeutic on coumadin, pharmacy to dose # bioprosthetic AVR, MVR # CVA - plavix, warfarin # pre-renal BART - resolved # dispo - cont inpt. Pt very depressed and anxious over quality of life issues , not being able to drink coffee. Interested in palliative care consult to discuss QOL and risk/benefit of his decisions, coping with his chronic illness in general, as well as goals of care. Subjective: Pt is tearful, anxious, very distraught over nectar thick liquid diet and wants to drink coffee. He is tired of all the medical interventions. No CP or changes in baseline SOB. No fevers. Objective: Vital Signs Temp Pulse Resp BP Pulse Ox 36.4 C 79 21 H 120/76 97 12/07/16 08:10 12/07/16 08:10 12/07/16 08:10 12/07/16 08:10 12/07/16 08:10 Microbiology 11/30/16 10:15 - Final Sputum, Expectorated Laboratory Results 12/04/16 05:20 07/12/17 05:00 12/06/16 12/07/16 12/08/16 05:59 05:59 05:59 Intake Total 1640 420 Output Total 700 7205 Balance 940 -1535 PT 34.7 SEC (12.0-15.0) H 12/07/16 05:00 INR 3.38 (0.83-1.16) H 12/07/16 05:00 - Physical Exam Constitutional: chronically ill appearing Eyes: PERRL Ears, Nose, Mouth, Throat: moist mucous membranes Cardiovascular: regular rate and rhythym Respiratory: no respiratory distress, reduced air movement Gastrointestinal: normoactive bowel sounds, soft, non-tender abdomen Skin: warm Neurologic: AAOx3 Psychiatric: interacting appropriately, anxious, depressed ICD10 Worksheet Patient Problems: Problems Problem Status Onset Acute respiratory failure Acute COPD exacerbation Acute Hypoxemia Acute Pneumonia involving right lung Acute Subtherapeutic anticoagulation Acute Systolic congestive heart failure Acute Troponin level elevated Acute Acute chest pain Acute Alcoholic intoxication Acute CHRONIC DISEASE MANAGEMENTTransitional Care Acute Cardiomyopathy Acute Chest pain Acute Elevated INR Acute Pneumonia Acute Pre-syncope Acute Shortness of breath Acute Systolic CHF, acute on chronic Acute
[2016-12-07] MEDS: FUROSEMIDE 20 MG TAB PO SCH (12:58)
[2016-12-07] MEDS: oxyCODONE IR 5 MG TAB PO PRN ×2 (12:58→17:14)
[2016-12-07] MEDS: FERROUS SULFATE 325 MG TAB PO SCH (15:49)
[2016-12-07] MEDS: WARFARIN SODIUM 5 MG TAB PO SCH (15:49)
[2016-12-07 19:36] LABS: POTASSIUM 3.9 mEq/L (3.5-5.2)
[2016-12-07] MEDS ORDERED: POTASSIUM CL 10 MEQ TAB PO ONE ×2 (19:54→22:45)
[2016-12-07] MEDS: OMEGA-3 FATTY ACIDS 1,000 MG CAP PO SCH (22:46)
[2016-12-07] MEDS: TAMSULOSIN HCL 0.4 MG CAP PO SCH (22:47)
[2016-12-07] MEDS: ATORVASTATIN CALCIUM 40 MG TAB PO SCH (22:47)
[2016-12-07] MEDS: MIRTAZAPINE 15 MG TAB PO SCH (22:48)
[2016-12-07] MEDS: traZODone 50 MG TAB PO SCH (22:48)
[2016-12-07] MEDS: QUEtiapine FUMARATE 200 MG TAB PO SCH (22:49)
[2016-12-07] MEDS: FINASTERIDE 5 MG TAB PO SCH (22:49)
[2016-12-07] MEDS: VITAMIN B COMPLEX 1 EA CAP/TAB PO SCH (22:51)
[2016-12-07] MEDS: FOLIC ACID 1 MG TAB PO SCH (22:51)
[2016-12-07] MEDS: MULTIVITAMINS 1 EACH TAB PO SCH (22:51)
[2016-12-07] MEDS: PYRIDOXINE HCL 25 MG TAB PO SCH (22:51)
[2016-12-07] MEDS: ZOLPIDEM TARTRATE 5 MG TAB PO PRN (22:54)
[2016-12-07] MEDS: THIAMINE HCL 100 MG TAB PO SCH (22:58)
[2016-12-08] MEDS: ACETYLCYSTEINE 20% IH/PO 30 ML VIAL IH SCH ×3 (05:35→16:13)
[2016-12-08] MEDS: ALBUTEROL 3 ML DEYVIAL IH SCH ×3 (05:35→16:13)
[2016-12-08] MEDS: CEFEPIME HCL 2 GM in D5W 100 ML IV SCH ×3 (06:08→22:23)
[2016-12-08 06:34] LABS: INR 4.21 (0.83-1.16); PROTIME(PATIENT) 41.4 SEC (12.0-15.0)
[2016-12-08 06:56] LABS: ANION GAP 8 mEq/L (8-16); CALCIUM 9.3 mg/dL (8.5-10.4); CARBON DIOXIDE 28 mEq/l (22-31); CHLORIDE 104 mEq/L (97-110); GLOMERULAR FILTRATION RATE > 60; GLUCOSE 82 mg/dL (70-100); MAGNESIUM 2.3 mg/dL (1.6-2.3); POTASSIUM 3.9 mEq/L (3.5-5.2); SODIUM 140 mEq/L (134-144)
[2016-12-08] MEDS ORDERED: POTASSIUM CL 10 MEQ TAB PO ONE (07:12)
[2016-12-08] MEDS: PANTOPRAZOLE SODIUM 40 MG TAB PO SCH ×2 (09:02→21:29)
[2016-12-08] MEDS: CARVEDILOL 3.125 MG TAB PO SCH ×2 (09:02→18:08)
[2016-12-08] MEDS: FUROSEMIDE 20 MG TAB PO SCH (09:02)
[2016-12-08] MEDS: clonazePAM 0.5 MG TAB PO PRN ×2 (09:03→21:30)
[2016-12-08] MEDS: CLOPIDOGREL BISULFATE 75 MG TAB PO SCH (09:03)
--- NOTE | 2016-12-08 11:05 | HOSPPROG ---
Hospitalist Progress Note Assessment/Plan: # septic shock - source pna, sepsis physiology resolved # pneumonia - No fevers, BCx's neg, wbc's normalized. Sputum Cx growing GNRs, argenis, pseudomonas, possibly d/t aspiration - awaiting sensitivities (sent to [facility] due to insufficient growth in house). - cont cefepime D#6/ - initially treated with rocephin/azith - at this point, will just complete tx course inpt - will need f/u imaging in 3-4 weeks # dysphagia - VFSS showed mild-mod dysphagia - speech following - nectar thick liquids, pt initially distraught over this recommendation, feels more comfortable now with extra support # severe chronic CHF - EF 15%, BP improved today, appears more euvolemic today. He has diuresed 9 kg. Dry weight seems to be 60 kg. - cont coreg - resumed home dose of lasix yesterday - stopped entresto due to hypotension (BP 80/50), discussed this with cardiology and rec is to hold off on resuming rashad for at least 2 days - consider resuming lisinopril 2.5 mg at d/c and f/u with Dr. Rosen - short run of NSVT - has AICD in place, replete lytes carefully, K >4, Mg >2 # acute hypoxic resp failure 2/2 PNA / aspiration / HF - follow closely; patient is tenuous/high risk overall - he would like a nebulizer on discharge, vs inhaler, discussed # CAD s/p multiple PCI - plavix, warf, coreg, statin # a-fib/ppm - rate controlled on BB. INR supra-therapeutic on coumadin. - holding dose today, pharmacy dosing # bioprosthetic AVR, MVR # CVA - plavix, warfarin # pre-renal BART - resolved # dispo - cont inpt. Pt had palliaitive care consult for extra support surrounding management of chronic illness (HF, dysphagia, aspiration risk). He is much more at peace today and will d/c home after completion of atbx with home care and outpt palliative care support Subjective: Pt is in better spirits today after palliative care consult. He is willing to follow diet texture of thick liquids to prevent aspiration. Denies CP or SOB. No fevers. He is off oxygen. Objective: Vital Signs Temp Pulse Resp BP Pulse Ox 36.6 C 91 17 126/80 H 95 12/08/16 08:00 12/08/16 08:00 12/08/16 08:00 12/08/16 08:00 12/08/16 08:00 Microbiology 11/30/16 10:15 - Final Sputum, Expectorated Laboratory Results 12/04/16 05:20 12/08/16 06:15 12/07/16 12/08/16 12/09/16 05:59 05:59 05:59 Intake Total 420 520 Output Total 1955 500 Balance -1535 20 PT 41.4 SEC (12.0-15.0) H 12/08/16 06:15 INR 4.21 (0.83-1.16) H 12/08/16 06:15 - Physical Exam Constitutional: chronically ill appearing Eyes: PERRL Ears, Nose, Mouth, Throat: moist mucous membranes Cardiovascular: regular rate and rhythym Respiratory: no respiratory distress, inspiratory crackles Gastrointestinal: normoactive bowel sounds, soft, non-tender abdomen Skin: warm Musculoskeletal: generalized weakness Neurologic: AAOx3 Psychiatric: interacting appropriately ICD10 Worksheet Patient Problems: Problems Problem Status Onset Acute respiratory failure Acute COPD exacerbation Acute Hypoxemia Acute Pneumonia involving right lung Acute Subtherapeutic anticoagulation Acute Systolic congestive heart failure Acute Troponin level elevated Acute Acute chest pain Acute Alcoholic intoxication Acute CHRONIC DISEASE MANAGEMENTTransitional Care Acute Cardiomyopathy Acute Chest pain Acute Elevated INR Acute Pneumonia Acute Pre-syncope Acute Shortness of breath Acute Systolic CHF, acute on chronic Acute
[2016-12-08] MEDS: oxyCODONE IR 5 MG TAB PO PRN ×2 (13:24→22:22)
[2016-12-08] MEDS: FERROUS SULFATE 325 MG TAB PO SCH (18:08)
[2016-12-08 19:00] LABS: POTASSIUM 4.2 mEq/L (3.5-5.2)
--- NOTE | 2016-12-08 19:13 | GCON ---
[f rep st] CONSULTATION PALLIATIVE CARE CONSULTATION REFERRING PHYSICIAN: Shira Case MD REASON FOR REFERRAL: To elucidate goals of care, especially regarding dysphagia and need for thickened liquids. HISTORY OF PRESENT ILLNESS: The patient came to [facility] on 11/29/2013 with acute onset shortness of breath starting early that morning. He was evaluated including chest x-ray, and labs, and found to have an aspiration pneumonia. He is now on day 6 out of 7 of IV antibiotics. He has had a good response and is not on oxygen on his current exam. He had evaluation with speech therapy for possible aspiration, and a video fluoroscopic swallow study which showed aspiration on thin liquids. He has been placed on thickened liquids. He feels that this is a great impairment to his quality of life, especially as he very much enjoys normal textured hot coffee. Though he understands swallowing precautions and instructions on how to swallow safely, he is not sure he wants to comply especially, with the thickened liquids. He also reports that currently he does not feel good, does not feel healthy, and he is discouraged regarding the current turn in his health. He reports that at his baseline he lives independently in a halfway facility. He typically climbs the stairs to get to the level on which he lives. 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 He takes meals with his son and daughter who live nearby, often lunch with his son, and dinner with his daughter; at home he makes sandwiches. PAST MEDICAL HISTORY: 1. Chronic systolic heart failure with an ejection fraction of 14%. 2. Coronary artery disease, status post coronary artery bypass x2 and multiple stents. 3. Atrial flutter. 4. Bioprosthetic aortic and mitral valves. 5. History of embolic stroke x2. 6. COPD. 7. Bipolar disorder. SOCIAL HISTORY: His living situation is as described in HPI. He has history of tobacco abuse and alcohol abuse but is not currently smoking or drinking. FAMILY HISTORY: Positive for heart disease. REVIEW OF SYSTEMS: He denies fevers and chills. He has an occasional cough, which is nonproductive. He denies chest pain and palpitations. He does not have any respiratory distress and is currently not using oxygen. He is not in pain otherwise. He denies nausea, vomiting, constipation, or diarrhea. He has been able to ambulate as far as 150 feet with physical therapy. PHYSICAL EXAMINATION: VITALS: Blood pressure this morning was 126/80, his heart rate was 91, respiratory rate was 17, oxygen saturation was 95% on room air. Temperature is 36.6 degrees centigrade. GENERAL: This is a chronically ill-appearing man who appears his chronologic age, sitting up in bed, with daughter and son in the room, cooperative and in no acute distress. HEENT: Extraocular movements are intact. Pupils are equal, round, and reactive to light. Mucous membranes are moist. Dentition is in fair condition. NECK: Supple. HEART: Regular rate and rhythm. No murmurs, rubs, or gallops. LUNGS : Bibasilar crackles. No rhonchi and no wheezes. He is not tachypneic. He has an occasional nonproductive cough. ABDOMEN: Soft, nontender, and nondistended with normoactive bowel sounds. EXTREMITIES: No cyanosis, clubbing , or edema. NEUROLOGIC: He is alert and oriented x3. He is mildly perseverative and asks the same questions repeatedly, but otherwise appears to follow the conversation and interacts appropriately. There is no focal weakness. Sensation is intact to light touch. ASSESSMENT/RECOMMENDATIONS: 1. Aspiration pneumonia and dysphagia. Had discussion regarding prognosis of dysphagia and the possibility that, with intensive speech therapy, his swallow could improve, and he might no longer need to follow precautions carefully, and especially may no longer need to use thickened liquids. He found this to be a very hopeful possibility. Discussed this briefly with speech therapy on the unit, who reported that his video fluoroscopic swallow study on this admission was unchanged from his study of 2013; so his prognosis to improve is unclear; however certainly worth attempting. Advised continued speech therapy during his hospital stay, and then home care speech therapy with the goal of safe swallow with the least restrictive diet. Also discussed the possibility that if his quality of life was not good, and he was no longer interested in any life -prolonging strategies, that it would then be appropriate to simply eat and drink what he wants for comfort feeding, and then allow pneumonia to occur and a natural to ensue. He is not ready for this and reports that he still has considerable quality of life to look forward to. 2. Congestive heart failure. Ejection fraction of 14%. Several repeat hospitalizations this year. Discussed the possibility of home palliative care, and he and his family interested in order to continue discussions of quality of life and medical treatment and address subsequent medical decisions. Thank you very much for including the palliative care service in the care of this patient. We will continue to follow. Greater than 70 minutes were spent on this consultation, including more than 50 % of the time in record review and counseling for the patient and his family. /[id number]/MODL MTDD
[2016-12-08] MEDS: MIRTAZAPINE 15 MG TAB PO SCH (21:28)
[2016-12-08] MEDS: MULTIVITAMINS 1 EACH TAB PO SCH (21:29)
[2016-12-08] MEDS: PYRIDOXINE HCL 25 MG TAB PO SCH (21:29)
[2016-12-08] MEDS: TAMSULOSIN HCL 0.4 MG CAP PO SCH (21:29)
[2016-12-08] MEDS: VITAMIN B COMPLEX 1 EA CAP/TAB PO SCH (21:29)
[2016-12-08] MEDS: FINASTERIDE 5 MG TAB PO SCH (21:29)
[2016-12-08] MEDS: OMEGA-3 FATTY ACIDS 1,000 MG CAP PO SCH (21:29)
[2016-12-08] MEDS: THIAMINE HCL 100 MG TAB PO SCH (21:29)
[2016-12-08] MEDS: ZOLPIDEM TARTRATE 5 MG TAB PO PRN (21:30)
[2016-12-08] MEDS: traZODone 50 MG TAB PO SCH (21:30)
[2016-12-08] MEDS: QUEtiapine FUMARATE 200 MG TAB PO SCH (21:30)
[2016-12-08] MEDS: ATORVASTATIN CALCIUM 40 MG TAB PO SCH (21:30)
[2016-12-08] MEDS: FOLIC ACID 1 MG TAB PO SCH (21:30)
[2016-12-09] MEDS: ACETYLCYSTEINE 20% IH/PO 30 ML VIAL IH SCH ×4 (00:28→18:07)
[2016-12-09] MEDS: ALBUTEROL 3 ML DEYVIAL IH SCH ×4 (00:29→18:07)
[2016-12-09] MEDS: oxyCODONE IR 5 MG TAB PO PRN ×3 (06:20→20:38)
[2016-12-09] MEDS: clonazePAM 0.5 MG TAB PO PRN ×2 (06:20→11:35)
[2016-12-09] MEDS: CEFEPIME HCL 2 GM in D5W 100 ML IV SCH ×3 (06:21→23:09)
[2016-12-09 06:36] LABS: INR 4.11 (0.83-1.16); PROTIME(PATIENT) 40.6 SEC (12.0-15.0)
[2016-12-09 07:03] LABS: ANION GAP 12 mEq/L (8-16); CALCIUM 9.4 mg/dL (8.5-10.4); CARBON DIOXIDE 24 mEq/l (22-31); CHLORIDE 105 mEq/L (97-110); GLOMERULAR FILTRATION RATE > 60; GLUCOSE 82 mg/dL (70-100); MAGNESIUM 2.4 mg/dL (1.6-2.3); POTASSIUM 3.8 mEq/L (3.5-5.2); SODIUM 141 mEq/L (134-144)
[2016-12-09] MEDS: CLOPIDOGREL BISULFATE 75 MG TAB PO SCH (08:28)
[2016-12-09] MEDS: CARVEDILOL 3.125 MG TAB PO SCH ×2 (08:28→17:47)
[2016-12-09] MEDS: FUROSEMIDE 20 MG TAB PO SCH (08:28)
[2016-12-09] MEDS: PANTOPRAZOLE SODIUM 40 MG TAB PO SCH ×2 (08:28→20:40)
[2016-12-09] MEDS ORDERED: POTASSIUM CL 10 MEQ TAB PO ONE (10:16)
--- NOTE | 2016-12-09 13:40 | HOSPPROG ---
Hospitalist Progress Note Assessment/Plan: 76 yo M with hx of chronic systolic/diastolic heart failure, copd presenting with pna and septic shock # septic shock: 2/2 pna, initial lactate of 9, now resolved # pneumonia: suspect likely due to aspiration, personally reviewed most recent cxr with right upper and lower infiltrates, frequent penetration noted on videofluoro. Pseudomonas noted on culture. Has been on cefepime x 7 days at the end of the day today will complete abx. # aspiration: noted to have dysphagia and frequent penetration on videofluoro, recommended nectar thick liquids and working with distribution warehouse manager # acute on chronic systolic/diastolic heart failure: with severe systolic dysfunction, EF of 15%. Does appear to be compensated currently but diuresed about 4kg already during this stay. Continued on low dose lasix and will add back spironolactone. Entresto held as well for hypotension--will need reinitiation of rashad and will start lisinopril 2.5mg daily if bp tolerates. # acute hypoxic respiratory failure: in setting of pna and improved, now on room air # a fib/flutter: with PPM, continued on coumadin and carvedilol # CAD: with hx of CABG and stents, continue statin, bb--not on asa for some reason, will confirm # vhd: with bioprosthetic av/mv # h/o CVA # tricia: resolved, in setting of sepsis # dispo: plan to dc home 12/10 Patient new to my care. Old records reviewed and summarized as above. Care plan reviewed with CM, patients son present at bedside. Subjective: no significant overnight events, patient feeling better, but emotional about having been sick for so long Objective: Vital Signs Temp Pulse Resp BP Pulse Ox 36.5 C 80 16 112/72 92 12/09/16 11:18 12/09/16 12:06 12/09/16 12:06 12/09/16 11:18 12/09/16 12:06 Microbiology 11/30/16 10:15 - Final Sputum, Expectorated Laboratory Results 12/04/16 05:20 12/09/16 06:10 12/08/16 12/09/16 12/10/16 05:59 05:59 05:59 Intake Total 520 770 100 Output Total 500 250 150 Balance 20 520 -50 PT 40.6 SEC (12.0-15.0) H 12/09/16 06:10 INR 4.11 (0.83-1.16) H 12/09/16 06:10 awake alert nad anicteric op clear rrr + murmur no edema cta b soft nt nd no cce warm dry well perfused oriented appropriate ICD10 Worksheet Patient Problems: Problems Problem Status Onset Systolic CHF, acute on chronic Acute Chest pain Acute CHRONIC DISEASE MANAGEMENTTransitional Care Acute Hypoxemia Acute Pre-syncope Acute Cardiomyopathy Acute Alcoholic intoxication Acute Troponin level elevated Acute Elevated INR Acute Shortness of breath Acute Pneumonia Acute Acute chest pain Acute Acute respiratory failure Acute Pneumonia involving right lung Acute Systolic congestive heart failure Acute COPD exacerbation Acute Subtherapeutic anticoagulation Acute
[2016-12-09] MEDS: FERROUS SULFATE 325 MG TAB PO SCH (15:48)
[2016-12-09 20:29] VITALS: RESP 16
[2016-12-09] MEDS: ATORVASTATIN CALCIUM 40 MG TAB PO SCH (20:36)
[2016-12-09] MEDS: MIRTAZAPINE 15 MG TAB PO SCH (20:37)
[2016-12-09] MEDS: FINASTERIDE 5 MG TAB PO SCH (20:37)
[2016-12-09] MEDS: VITAMIN B COMPLEX 1 EA CAP/TAB PO SCH (20:37)
[2016-12-09] MEDS: TAMSULOSIN HCL 0.4 MG CAP PO SCH (20:37)
[2016-12-09] MEDS: PYRIDOXINE HCL 25 MG TAB PO SCH (20:37)
[2016-12-09] MEDS: ZOLPIDEM TARTRATE 5 MG TAB PO PRN (20:38)
[2016-12-09] MEDS: MULTIVITAMINS 1 EACH TAB PO SCH (20:38)
[2016-12-09] MEDS: THIAMINE HCL 100 MG TAB PO SCH (20:40)
[2016-12-09] MEDS: FOLIC ACID 1 MG TAB PO SCH (20:40)
[2016-12-09] MEDS: OMEGA-3 FATTY ACIDS 1,000 MG CAP PO SCH (20:40)
[2016-12-09] MEDS: traZODone 50 MG TAB PO SCH (20:40)
[2016-12-09] MEDS: QUEtiapine FUMARATE 200 MG TAB PO SCH (20:40)
[2016-12-09 23:58] VITALS: TEMP 97.8
[2016-12-10] MEDS: ACETYLCYSTEINE 20% IH/PO 30 ML VIAL IH SCH ×3 (04:21→10:36)
[2016-12-10] MEDS: ALBUTEROL 3 ML DEYVIAL IH SCH ×3 (04:22→10:34)
[2016-12-10] MEDS: CEFEPIME HCL 2 GM in D5W 100 ML IV SCH (06:05)
[2016-12-10 06:32] LABS: INR 3.91 (0.83-1.16)
[2016-12-10 06:43] LABS: MAGNESIUM 2.3 mg/dL (1.6-2.3)
[2016-12-10 07:28] VITALS: BP 136/83
[2016-12-10] MEDS: oxyCODONE IR 5 MG TAB PO PRN (08:23)
[2016-12-10] MEDS: PANTOPRAZOLE SODIUM 40 MG TAB PO SCH (08:23)
[2016-12-10] MEDS: clonazePAM 0.5 MG TAB PO PRN (08:25)
[2016-12-10] MEDS: CLOPIDOGREL BISULFATE 75 MG TAB PO SCH (08:26)
[2016-12-10] MEDS: FUROSEMIDE 20 MG TAB PO SCH (08:26)
[2016-12-10] MEDS: CARVEDILOL 3.125 MG TAB PO SCH (08:27)
[2016-12-10] MEDS ORDERED: SPIRONOLACTONE 25 MG TAB PO SCH ×2 (09:00)
[2016-12-10] MEDS ORDERED: LISINOPRIL 2.5 MG TAB PO SCH (09:00)
--- NOTE | 2016-12-10 09:09 | PDIAF ---
- Diagnosis Diagnosis: sepsis and pna Code Status: Do Not Resuscitate - Medication Management Discharge Medications: Medications to Continue on Transfer Atorvastatin Calcium [Lipitor 40 mg (*)] 40 mg PO HS 08/31/14 [Last Taken ] Ferrous Sulfate [Ferrous Sulf 325 MG (*)] 325 mg PO DAILY@17 08/31/14 [Last Taken 11/28/16] Folic Acid [Folic Acid 1 MG (*)] 1 mg PO HS 08/31/14 [Last Taken 11/28/16] Multivitamins [Multivitamin (*)] 1 each PO HS 08/31/14 [Last Taken 11/28/16] Thiamine HCl 100 mg PO HS 08/31/14 [Last Taken 11/28/16] traZODone [traZODONE 50MG (*)] 50 mg PO HS 08/31/14 [Last Taken 11/28/16] Finasteride [Proscar 5 MG (*)] 5 mg PO HS 10/20/15 [Last Taken 11/28/16] [place]-3 Fatty Acids [Fish Oil 1000 mg (*)] 1,000 mg PO HS 10/20/15 [Last Taken 11/28/16] Tamsulosin HCl [Flomax 0.4 MG (*)] 0.4 mg PO HS 10/20/15 [Last Taken 11/28/16] Warfarin Sodium [Coumadin 5MG (*)] 5 mg PO SUMOTUWEFR@16 10/20/15 [Last Taken ] Omeprazole [Prilosec 20 mg] 20 mg PO DAILY 08/17/16 [Last Taken 11/29/16] Pyridoxine HCl [Vitamin B-6 25 mg (*)] 25 mg PO HS 08/17/16 [Last Taken 11/28/16 ] Quetiapine Fumarate [Seroquel Xr] 400 mg PO HS 08/17/16 [Last Taken 11/28/16] Vitamin B Complex [B Complex] 1 each PO HS 08/17/16 [Last Taken 11/28/16] Clopidogrel Bisulfate [Plavix (*)] 75 mg PO DAILY #0 tab 08/18/16 [Last Taken ] Mirtazapine [Remeron] 45 mg PO HS 09/10/16 [Last Taken 11/28/16] Warfarin Sodium [Coumadin 5MG (*)] 7.5 mg PO THSA@16 09/10/16 [Last Taken ] Pantoprazole Sodium [Protonix 40mg (*)] 40 mg PO HS 09/20/16 [Last Taken ] Carvedilol [Coreg (*)] 6.25 mg PO BIDMEAL 11/29/16 [Last Taken 11/29/16 08:00] Furosemide [Lasix 20 MG (*)] 20 mg PO DAILY 11/29/16 [Last Taken 11/29/16] Lisinopril [Zestril 2.5 mg (*)] 2.5 mg PO DAILY #30 tab 12/10/16 [Last Taken Unknown] Spironolactone [Aldactone 25 MG (*)] 12.5 mg PO DAILY #30 tab 12/10/16 [Last Taken Unknown] clonazePAM [Klonopin (*)] 0.5 mg PO BID PRN #30 tab 12/10/16 [Last Taken Unknown ] Discharge Medications: Refer to the Discharge Home Medication list for PRN reason. - Orders Services needed: Home Care, Registered Nurse, Physical Therapy, Occupational Therapy, Speech Language Pathologist Home Care Face to Face: I certify that this patient was under my care and that I had the required [id number] encounter meeting the encounter requirements on the discharge day. My findings support the fact that the patient is homebound as defined in CMS Chapter 7 Medicare Benefits Manual 30.1.1, The condition of the patient is such that there exists a normal inability to leave home and consequently, leaving home would require a considerable and taxing effort. Diet Recommendation: cardiac -low fat low salt Diet Texture: Regular Texture Diet, [place] Thick Liquids, Water Protocol, Meds Whole w/Liquids Weigh Patient: weekly - Labs/Radiology CBC Date: 12/12/16 PT/INR Date: 12/12/16 (call results to coumadin clinic) - Follow Up Care Current Providers and Referrals: Ceferino Rosen MD [Medical Doctor] - Patient,NotPresent [Unknown] - As per Instructions
--- NOTE | 2016-12-10 09:19 | PDIAF ---
- Diagnosis Diagnosis: sepsis and pna Code Status: Do Not Resuscitate - Medication Management Discharge Medications: Medications to Continue on Transfer Atorvastatin Calcium [Lipitor 40 mg (*)] 40 mg PO HS 08/31/14 [Last Taken ] Ferrous Sulfate [Ferrous Sulf 325 MG (*)] 325 mg PO DAILY@17 08/31/14 [Last Taken 11/28/16] Folic Acid [Folic Acid 1 MG (*)] 1 mg PO HS 08/31/14 [Last Taken 11/28/16] Multivitamins [Multivitamin (*)] 1 each PO HS 08/31/14 [Last Taken 11/28/16] Thiamine HCl 100 mg PO HS 08/31/14 [Last Taken 11/28/16] traZODone [traZODONE 50MG (*)] 50 mg PO HS 08/31/14 [Last Taken 11/28/16] Finasteride [Proscar 5 MG (*)] 5 mg PO HS 10/20/15 [Last Taken 11/28/16] [place]-3 Fatty Acids [Fish Oil 1000 mg (*)] 1,000 mg PO HS 10/20/15 [Last Taken 11/28/16] Tamsulosin HCl [Flomax 0.4 MG (*)] 0.4 mg PO HS 10/20/15 [Last Taken 11/28/16] Omeprazole [Prilosec 20 mg] 20 mg PO DAILY 08/17/16 [Last Taken 11/29/16] Pyridoxine HCl [Vitamin B-6 25 mg (*)] 25 mg PO HS 08/17/16 [Last Taken 11/28/16 ] Quetiapine Fumarate [Seroquel Xr] 400 mg PO HS 08/17/16 [Last Taken 11/28/16] Vitamin B Complex [B Complex] 1 each PO HS 08/17/16 [Last Taken 11/28/16] Clopidogrel Bisulfate [Plavix (*)] 75 mg PO DAILY #0 tab 08/18/16 [Last Taken ] Mirtazapine [Remeron] 45 mg PO HS 09/10/16 [Last Taken 11/28/16] Pantoprazole Sodium [Protonix 40mg (*)] 40 mg PO HS 09/20/16 [Last Taken ] Carvedilol [Coreg (*)] 6.25 mg PO BIDMEAL 11/29/16 [Last Taken 11/29/16 08:00] Furosemide [Lasix 20 MG (*)] 20 mg PO DAILY 11/29/16 [Last Taken 11/29/16] Lisinopril [Zestril 2.5 mg (*)] 2.5 mg PO DAILY #30 tab 12/10/16 [Last Taken Unknown] Spironolactone [Aldactone 25 MG (*)] 12.5 mg PO DAILY #30 tab 12/10/16 [Last Taken Unknown] Warfarin Sodium 2 mg PO DAILY #30 tablet 12/10/16 [Last Taken Unknown] clonazePAM [Klonopin (*)] 0.5 mg PO BID PRN #30 tab 12/10/16 [Last Taken Unknown ] Discharge Medications: Refer to the Discharge Home Medication list for PRN reason. PICC Care - Routine: N/A - Orders Services needed: Home Care, Registered Nurse, Physical Therapy, Occupational Therapy, Speech Language Pathologist Home Care Face to Face: I certify that this patient was under my care and that I had the required [id number] encounter meeting the encounter requirements on the discharge day. My findings support the fact that the patient is homebound as defined in CMS Chapter 7 Medicare Benefits Manual 30.1.1, The condition of the patient is such that there exists a normal inability to leave home and consequently, leaving home would require a considerable and taxing effort. Diet Recommendation: cardiac -low fat low salt Diet Texture: Regular Texture Diet, [place] Thick Liquids, Water Protocol, Meds Whole w/Liquids Weigh Patient: weekly Additional: Do not start coumadin until 12/12/16. - Labs/Radiology CBC Date: 12/12/16 PT/INR Date: 12/12/16 (q 3 days after that, call results to coumadin clnic) - Follow Up Care Current Providers and Referrals: Ceferino Rosen MD [Medical Doctor] - Patient,NotPresent [Unknown] - As per Instructions
--- NOTE | 2016-12-10 09:19 | PDDCSUM ---
Discharge Summary Discharge Summary: Dates of service 11/29-12/10/16 Discharge dx: # septic shock # pneumonia # aspiration # acute on chronic diastolic/systolic heart failure # acute hypoxic respiratory failure # a fib/flutter # cad # vhd # h/o cva # tricia Consultations: critical care medicine, palliative care Procedures: PICC line placement, videofluoro [facility] Hospital course by problem: # septic shock: 2/2 pna, initial lactate of 9, now resolved # pneumonia: suspect likely due to aspiration, personally reviewed most recent cxr with right upper and lower infiltrates, frequent penetration noted on videofluoro. Pseudomonas noted on culture. Completed course of abx with cefepime while in house. Clinically resolved. # aspiration: noted to have dysphagia and frequent penetration on videofluoro, recommended nectar thick liquids and working with paginator # acute on chronic systolic/diastolic heart failure: with severe systolic dysfunction, EF of 15%. Does appear to be compensated currently but diuresed about 4kg already during this stay. Continued on low dose lasix and will add back spironolactone at lower dose. Entresto held as well for hypotension--will need reinitiation of rashad and will start lisinopril 2.5mg daily if bp tolerates. # acute hypoxic respiratory failure: in setting of pna and improved, now on room air # a fib/flutter: with PPM, continued on coumadin and carvedilol. Coumadin has been supratherapeutic in setting of poor PO intake, holding for now, will resume at 2mg daily and have home health check frequently for now. # anemia: normocytic, initial drop likely dilutional # CAD: with hx of CABG and stents, continue statin, bb--not on asa for some reason, will confirm # vhd: with bioprosthetic av/mv # h/o CVA # tricia: resolved, in setting of sepsis Dispo: dc home with home health > 35 min spent in dc, more than half in counseling of patient regarding f/u care plan
[2016-12-10 10:37] VITALS: PULSE 98; O2SAT 98
== END 2016-12-10 13:22 | disposition home health service (06) | DRG 871 ==
LOC: CED 05:47 → CEDHOLD 06:58 → F2N 07:29 → F2W 12-02 17:16
PROVIDERS: ADMIT Internal Medicine; ATTEND Internal Medicine
PROC: 02HV33Z Insertion of Infusion Device into Superior Vena Cava, Percutaneous Approach (ICD-10-PCS; principal; 2016-11-29)
DX: A41.9 Sepsis, unspecified organism (principal); R65.21 Severe sepsis with septic shock; J69.0 Pneumonitis due to inhalation of food and vomit; J96.01 Acute respiratory failure with hypoxia; I95.9 Hypotension, unspecified; N17.9 Acute kidney failure, unspecified; I11.0 Hypertensive heart disease with heart failure; I50.43 Acute on chronic combined systolic (congestive) and diastolic (congestive) heart failure; I25.10 Atherosclerotic heart disease of native coronary artery without angina pectoris; D64.9 Anemia, unspecified; N40.0 Benign prostatic hyperplasia without lower urinary tract symptoms; J44.9 Chronic obstructive pulmonary disease, unspecified; I48.92 Unspecified atrial flutter; I48.91 Unspecified atrial fibrillation; E78.5 Hyperlipidemia, unspecified; F31.9 Bipolar disorder, unspecified; Z95.2 Presence of prosthetic heart valve; Z95.5 Presence of coronary angioplasty implant and graft; Z95.1 Presence of aortocoronary bypass graft; Z95.810 Presence of automatic (implantable) cardiac defibrillator; Z99.81 Dependence on supplemental oxygen; Z86.711 Personal history of pulmonary embolism; Z87.891 Personal history of nicotine dependence; Z96.652 Presence of left artificial knee joint; Z96.641 Presence of right artificial hip joint
CPT/HCPCS: 71010-PO; 80048-PO; 80076-PO; 82947-QW; 83605-PO; 83735-PO; 83880-PO; 84484-PO; 85025-PO; 85378-PO; 85610-PO; 87449-90; 92526-GN; 92610-GN; 92611-GN; 96374; 97110-GP; 97116-GP; 97161-GP; 97165-GO; 97530-GO; 97530-GP; 97535-GO; C1751; G8978-GP-CI; G8979-GP-CI; G8980-GP-CI; G8987-GO-CJ; G8988-GO-CI; G8989-GO-CI; G8996-GN-CJ; G8997-GN-CI; G8997-GN-CJ; G8998-GN-CJ; J0330; J0456; J0692; J0696; J1940; J2543; J2997; J3475; P9047

== ENCOUNTER 2017-02-14 08:27 | Inpatient (IN) | payer OTHER ==
[2017-02-14] MEDS ORDERED: methylPREDNISolone SOD SUCC 125 MG/2 ML VIAL IVP ONE (08:41)
[2017-02-14] MEDS ORDERED: IPRATROPIUM/ALBUTEROL 3 ML DEYVIAL IH ONE (08:41)
[2017-02-14] MEDS ORDERED: MAGNESIUM SULF 2 GM/WATER 50 ML IV ONE (08:41)
[2017-02-14] MEDS ORDERED: FUROSEMIDE 40 MG/4 ML VIAL IVP ONE (08:43)
[2017-02-14] MEDS ORDERED: CLINDAMYCIN 300 MG in NS 100 ML IV ONE (08:46)
--- NOTE | 2017-02-14 08:52 | EDPHY ---
H & P Time Seen by Provider: 02/14/17 08:29 HPI/ROS: HPI Shortness of breath, cough, fever. 76-year-old male by private vehicle with his son. This patient has a history of COPD, aspiration pneumonia, chronic systolic heart failure with an ejection fraction of 14%. He reports he started developing a cough with worsening shortness of breath and fever starting yesterday. ROS: Constitutional: No fever, no chills. No weakness. Eyes: No discharge. No changes in vision. ENT: No sore throat. No nasal congestion or rhinorrhea. Respiratory: No cough. No shortness of breath. Cardiac: No chest pain, no palpitations. Gastrointestinal: No abdominal pain, no vomiting, no diarrhea. Genitourinary: No hematuria. No dysuria or increased frequency with urination. Musculoskeletal: No back pain. No neck pain. No myalgias or arthralgias. Skin: No rashes. Neurological: No headache. No focal weakness or altered sensation. Past medical history: COPD, chronic systolic heart failure with ejection fraction of 14%, aspiration pneumonia, prosthetic aortic valve, anxiety, atrial flutter, he is anticoagulated, embolic stroke x2. His daughter is power of tax associate attorney. He is a do not resuscitate. Social history: Former smoker. No alcohol. No drugs. Physical Exam: General Appearance: Alert, anxious, very dyspneic. This patient is responding to questions short yes or no answers. This patient appears well-hydrated and well-nourished. Eyes: Pupils equal and round no pallor or injection. No lid edema, erythema or injection. ENT, Mouth: Mucous membranes are moist. The pharyngeal tissues are unremarkable. No edema or swelling. No asymmetry suggestive of abscess. No erythema or exudates. Respiratory: Retractions, tachypnea at 40, decreased lung sounds superiorly, markedly diminished right lower and mid lung field with fine crackles. Intermittent cough productive of yellow sputum. Cardiovascular: Regular rate and rhythm. Tachycardia. Systolic murmur. Gastrointestinal: Abdomen is soft and nontender, no masses, bowel sounds normal. No focal tenderness at McBurney's point. No Flores sign. Neurological: Motor sensory function is grossly intact. Cranial nerves are normal. Gait is normal. Skin: Warm and dry, no rashes. Musculoskeletal: Neck is supple and nontender. Extremities are symmetrical. All joints range without pain or impingement. Psychiatric: Mild agitation. No depression. Database: EKG: EKG time is 9:29 a.m.; EKG shows wide complex ventricular paced complexes at a rate of 83. Appropriate discordance is noted. This EKG was compared to prior EKG from November 29 of this year and does not show any significant changes. Interpreted by me. Imaging: Chest x-ray AP portable: Extensive infiltrative process right lung field, pacemaker, probable cardiomegaly, pacemaker leads appear intact. Interpreted by me. Procedures: Emergency department course: Initial attempt a peripheral IVs failed. I placed a temporary 18 gauge catheter right internal jugular vein under ultrasound guidance. No complications with this procedure. Patient placed on a monitoring specialist. Pulse oximetry on room air initially was in the mid to low 70s. He was placed on nasal cannula oxygen as well as non-rebreather face mask. This was quickly switched over to CPAP set at 10. Pulse oximetries came up to the low 90s. Patient had relief with CPAP and is tolerating this treatment well. He will be given 2 g of IV magnesium, 125 mg of IV Solu-Medrol, 40 mg of IV Lasix and a trial albuterol/Atrovent nebulizer treatment. EKG and chest x-ray obtained and reviewed by myself. After review of chest x-ray, patient started on IV cefepime 2 g in the emergency department. Recent hospital admission, history of aspiration as well. Patient meets criteria for sepsis based on source of infection and SIRS criteria of tachycardia and tachypnea. Blood cultures and sepsis protocol initiated on presentation and initial evaluation. 9:30 a.m., patient much more comfortable on CPAP. Pulse oximetry currently 95% . monitor technician shows a wide complex paced rhythm with ventricular rate of 82. Blood pressure currently 124/70. Axillary temperature was 98.7degrees. 9:40 a.m., patient's venous lactate is 2.5. He meets criteria for severe sepsis. Severe sepsis protocol initiated. Given his history of heart failure an injection fraction of 14% IV fluid resuscitation will be conservative. 10:25 p.m., EMS at the bedside. Patient's blood pressure is 96/68, heart rate 79 with wide complex paced rhythm on the monitor. He states that he feels much better. He appears much more relaxed. No tachypnea. Respiratory rate currently 18. He has been tolerating CPAP well. IV fluids will be continued conservatively. Patient transferred in improved but guarded condition to ICU at [facility]. Differential Diagnosis: The differential diagnosis on this patient includes but is not limited to COPD exacerbation, congestive heart failure exacerbation, pneumonia, sepsis. This represents a partial list of diagnoses considered. These considerations are based on history, physical exam, past history, reassessment and diagnostic testing. Smoking Status: Former smoker Constitutional: Initial Vital Signs Heart Rate 106 H 02/14/17 08:30 Respiratory Rate 37 H 02/14/17 08:30 Blood Pressure 137/95 H 02/14/17 08:30 O2 Sat (%) 92 02/14/17 08:30 O2 Delivery Mode CPAP O2 (L/minute) 15 Allergies/Adverse Reactions: lorazepam [From Ativan] Allergy (Mild, Verified 02/14/17 08:32) Other-Enter Comments Home Medications: Medication Instructions Recorded Atorvastatin Calcium [Lipitor 40 40 mg PO HS 08/31/14 mg (*)] Ferrous Sulfate [Ferrous Sulf 325 325 mg PO DAILY@17 08/31/14 MG (*)] Folic Acid [Folic Acid 1 MG (*)] 1 mg PO HS 08/31/14 Multivitamins [Multivitamin (*)] 1 each PO HS 08/31/14 Thiamine HCl 100 mg PO HS 08/31/14 traZODone [traZODONE 50MG (*)] 50 mg PO HS 08/31/14 Finasteride [Proscar 5 MG (*)] 5 mg PO HS 10/20/15 Strang-3 Fatty Acids [Fish Oil 1000 1,000 mg PO HS 10/20/15 mg (*)] Tamsulosin HCl [Flomax 0.4 MG (*)] 0.4 mg PO HS 10/20/15 Omeprazole [Prilosec 20 mg] 20 mg PO DAILY 08/17/16 Pyridoxine HCl [Vitamin B-6 25 mg 25 mg PO HS 08/17/16 (*)] Quetiapine Fumarate [Seroquel Xr] 400 mg PO HS 08/17/16 Vitamin B Complex [B Complex] 1 each PO HS 08/17/16 Clopidogrel Bisulfate [Plavix (*)] 75 mg PO DAILY #0 tab 08/18/16 Mirtazapine [Remeron] 45 mg PO HS 09/10/16 Pantoprazole Sodium [Protonix 40mg 40 mg PO HS 09/20/16 (*)] Carvedilol [Coreg (*)] 6.25 mg PO BIDMEAL 11/29/16 Furosemide [Lasix 20 MG (*)] 20 mg PO DAILY 11/29/16 Lisinopril [Zestril 2.5 mg (*)] 2.5 mg PO DAILY #30 tab 12/10/16 Spironolactone [Aldactone 25 MG 12.5 mg PO DAILY #30 tab 12/10/16 (*)] Warfarin Sodium 2 mg PO DAILY #30 tablet 12/10/16 clonazePAM [Klonopin (*)] 0.5 mg PO BID PRN #30 tab 12/10/16 Medical Decision Making - Diagnostics Imaging Results: Imaging Impressions Chest X-Ray 02/14/17 08:34 Impression: Suspect right lung pneumonia. Critical Care Time: I spent a total of 42 minutes of critical care time in obtaining history, performing a physical exam, bedside monitoring of interventions, collecting and interpreting tests and discussion with consultants but not including time spent performing procedures. - Data Points Laboratory Results: Laboratory Results 02/14/17 09:07 02/14/17 09:07 02/14/17 02/14/17 02/14/17 09:07 09:07 09:07 WBC RBC Hgb Hct MCV MCH MCHC RDW Plt Count MPV Neut % (Auto) Lymph % (Auto) [place] % (Auto) Eos % (Auto) Baso % (Auto) Nucleat RBC Rel Count Absolute Neuts (auto) Absolute Lymphs (auto) Absolute Monos (auto) Absolute Eos (auto) Absolute Basos (auto) Absolute Nucleated RBC Immature Gran % Immature Gran # PT 24.6 SEC H SEC (12.0-15.0) INR 2.24 H (0.83-1.16) APTT 28.1 SEC SEC (23.0-38.0) D-Dimer 5.51 ug/mLFEU H ug/mLFEU (0.00-0.50) VBG Lactic Acid 2.5 mmol/L H mmol/L (0.7-2.1) Sodium 136 mEq/L mEq/L (134-144) Potassium 4.2 mEq/L mEq/L (3.5-5.2) Chloride 101 mEq/L mEq/L (97-110) Carbon Dioxide 21 mEq/l L mEq/l (22-31) Anion Gap 14 mEq/L mEq/L (8-16) BUN 16 mg/dL mg/dL (7-23) Creatinine 0.9 mg/dL mg/dL (0.7-1.3) Estimated GFR > 60 Glucose 161 mg/dL H mg/dL (70-100) Calcium 9.0 mg/dL mg/dL (8.5-10.4) Total Bilirubin 1.7 mg/dL H mg/dL (0.1-1.4) Troponin I 0.053 ng/mL H ng/mL (0.000-0.034) NT-Pro-B Natriuret Pep 3100 pg/mL H pg/mL (0-125) 02/14/17 09:07 WBC 11.56 10^3/uL H 10^3/uL (3.80-9.50) RBC 4.19 10^6/uL L 10^6/uL (4.40-6.38) Hgb 13.6 g/dL L g/dL (13.7-17.5) Hct 39.8 % L % (40.0-51.0) MCV 95.0 fL fL (81.5-99.8) MCH 32.5 pg pg (27.9-34.1) MCHC 34.2 g/dL g/dL (32.4-36.7) RDW 12.8 % % (11.5-15.2) Plt Count 200 10^3/uL 10^3/uL (150-400) MPV 9.8 fL fL (8.7-11.7) Neut % (Auto) 83.2 % H % (39.3-74.2) Lymph % (Auto) 11.7 % L % (15.0-45.0) [place] % (Auto) 3.7 % L % (4.5-13.0) Eos % (Auto) 0.8 % % (0.6-7.6) Baso % (Auto) 0.3 % % (0.3-1.7) Nucleat RBC Rel Count 0.0 % % (0.0-0.2) Absolute Neuts (auto) 9.62 10^3/uL H 10^3/uL (1.70-6.50) Absolute Lymphs (auto) 1.35 10^3/uL 10^3/uL (1.00-3.00) Absolute Monos (auto) 0.43 10^3/uL 10^3/uL (0.30-0.80) Absolute Eos (auto) 0.09 10^3/uL 10^3/uL (0.03-0.40) Absolute Basos (auto) 0.03 10^3/uL 10^3/uL (0.02-0.10) Absolute Nucleated RBC 0.00 10^3/uL 10^3/uL (0-0.01) Immature Gran % 0.3 % % (0.0-1.1) Immature Gran # 0.04 10^3/uL 10^3/uL (0.00-0.10) PT INR APTT D-Dimer VBG Lactic Acid Sodium Potassium Chloride Carbon Dioxide Anion Gap BUN Creatinine Estimated GFR Glucose Calcium Total Bilirubin Troponin I NT-Pro-B Natriuret Pep Medications Given: Discontinued Medications Albuterol/Ipratropium (Duoneb) 3 ml IH EDNOW ONE Stop: 02/14/17 08:42 Last Admin: 02/14/17 09:00 Dose: 3 ml Furosemide (Lasix Injection) 40 mg IVP EDNOW ONE Stop: 02/14/17 08:44 Last Admin: 02/14/17 09:17 Dose: 40 mg Magnesium Sulfate (Magnesium Sulf 2 Gm (Premix)) 50 mls @ 50 mls/hr IV EDNOW ONE Stop: 02/14/17 09:40 Last Admin: 02/14/17 09:14 Dose: 50 mls Clindamycin 300 mg/ Sodium (Chloride) 102 mls @ 204 mls/hr IV EDNOW ONE PRN Reason: Protocol Stop: 02/14/17 09:15 Last Admin: 02/14/17 10:43 Dose: Not Given Piperacillin Sod/Tazobactam (Sod 4.5 gm/ Sodium Chloride) 100 mls @ 200 mls/hr IV EDNOW ONE PRN Reason: Protocol Stop: 02/14/17 09:42 Last Admin: 02/14/17 10:43 Dose: Not Given Cefepime HCl 2 gm/ Sodium (Chloride) 100 mls @ 200 mls/hr IV EDNOW ONE PRN Reason: Protocol Stop: 02/14/17 10:01 Last Admin: 02/14/17 10:01 Dose: 100 mls Methylprednisolone Sodium Succinate (Solu-Medrol) 125 mg IVP EDNOW ONE Stop: 02/14/17 08:42 Last Admin: 02/14/17 09:13 Dose: 125 mg Departure - Departure Disposition: [facility] Acute Clinical Impression: Pneumonia, Congestive cardiac failure, Hypoxia, Sepsis Condition: Serious
[2017-02-14] MEDS ORDERED: PIPERACILLIN SODIUM/TAZOBACTAM 4.5 GM in NS 100 ML IV ONE (09:13)
[2017-02-14 09:18] LABS: % IMMATURE GRANULYOCYTES 0.3 % (0.0-1.1); ABSOLUTE IMMATURE GRANULOCYTES 0.04 10^3/uL (0.00-0.10); ADD DIFF? NO; ADD MORPH? NO; ADD SCAN? NO; ATYPICAL LYMPHOCYTE FLAG 0 (0-99); FRAGMENT RBC FLAG 0 (0-99); HEMATOCRIT 39.8 % (40.0-51.0); HEMOGLOBIN 13.6 g/dL (13.7-17.5); LEFT SHIFT FLG 0 (0-99); LIPEMIA HEMOLYSIS FLAG 90 (0-99); MEAN CELL HEMOGLOBIN 32.5 pg (27.9-34.1); MEAN CELL HEMOGLOBIN CONCENTR. 34.2 g/dL (32.4-36.7); MEAN PLATELET VOLUME 9.8 fL (8.7-11.7); PLATELET CLUMPS FLAG 0 (0-99); PLATELET COUNT 200 10^3/uL (150-400); RED BLOOD CELL COUNT 4.19 10^6/uL (4.40-6.38); RED CELL DISTRIBUTION WIDTH 12.8 % (11.5-15.2)
[2017-02-14 09:30] LABS: APTT 28.1 SEC (23.0-38.0); INR 2.24 (0.83-1.16); PROTIME(PATIENT) 24.6 SEC (12.0-15.0)
[2017-02-14 09:31] LABS: ANION GAP 14 mEq/L (8-16); BILIRUBIN,TOTAL 1.7 mg/dL (0.1-1.4); CARBON DIOXIDE 21 mEq/l (22-31); CHLORIDE 101 mEq/L (97-110); CREATININE 0.9 mg/dL (0.7-1.3); GLOMERULAR FILTRATION RATE > 60; GLUCOSE 161 mg/dL (70-100); POTASSIUM 4.2 mEq/L (3.5-5.2); SODIUM 136 mEq/L (134-144)
--- NOTE | 2017-02-14 09:31 | CPEKG ---
Heart Rate: 83 RR Interval: 723 P-R Interval: 174 QRSD Interval: 166 QT Interval: 424 QTC Interval: 499 P [place]: 67 QRS [place]: 182 EKG Severity - ABNORMAL ECG - EKG Impression: VENTRICULAR-PACED COMPLEXES Electronically Signed By: Matilda Montana 14-Feb-2017 12:33:27
[2017-02-14] MEDS ORDERED: CEFEPIME HCL 2 GM in NS 100 ML IV ONE (09:32)
[2017-02-14 09:44] LABS: TROPONIN I 0.053 ng/mL (0.000-0.034)
[2017-02-14 12:39] LABS: MIXED VENOUS O2 SATURATION 87 % (65-75)
[2017-02-14] MEDS ORDERED: ONDANSETRON DISINTEGRATING 4 MG TAB PO PRN (13:24)
[2017-02-14] MEDS ORDERED: ONDANSETRON 4 MG/2 ML VIAL IVP PRN (13:24)
[2017-02-14] MEDS ORDERED: NS 1,000 ML IV SCH (13:30)
[2017-02-14] MEDS: oxyCODONE IR 5 MG TAB PO PRN ×2 (14:13→20:13)
--- NOTE | 2017-02-14 14:57 | GHP ---
[f rep st] HISTORY AND PHYSICAL DATE OF ADMISSION: 02/14/2017 HISTORY OF PRESENT ILLNESS: The patient is a pleasant 76-year-old gentleman, well-known to me from a dmissions, who has a history of valvular heart disease, coronary artery disease, COPD, aspiration, an d at this point in time alcoholism in remission, who presents with respiratory distress. He was seen in urgent care in [place], where he lives. When I discussed the case with Dr. Montana, he had concern that the patient had sepsis, CHF, COPD flare, etc. The patient received antibiotics, Lasix, and when I see him, he says he feels much better. He is not having chest pain. He is not having he art failure symptoms. He was admitted here about 2 months ago, in November, where he had a video swallow showing frequent penet ration with trace aspiration of thin liquids. He was recommended for nectar thick liquids, received speech therapy here, he was discharged home, but he has not continued speech therapy at home. He den ies coughing with eating. He does not note that today's event was in close correlation proximity of eating. He is not having any fever or chills. He takes Coumadin for mechanical heart valves, and he has a therapeutic INR on presentation. He does not have urinary symptoms. REVIEW OF SYSTEMS: A complete 10-point review of systems conducted, and negative except as noted in the HPI. PAST MEDICAL HISTORY: 1. Alcoholism, in remission. In 2010, he had numerous alcohol-related admissions. 2. Chronic systolic heart failure with EF of 15%. 3. CAD with CABG x2, with multiple stents. 4. Atrial flutter. 5. 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 6. COPD. 7. Bipolar. 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 Lives in [place]. Do not resuscitate. FAMILY HISTORY: Notable for heart disease. ALLERGIES: Lorazepam. HOME MEDICATIONS: Atorvastatin, ferrous sulfate, folic acid, furosemide, pantoprazole, pyridoxine, s pironolactone, thiamin, multivitamin, carvedilol, clonazepam, clopidogrel, finasteride, gabapentin, l isinopril, mirtazapine, multivitamin, fish oil, omeprazole, quetiapine, tamsulosin, trazodone, and wa rfarin. PHYSICAL EXAM: PRESENTING VITAL SIGNS: Temp 37.1, blood pressure 136/77, pulse 94, breathing 34 radha es a minute, 79% on room air. He is currently 92% on room air, although, he is febrile at 38. GENER AL: In no acute distress. Sclerae anicteric. Oropharynx clear. Mucous membranes are moist. NECK: Supple, without lymphadenopathy or JVD. LUNGS: Showed dense rhonchi throughout the right side, wi th crackles to the left base. Good air movement. No wheeze. HEART: S1, S2, with mechanical click and systolic murmur. ABDOMEN: Soft, nontender, nondistended. LOWER EXTREMITIES: No edema. Calves nontender. SKIN: Without rash. NEUROLOGIC: Nonfocal. LABS: White count 11.6, hematocrit 39, platelets 200. INR is 2.2. Venous lactate is 2.5. Sodium i s 136, potassium 4.2, chloride 101, bicarb 21, BUN 16, creatinine 0.9, glucose 161. Troponin 0.53, w hich is about his baseline. BNP is 3100, which is low for him. Chest x-ray interpreted by me, shows right airspace disease, perhaps improved in the lower lobes from November of this year, but worse in the upper lobes. EKG interpreted by me, shows a paced rhythm with PVCs, and left bundle branch block pattern. He is v entricular paced. Discussed the case with Dr. Matilda Montana, as well as Dr. Compa Siddiqui. ASSESSMENT/PLAN: This is a 76-year-old gentleman with multiple medical problems, presents with likel y aspiration event. 1. Aspiration event. The patient has previously failed a swallow evaluation, has not participated i n outpatient speech therapy, and is not on a restricted diet, making this consistent with aspiration pneumonia, he has grown out non-aeruginosa Pseudomonas in the past. I will treat him with cefepime. I think we can forego atypical coverage. We will make him n.p.o., have Speech Therapy see him. I w ill provide him with gentle IV fluids. 2. Heart failure. The patient is euvolemic to dry. 3. Coronary artery disease. We will continue the patient's current regimen. 4. Prosthetic valves. We will continue his current therapy with warfarin. 5. History of alcoholism, as I understand this is in remission. He has family at the bedside who co rroborate this. 6. Troponin, it is indeterminate and chronically so, we will not follow. 7. Code status: He is do not resuscitate. I did spend some time discussing with the patient and hi s daughter, who is not his medical power of estate planning attorney, that if he wishes to continue to eat without re strictions and not participate in speech therapy, then perhaps more hospice based approach is appropr iate with him. No decisions were made. 8. Chronic obstructive pulmonary disease. The patient is not on any specific medicines, as I recall he is a nonsmoker. We will follow. Steroids are not indicated. DISPOSITION: Inpatient status. /[id number]/MODL
[2017-02-14] MEDS: CLINDAMYCIN 600 MG/DEXTROSE 50 ML IV SCH ×2 (16:39→20:18)
[2017-02-14] MEDS: clonazePAM 0.5 MG TAB PO PRN (17:31)
[2017-02-14] MEDS: CARVEDILOL 3.125 MG TAB PO SCH (18:22)
--- NOTE | 2017-02-14 18:43 | GCON ---
[f rep st] CONSULTATION PULMONARY CRITICAL CARE CONSULTATION DATE OF CONSULTATION: 02/14/2017 REASON FOR CONSULTATION: Recurrent aspiration pneumonia. HISTORY: The patient is a 76-year-old who has a history of swallow dysfunction and previous aspirati on pneumonia. Over the last week or so, he has had problems with increased cough and mucus. He dete riorated this morning, with chills and weakness. He fell onto his outstretched left shoulder which h e has had surgery on in the past. He has had increased shoulder pain since. Secondary to his chills and weakness along with increasing shortness of breath and sputum production, he was brought to the emergency department. Chest x-ray shows increased changes consistent with recurrent pneumonia on the right side. There also appears to be a pleural effusion present on the right that was there 2 month s ago when he was hospitalized for pneumonia and sepsis. He has had subjective fevers. PAST MEDICAL HISTORY: Remarkable for chronic obstructive pulmonary disease, severe chronic systolic heart failure with an ejection fraction of 15%, a history of aortic valve replacement, anticoagulatio n, atrial fib/flutter, previous embolic stroke, reflux, and depression. HOME MEDICATIONS: Trazodone, Klonopin, Coumadin, thiamine, Flomax, Aldactone, Seroquel, Protonix and /or Prilosec, Remeron, Zestril, Neurontin, Lasix, folate, Proscar, iron, Plavix, Coreg and Lipitor. SOCIAL HISTORY: The patient smoked cigarettes in the past. Alcohol is denied. He is do not resusci reid per previous wishes. His daughter is apparently his medical proxy. FAMILY HISTORY: Heart disease. REVIEW OF SYSTEMS: He denies any acute chest pain, nausea or vomiting, significant swallow dysfuncti on, known aspiration, increasing lower extremity edema, etc. He does describe fevers. 10-point Review of Systems is negative except as mentioned above. PHYSICAL EXAMINATION: GENERAL: Reveals a gentleman who appears younger than his stated age. VITAL SIGNS: Blood pressure is 100/60, heart rate 100 and paced, respiratory rate is 20. He is febrile to 38 degrees. Nasal cannula oxygen is in place. HEENT: Unremarkable for lymphadenopathy or thyromeg veronique. There is no jugular venous distention. A nasal cannula is in place. CHEST: Reveals decreased breath sounds and excursions bilaterally with a prolonged expiratory phase. There are some coarse r ales at the right base and some bronchial/consolidative changes. HEART: Regular. A systolic murmur is present. ABDOMEN: Soft, nontender. There is no organomegaly. : There is no Pean catheter in place. EXTREMITIES: Unremarkable for edema, cords, or tenderness. SKIN: Without significant le sions or rash. NEUROLOGIC: Grossly nonfocal. He is oriented x3. DATABASE: Chest x-ray shows right-sided infiltrates, improved since his previous admission in the lo wer lung zones, worse in the mid upper chest, presumably the site of his new pneumonia. LABORATORY: White blood cell count 11,500, hematocrit 38.9, platelets are normal. INR is therapeuti c at 2.24. Lactate is 2.5, MVo2 87. Chemistries are within normal limits with the exception of a CO 2 mildly low at 21. Anion gap is 14. Glucose is 161, bilirubin 1.7. BNP is 3100. ASSESSMENT: 1. Recurrent right-sided pneumonia, presumably aspiration. Unfortunately, he did not get a followup chest x-ray after his pneumonia 2 months ago documenting resolution and a new baseline. It is thus difficult to say what is chronic and what is acute. He received clindamycin in the emergency departm ent as well as piperacillin. He is on cefepime currently. Clindamycin should be continued. Invanz may be an acceptable alternative. Bronchodilator therapy needs to be maintained with bronchopulmonar y therapies. A sputum culture will be requested. 2. History of congestive heart failure. This appears to be stable. Over-hydration needs to be avoi ded. He is not currently significantly hypotensive but will need to be followed closely. There is n o suggestion of an acute coronary syndrome or cardiac issue. Valves appear to be functioning appropr iately. 3. Left shoulder pain. He fell on his shoulder and has associated pain. An x-ray of the shoulder w ill be obtained. Appropriate pain control will be maintained. 4. The patient will be admitted to the intensive care unit initially. If he does well, he can be tr ansitioned to step-down unit and then to a floor bed. Bronchopulmonary therapies will be continued. Cefepime and clindamycin will be continued for now. Sputum culture will be obtained. Blood culture s will be awaited. Laboratory and chest x-ray will be followed. His usual outpatient medical regime n including anticoagulation will be maintained. 5. Further plans and recommendations will be made based on his progress over the next 12-24 hours. /[id number]/MODL
[2017-02-14] MEDS: FINASTERIDE 5 MG TAB PO SCH (20:13)
[2017-02-14] MEDS: traZODone 50 MG TAB PO SCH (20:13)
[2017-02-14] MEDS: GABAPENTIN 300 MG CAP PO SCH (20:13)
[2017-02-14] MEDS: TAMSULOSIN HCL 0.4 MG CAP PO SCH (20:14)
[2017-02-14] MEDS: MULTIVITAMINS 1 EACH TAB PO SCH (20:14)
[2017-02-14] MEDS: OMEGA-3 FATTY ACIDS 1,000 MG CAP PO SCH (20:14)
[2017-02-14] MEDS: QUEtiapine FUMARATE 200 MG TAB PO SCH (20:14)
[2017-02-14] MEDS: MIRTAZAPINE 30 MG TAB PO SCH (20:14)
[2017-02-14] MEDS: CEFEPIME HCL 1 GM in D5W 50 ML IV SCH (20:17)
[2017-02-14] MEDS ORDERED: QUETIAPINE FUMARATE 400 MG PO SCH (21:00)
[2017-02-14] MEDS ORDERED: NON-FORMULARY NEW DRUG (Mirtazapine [Remeron] 45 MG) PO SCH (21:00)
[2017-02-14] MEDS ORDERED: NON-FORMULARY NEW DRUG (Omeprazole [Prilosec 20 Mg] 20 MG) PO SCH (21:00)
[2017-02-14] MEDS ORDERED: WARFARIN SODIUM 7.5 MG TAB PO SCH (21:00)
[2017-02-14] MEDS: TEMAZEPAM 15 MG CAP PO PRN (21:15)
[2017-02-14] MEDS ORDERED: NS 500 ML IV ONE (23:26)
--- NOTE | 2017-02-15 00:02 | HOSPPROG ---
Hospitalist Progress Note Assessment/Plan: Hospitalist Night Crosscover Paged by RN regarding patient development of hypotension SBP 60s. Sleepy but still alert. Patient received evening sleep aids this evening. Patient HR 70s and paced. Admitted for asp pneumonia/sepsis. Gen - chronically ill appearing. fatgued but wakes to name. ENT - mucus membranes appear dry. Resp - Unlabored clear. CV - reg. 70s rate. 500 mls bolus NS ordered with appropriate response in BPs. Continue with IVF support increase rate to 150 mls/hr after bolus. monitor for si/sx CHF exacerbation but lungs clear at this time. 31 minutes total critical care time DOS 02/14/17, discussed with patient regarding pressor support if unresponsive to fluid and need for central access he was a little groggy but able to relay back current situation and need for pressors. Discussed procedure with patient daughter/JOSEPHINE Hurst on the phone along with OPHELIA Bauer. She is agreeable to patient wishes. He is DNR/DNI. Consent completed and put into chart if needed. -- Zeny Nuñez MD Objective: Vital Signs Temp Pulse Resp BP Pulse Ox 36.8 C 75 8 L 101/73 97 02/14/17 20:00 02/14/17 22:00 02/14/17 22:00 02/14/17 22:00 02/14/17 22:00 Microbiology 02/14/17 18:00 - Final Sputum, Expectorated 02/14/17 09:25 Respiratory Panel (PCR) - Final Nasal, Sinus - Swab No Organism Detected 02/13/17 02/14/17 02/15/17 05:59 05:59 05:59 Intake Total 523 Output Total 1605 Balance -1082 PT 24.6 SEC (12.0-15.0) H 02/14/17 09:07 INR 2.24 (0.83-1.16) H 02/14/17 09:07 ICD10 Worksheet Patient Problems: Problems Problem Status Onset Congestive cardiac failure Acute Hypoxia Acute Pneumonia Acute Sepsis Acute Acute chest pain Acute Acute respiratory failure Acute Alcoholic intoxication Acute CHRONIC DISEASE MANAGEMENTTransitional Care Acute COPD exacerbation Acute Cardiomyopathy Acute Chest pain Acute Elevated INR Acute Hypoxemia Acute Pneumonia involving right lung Acute Pre-syncope Acute Shortness of breath Acute Subtherapeutic anticoagulation Acute Systolic CHF, acute on chronic Acute Systolic congestive heart failure Acute Troponin level elevated Acute
[2017-02-15] MEDS ORDERED: NS 500 ML IV ONE (00:16)
[2017-02-15] MEDS ORDERED: NOREPINEPHRINE/NS 4 MG/500 ML BAG IV ONE (02:03)
[2017-02-15 02:29] LABS: PCO2 VENOUS 53 mmHg (40-44); PH VENOUS BLOOD 7.26 (7.31-7.42); PO2 VENOUS 87 mmHg (35-40); TCO2 VENOUS 24 mEq/L (23-27); VEN MEASURED OXYGEN SATURATION 94 % (65-75)
[2017-02-15] MEDS ORDERED: NOREPINEPHRINE/NS 500 ML IV SCH (02:30)
[2017-02-15] MEDS ORDERED: VASOPRESSIN/DEXTROSE 250 ML IV SCH (02:30)
[2017-02-15 02:41] LABS: APTT 51.4 SEC (23.0-38.0); INR 4.07 (0.83-1.16); PROTIME(PATIENT) 40.3 SEC (12.0-15.0)
[2017-02-15 02:50] LABS: ALBUMIN 3.3 g/dL (3.5-5.0); BILIRUBIN,TOTAL 1.3 mg/dL (0.1-1.4); BILIRUBIN-CONJUGATED 0.4 mg/dL (0.0-0.5); BILIRUBIN-UNCONJUGATED 0.9 mg/dL (0.0-1.1); TOTAL PROTEIN 5.6 g/dL (6.3-8.2)
--- NOTE | 2017-02-15 03:19 | POSTOPPROG ---
Post Op Note Date of Operation: 02/15/17 Surgeon: Roxana Cardenas Anesthesia: Local (Specify) (lidocaine) Pre-op Diagnosis: sepsis Post-op Diagnosis: sepsis Indication: 76 yo with sepsis - not responding to fluids Procedure: R US guided IJ Findings: could not thread wire on L Inf/Abcess present in the surg proc area at time of surgery?: No EBL: Minimal Specimen(s): none
[2017-02-15] MEDS: oxyCODONE IR 5 MG TAB PO PRN ×4 (04:07→21:44)
[2017-02-15 04:31] LABS: % IMMATURE GRANULYOCYTES 0.5 % (0.0-1.1); ABSOLUTE IMMATURE GRANULOCYTES 0.07 10^3/uL (0.00-0.10); ADD DIFF? NO; ADD MORPH? NO; ADD SCAN? NO; ATYPICAL LYMPHOCYTE FLAG 0 (0-99); FRAGMENT RBC FLAG 0 (0-99); HEMATOCRIT 35.4 % (40.0-51.0); HEMOGLOBIN 12.2 g/dL (13.7-17.5); LEFT SHIFT FLG 0 (0-99); LIPEMIA HEMOLYSIS FLAG 90 (0-99); MEAN CELL HEMOGLOBIN 33.2 pg (27.9-34.1); MEAN CELL HEMOGLOBIN CONCENTR. 34.5 g/dL (32.4-36.7); MEAN CELL VOLUME 96.2 fL (81.5-99.8); MEAN PLATELET VOLUME 9.8 fL (8.7-11.7); PLATELET CLUMPS FLAG 0 (0-99); PLATELET COUNT 155 10^3/uL (150-400); RED BLOOD CELL COUNT 3.68 10^6/uL (4.40-6.38); RED CELL DISTRIBUTION WIDTH 12.8 % (11.5-15.2)
[2017-02-15 04:49] LABS: ANION GAP 10 mEq/L (8-16); CALCIUM 8.3 mg/dL (8.5-10.4); CARBON DIOXIDE 22 mEq/l (22-31); CHLORIDE 105 mEq/L (97-110); GLOMERULAR FILTRATION RATE > 60; GLUCOSE 146 mg/dL (70-100); POTASSIUM 4.2 mEq/L (3.5-5.2); SODIUM 137 mEq/L (134-144)
[2017-02-15] MEDS: CLINDAMYCIN 600 MG/DEXTROSE 50 ML IV SCH ×3 (05:08→21:41)
[2017-02-15] MEDS: clonazePAM 0.5 MG TAB PO PRN ×2 (06:26→16:08)
[2017-02-15] MEDS: NS 1,000 ML IV SCH (06:34)
[2017-02-15] MEDS: CARVEDILOL 3.125 MG TAB PO SCH ×2 (09:06→17:07)
[2017-02-15] MEDS: LISINOPRIL 5 MG TAB PO SCH (10:08)
[2017-02-15] MEDS: PANTOPRAZOLE SODIUM 40 MG TAB PO SCH (10:11)
[2017-02-15] MEDS: CLOPIDOGREL BISULFATE 75 MG TAB PO SCH (10:12)
[2017-02-15] MEDS: CEFEPIME HCL 1 GM in D5W 50 ML IV SCH (10:18)
--- NOTE | 2017-02-15 13:35 | ASMTCMCOM ---
CM Note CM Note Notes: Patient is known to [facility] for frequent admissions d/t his PMH of COPD, CAD, CHF, alcoholism (in remission), and CVA. His recent admissions have dealt with aspiration pneumonia, which is the cause of this current admission. Because of the above, a palliative care consult has been scheduled with his children (he has 10) tomorrow at 11AM. CM will follow for discharge planning. Date Signed: 02/15/2017 01:34 PM Electronically Signed By:Paz Hirsch RN
--- NOTE | 2017-02-15 15:33 | PDINTPN ---
Sexton Helper Progress Note Assessment/Plan: Assessment: Recurrent aspiration pneumonia. Improving. Chest x-ray much better today. On bronchopulmonary therapies and antibiotics (cefepime and clindamycin) Severe sepsis: Resolving. Off norepinephrine. Swallow dysfunction, ongoing aspiration risk. Ischemic cardiomyopathy, severe. Valvular heart disease, status post replacements. No evidence of significant congestive heart failure and pulmonary edema currently. COPD History previous strokes Anticoagulation. Coumadin on hold. INR is 4 today, follow. GI: On pantoprazole. Present on admission. Metabolic: No significant issues identified. Nutrition: Eating, with swallowing precautions. Plan: Continue care in the intensive care unit for now. Can transfer to step- down unit status now that he is off of norepinephrine. Continue bronchopulmonary therapies and antibiotics. Can change to clindamycin alone at this point. Continue other medications. Follow laboratory, chest x-ray intermittently. 30 minutes of critical care time spent directly with patient. Discussed with hospitalist, nursing, respiratory therapy, social service director, and the ICU multi disciplinary team. Subjective: Doing well. Denies significant shortness of breath. Some phlegm but unable to cough up much. Left shoulder remains sore but feels better. Objective: Vital Signs Temp Pulse Resp BP Pulse Ox 36.3 C 55 L 20 109/53 L 95 02/15/17 09:00 02/15/17 15:00 02/15/17 15:00 02/15/17 15:00 02/15/17 15:00 Microbiology 02/14/17 18:00 - Final Sputum, Expectorated 02/14/17 09:25 Respiratory Panel (PCR) - Final Nasal, Sinus - Swab No Organism Detected Laboratory Results 02/15/17 04:15 02/15/17 04:15 02/14/17 02/15/17 02/16/17 05:59 05:59 05:59 Intake Total 3247 Output Total 2380 495 Balance 867 -495 PT 40.3 SEC (12.0-15.0) H 02/15/17 02:20 INR 4.07 (0.83-1.16) H 02/15/17 02:20 Laboratory Tests 02/15/17 02/15/17 02/15/17 02:20 02:20 04:15 PT 40.3 H INR 4.07 H APTT 51.4 H Calcium 8.3 L Total Bilirubin 1.3 AST 24 ALT 37 Albumin 3.3 L CXR: Significant improvement in right-sided infiltrates. Physical Exam - Physical Exam General Appearance: alert, no apparent distress, thin EENT: PERRL/EOMI, other (Nasal cannula at 2 L) Neck: normal inspection (No obvious jugular venous distension) Respiratory: lungs clear, decreased breath sounds, rales (Few rales on right), prolonged expiration, No rhonchi (Mild central congestion with cough), No wheezing Cardiac/Chest: systolic murmur, other (Irregular secondary to ectopy, paced.) Abdomen: normal bowel sounds, non-tender, soft Male Genitalia: other (Pena catheter removed) Skin: normal color, warm/dry Extremities: No pedal edema Neuro/Psych: no motor/sensory deficits, cognition abnormalities (Mild, chronic. No acute changes.) ICD10 Worksheet Patient Problems: Problems Problem Status Onset Congestive cardiac failure Acute Hypoxia Acute Palliative care encounter Acute Pneumonia Acute Sepsis Acute Acute chest pain Acute Acute respiratory failure Acute Alcoholic intoxication Acute CHRONIC DISEASE MANAGEMENTTransitional Care Acute COPD exacerbation Acute Cardiomyopathy Acute Chest pain Acute Elevated INR Acute Hypoxemia Acute Pneumonia involving right lung Acute Pre-syncope Acute Shortness of breath Acute Subtherapeutic anticoagulation Acute Systolic CHF, acute on chronic Acute Systolic congestive heart failure Acute Troponin level elevated Acute
--- NOTE | 2017-02-15 15:47 | HOSPPROG ---
Hospitalist Progress Note Assessment/Plan: 76 yo M with hx of chronic aspiration and recurrent aspiration pna, VHD, CAD, COPD as well as prior heavy etoh abuse presenting with aspiration pna # aspiration pna: on personal review of cxr noted to have extensive right sided consolidation in the setting of chronic aspiration and poor compliance with dietary restrictions. Currently being treated with clinda and cefepime. Patient notes that he is feeling better. # chronic dysphagia: patient has had issues with chronic dysphagia and recurrent aspiration but is not compliant with speech recommendations in terms of dietary modification. He has stated that he is interested in doing less, and family agrees--will ask palliative to get involved. 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 Old records reviewed and summarized as above. Care plan reviewed with Dr. Siddiqui and multidisciplinary care team. Subjective: no significant overnight events, patient is currently feeling better than when he came in Objective: Vital Signs Temp Pulse Resp BP Pulse Ox 36.3 C 55 L 20 109/53 L 95 02/15/17 09:00 02/15/17 15:00 02/15/17 15:00 02/15/17 15:00 02/15/17 15:00 Microbiology 02/14/17 18:00 - Final Sputum, Expectorated 02/14/17 09:25 Respiratory Panel (PCR) - Final Nasal, Sinus - Swab No Organism Detected Laboratory Results 02/15/17 04:15 02/15/17 04:15 02/14/17 02/15/17 02/16/17 05:59 05:59 05:59 Intake Total 3247 Output Total 2380 495 Balance 867 -495 PT 40.3 SEC (12.0-15.0) H 02/15/17 02:20 INR 4.07 (0.83-1.16) H 02/15/17 02:20 awake alert anicteric op clear rrr no mrg dec bs no cce warm dry well perfused oriented appropriate ICD10 Worksheet Patient Problems: Problems Problem Status Onset Systolic CHF, acute on chronic Acute Chest pain Acute CHRONIC DISEASE MANAGEMENTTransitional Care Acute Hypoxemia Acute Pre-syncope Acute Cardiomyopathy Acute Alcoholic intoxication Acute Troponin level elevated Acute Elevated INR Acute Shortness of breath Acute Pneumonia Acute Acute chest pain Acute Acute respiratory failure Acute Pneumonia involving right lung Acute Systolic congestive heart failure Acute COPD exacerbation Acute Subtherapeutic anticoagulation Acute Congestive cardiac failure Acute Hypoxia Acute Sepsis Acute
[2017-02-15] MEDS: traZODone 50 MG TAB PO SCH (20:00)
[2017-02-15] MEDS: MIRTAZAPINE 30 MG TAB PO SCH (20:00)
[2017-02-15] MEDS: GABAPENTIN 300 MG CAP PO SCH (20:00)
[2017-02-15] MEDS: TEMAZEPAM 15 MG CAP PO PRN (20:00)
[2017-02-15] MEDS: TAMSULOSIN HCL 0.4 MG CAP PO SCH (20:00)
[2017-02-15] MEDS: OMEGA-3 FATTY ACIDS 1,000 MG CAP PO SCH (20:00)
[2017-02-15] MEDS: FINASTERIDE 5 MG TAB PO SCH (20:00)
[2017-02-15] MEDS: MULTIVITAMINS 1 EACH TAB PO SCH (20:01)
[2017-02-15] MEDS: QUEtiapine FUMARATE 200 MG TAB PO SCH (20:06)
[2017-02-15] MEDS ORDERED: WARFARIN SODIUM 5 MG TAB PO SCH (21:00)
[2017-02-15] MEDS ORDERED: VANCOMYCIN HCL/NORMAL SALINE 250 ML IV ONE (21:14)
[2017-02-16 04:16] LABS: % IMMATURE GRANULYOCYTES 0.3 % (0.0-1.1); ABSOLUTE IMMATURE GRANULOCYTES 0.04 10^3/uL (0.00-0.10); ADD DIFF? NO; ADD MORPH? NO; ADD SCAN? NO; ATYPICAL LYMPHOCYTE FLAG 10 (0-99); FRAGMENT RBC FLAG 0 (0-99); HEMATOCRIT 34.3 % (40.0-51.0); HEMOGLOBIN 11.5 g/dL (13.7-17.5); LEFT SHIFT FLG 0 (0-99); LIPEMIA HEMOLYSIS FLAG 80 (0-99); MEAN CELL HEMOGLOBIN CONCENTR. 33.5 g/dL (32.4-36.7); MEAN CELL VOLUME 98.6 fL (81.5-99.8); MEAN PLATELET VOLUME 9.7 fL (8.7-11.7); PLATELET CLUMPS FLAG 0 (0-99); PLATELET COUNT 149 10^3/uL (150-400); RED BLOOD CELL COUNT 3.48 10^6/uL (4.40-6.38); RED CELL DISTRIBUTION WIDTH 13.2 % (11.5-15.2)
[2017-02-16 04:35] LABS: PROTIME(PATIENT) 60.7 SEC (12.0-15.0)
[2017-02-16 04:40] LABS: INR 6.8 (0.83-1.16)
[2017-02-16 04:42] LABS: ANION GAP 9 mEq/L (8-16); CALCIUM 8.3 mg/dL (8.5-10.4); CARBON DIOXIDE 24 mEq/l (22-31); CHLORIDE 106 mEq/L (97-110); CREATININE 0.8 mg/dL (0.7-1.3); GLOMERULAR FILTRATION RATE > 60; GLUCOSE 96 mg/dL (70-100); MAGNESIUM 2.1 mg/dL (1.6-2.3); POTASSIUM 4.3 mEq/L (3.5-5.2); SODIUM 139 mEq/L (134-144)
[2017-02-16] MEDS: CLINDAMYCIN 600 MG/DEXTROSE 50 ML IV SCH ×3 (06:06→21:08)
[2017-02-16] MEDS: CARVEDILOL 3.125 MG TAB PO SCH ×2 (07:04→17:31)
[2017-02-16] MEDS: oxyCODONE IR 5 MG TAB PO PRN ×2 (07:05→17:34)
[2017-02-16] MEDS ORDERED: VANCOMYCIN HCL/NORMAL SALINE 250 ML IV SCH (09:00)
[2017-02-16] MEDS: CLOPIDOGREL BISULFATE 75 MG TAB PO SCH (09:31)
[2017-02-16] MEDS: LISINOPRIL 5 MG TAB PO SCH (09:31)
[2017-02-16] MEDS: PANTOPRAZOLE SODIUM 40 MG TAB PO SCH (09:31)
[2017-02-16] MEDS: clonazePAM 0.5 MG TAB PO PRN ×2 (09:35→17:36)
--- NOTE | 2017-02-16 14:03 | PDINTPN ---
Tattoo Designer Progress Note Assessment/Plan: Assessment: Recurrent aspiration pneumonia. Improving. Chest x-ray much better yesterday. On bronchopulmonary therapies and clindamycin. Severe sepsis: Resolved. Off norepinephrine. Coag-negative staph has come up on blood culture in 1 of 2 bottles. May be a contaminant. On vancomycin. Will await further identification and sensitivities. Swallow dysfunction, ongoing aspiration risk for thin liquids. Speech therapy involved, recommendations are being reinforced. Ischemic cardiomyopathy, severe. Valvular heart disease, status post replacements. No evidence of significant congestive heart failure and pulmonary edema currently. COPD History previous strokes Anticoagulation. Coumadin on hold. INR is 6 today, follow. No evidence of bleeding GI: On pantoprazole. Present on admission. Metabolic: No significant issues identified. Nutrition: Eating, with swallowing precautions. Plan: Can transfer to PCU. Continue bronchopulmonary therapies and antibiotics. Await further ID and sensitivities on Coag-neg Staph. Continue other medications. Follow laboratory, chest x-ray intermittently. For palliative care consultation today. Increase activities as tolerated. Continue to work with patient regarding speech therapy recommendations to prevent aspiration. Will repeat chest x-ray tomorrow: Two-view. 30 minutes of critical care time spent directly with the patient. Discussed with nursing, hospitalist, respiratory, social work job titles, and the ICU multi disciplinary team. Subjective: Doing well. Denies shortness of breath however he is coughing and bringing up more mucus. Denies pain, denies problems eating. Objective: Vital Signs Temp Pulse Resp BP Pulse Ox 36.7 C 93 20 98/51 L 94 02/16/17 08:00 02/16/17 11:35 02/16/17 11:35 02/16/17 11:35 02/16/17 11:35 Microbiology 02/14/17 18:00 - Final Sputum, Expectorated Sputum Culture - Final Laboratory Results 02/16/17 04:10 02/16/17 04:10 02/15/17 02/16/17 02/17/17 05:59 05:59 05:59 Intake Total 3247 2126 Output Total 2380 1095 400 Balance 867 1031 -400 PT 60.7 SEC (12.0-15.0) H D 02/16/17 04:10 INR 6.80 (0.83-1.16) H* 02/16/17 04:10 Laboratory Tests 02/16/17 02/16/17 04:10 04:10 PT 60.7 H D INR 6.80 H* Calcium 8.3 L Phosphorus 2.9 Magnesium 2.1 Physical Exam - Physical Exam General Appearance: alert, no apparent distress, other ( Sitting up on the side of his bed, putting is contact) EENT: PERRL/EOMI, other ( nasal cannula at 2 L) Neck: normal inspection (o JVD) Respiratory: lungs clear ( anteriorly), decreased breath sounds ( at bases), rhonchi ( present centrally with cough), wheezing ( mild), prolonged expiration Cardiac/Chest: regular rate, rhythm ( paced) Abdomen: normal bowel sounds, non-tender, soft Skin: normal color, warm/dry Extremities: pedal edema ( trace) Neuro/Psych: no motor/sensory deficits ( moves all extremities equally), No cognition abnormalities ( oriented, can be forgetful at times) ICD10 Worksheet Patient Problems: Problems Problem Status Onset Congestive cardiac failure Acute Hypoxia Acute Palliative care encounter Acute Pneumonia Acute Sepsis Acute Acute chest pain Acute Acute respiratory failure Acute Alcoholic intoxication Acute CHRONIC DISEASE MANAGEMENTTransitional Care Acute COPD exacerbation Acute Cardiomyopathy Acute Chest pain Acute Elevated INR Acute Hypoxemia Acute Pneumonia involving right lung Acute Pre-syncope Acute Shortness of breath Acute Subtherapeutic anticoagulation Acute Systolic CHF, acute on chronic Acute Systolic congestive heart failure Acute Troponin level elevated Acute
--- NOTE | 2017-02-16 14:15 | ASMTCMCOM ---
CM Note CM Note Notes: Met w/pt and children. Discussed dc poc. They are hoping to do speech therapy consistently for while. They would like to start with [facility] sp services. Notified Polly at [facility]. As of now, pt will have HHC RN, SP, possibly PT if needed. Conf address and discussed homebound status for [facility]. Pt seems to have very supportive children; becky Hurst ([phone]), would like to be kept in loop of dc plan. MIN w/f. Date Signed: 02/16/2017 02:15 PM Electronically Signed By:Nallely Garza, RN
--- NOTE | 2017-02-16 17:42 | HOSPPROG ---
Hospitalist Progress Note Assessment/Plan: 76 yo M with hx of chronic aspiration and recurrent aspiration pna, VHD, CAD, COPD as well as prior heavy etoh abuse presenting with aspiration pna # aspiration pna: on personal review of cxr noted to have extensive right sided consolidation in the setting of chronic aspiration and poor compliance with dietary restrictions. Currently being treated with clinda and improving clinically. ACCOUNTING ANALYST following. # chronic dysphagia: patient has had issues with chronic dysphagia and recurrent aspiration but is not compliant with speech recommendations in terms of dietary modification. 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 Siddiqui and multidisciplinary care team. Subjective: no significant overnight events, patient very eager to dc home, slightly frustrated being in hospital Objective: Vital Signs Temp Pulse Resp BP Pulse Ox 36.8 C 94 20 117/73 90 L 02/16/17 16:00 02/16/17 17:31 02/16/17 16:00 02/16/17 17:31 02/16/17 16:00 Microbiology 02/14/17 18:00 - Final Sputum, Expectorated Sputum Culture - Final Laboratory Results 02/16/17 04:10 02/16/17 04:10 02/15/17 02/16/17 02/17/17 05:59 05:59 05:59 Intake Total 3247 2126 Output Total 2380 1095 400 Balance 867 1031 -400 PT 60.7 SEC (12.0-15.0) H D 02/16/17 04:10 INR 6.80 (0.83-1.16) H* 02/16/17 04:10 awake alert anicteric op clear rrr no mrg dec bs no cce warm dry well perfused oriented appropriate ICD10 Worksheet Patient Problems: Problems Problem Status Onset Congestive cardiac failure Acute Hypoxia Acute Pneumonia Acute Sepsis Acute Acute chest pain Acute Acute respiratory failure Acute Alcoholic intoxication Acute CHRONIC DISEASE MANAGEMENTTransitional Care Acute COPD exacerbation Acute Cardiomyopathy Acute Chest pain Acute Elevated INR Acute Hypoxemia Acute Pneumonia involving right lung Acute Pre-syncope Acute Shortness of breath Acute Subtherapeutic anticoagulation Acute Systolic CHF, acute on chronic Acute Systolic congestive heart failure Acute Troponin level elevated Acute
--- NOTE | 2017-02-16 20:28 | PDPCPN ---
Palliative Care Progress Note Assessment/Plan: Referring provider: Dr Mcknight Reason for consult: Complex medical decision making Symptom control HPI: Frandy Mckeon is a 76 yo male with PMH ETOH (remission 2010), CAD, CHF ( EF 15%), COPD, mech valve, and recurrent asp PNa admitted to the hospital for increased resp distress. Found to have repeated asp PNA with known dysphagia needing nectar thick liquids. Recent admission November 2016 went home with [facility]. Palliative care consulted for complex medical decision making. Met with Lourdes and 5 of his 10 children at the bedside this morning. Lourdes discussed he is feeling much better and ready to go home. His family described after last hospitalization he did follow instructions and was compliant for about 2 weeks and then went back to his normal routine of thin liquids. They feel physically he improved close back to his baseline. Lourdes states he often is forgetful and forgets that he is supposed to follow strict dietary guidelines. His family tries to remember to remind him but they are not around 24/7. lourdes enjoys doing activities in his long-term building. He understands the restrictions but also feels it is too much for him to handle. We discussed options including hospice care if he continues to drink thin liquids and has repeated asp PNA. He is not sure he is ready for hospice care as he doesn't mind coming back to the hospital and wants to be around for his 2 teenagers. Assessment: Physical: - Pain: none -tylenol PRN - Dyspnea: at times - oxygen as needed - fan for subjective dyspnea - nebs if needed - dysphagia - speech following - nectar thick liquids Emotional/psychological: has a lot of support from family Advanced Care Planning: Is patient decisional?: yes Code Status: DNR POA: Daughter Sallie is MDPOA. Plan: Wants to continue with repeated hospitalizations for now. has information for hospice if wanted in the future. CM working with [facility] vs outpt therapy. Subjective: I'm ready to go home Objective: Social History: Lives in long-term alone. Has 10 children, oldest is Sallie. youngest 2 are still in high school. Enjoys watching tv and being social. Medication list reviewed ROS: General: fatigue, weakness ENT: dysphagia Resp: dyspnea, cough GI: negative : negative MS: negative Skin: negative Neuro: some memory loss Psych: negative Functional assessment: PPS: 60% Functional status: mostly independent Vital Signs Temp Pulse Resp BP Pulse Ox 37.2 C 77 20 97/53 L 92 02/16/17 19:56 02/16/17 19:56 02/16/17 19:56 02/16/17 19:56 02/16/17 19:56 Microbiology 02/14/17 18:00 - Final Sputum, Expectorated Sputum Culture - Final Laboratory Results 02/16/17 04:10 02/16/17 04:10 02/15/17 02/16/17 02/17/17 05:59 05:59 05:59 Intake Total 3247 2126 360 Output Total 2380 1095 460 Balance 867 1031 -100 PT 60.7 SEC (12.0-15.0) H D 02/16/17 04:10 INR 6.80 (0.83-1.16) H* 02/16/17 04:10 Physical Exam - Physical Exam General Appearance: alert, no apparent distress Respiratory: decreased breath sounds, No respiratory distress, No accessory muscle use Skin: normal color, warm/dry Extremities: No pedal edema Neuro/Psych: alert, oriented x 3 ICD10 Worksheet Patient Problems: Problems Problem Status Onset Congestive cardiac failure Acute Hypoxia Acute Palliative care encounter Acute Pneumonia Acute Sepsis Acute Acute chest pain Acute Acute respiratory failure Acute Alcoholic intoxication Acute CHRONIC DISEASE MANAGEMENTTransitional Care Acute COPD exacerbation Acute Cardiomyopathy Acute Chest pain Acute Elevated INR Acute Hypoxemia Acute Pneumonia involving right lung Acute Pre-syncope Acute Shortness of breath Acute Subtherapeutic anticoagulation Acute Systolic CHF, acute on chronic Acute Systolic congestive heart failure Acute Troponin level elevated Acute - ICD10 Problem Qualifiers (1) Palliative care encounter
[2017-02-16] MEDS: GABAPENTIN 300 MG CAP PO SCH (21:07)
[2017-02-16] MEDS: QUEtiapine FUMARATE 200 MG TAB PO SCH (21:07)
[2017-02-16] MEDS: traZODone 50 MG TAB PO SCH (21:07)
[2017-02-16] MEDS: TAMSULOSIN HCL 0.4 MG CAP PO SCH (21:08)
[2017-02-16] MEDS: OMEGA-3 FATTY ACIDS 1,000 MG CAP PO SCH (21:08)
[2017-02-16] MEDS: FINASTERIDE 5 MG TAB PO SCH (21:08)
[2017-02-16] MEDS: MULTIVITAMINS 1 EACH TAB PO SCH (21:08)
[2017-02-16] MEDS: MIRTAZAPINE 30 MG TAB PO SCH (21:10)
[2017-02-17 04:51] LABS: % IMMATURE GRANULYOCYTES 0.5 % (0.0-1.1); ABSOLUTE IMMATURE GRANULOCYTES 0.04 10^3/uL (0.00-0.10); ADD DIFF? NO; ADD MORPH? NO; ADD SCAN? NO; ATYPICAL LYMPHOCYTE FLAG 0 (0-99); FRAGMENT RBC FLAG 0 (0-99); HEMOGLOBIN 9.7 g/dL (13.7-17.5); LEFT SHIFT FLG 0 (0-99); LIPEMIA HEMOLYSIS FLAG 80 (0-99); MEAN CELL HEMOGLOBIN 33.4 pg (27.9-34.1); MEAN CELL HEMOGLOBIN CONCENTR. 33.4 g/dL (32.4-36.7); MEAN PLATELET VOLUME 9.7 fL (8.7-11.7); PLATELET CLUMPS FLAG 0 (0-99); PLATELET COUNT 115 10^3/uL (150-400); RED CELL DISTRIBUTION WIDTH 13.2 % (11.5-15.2)
[2017-02-17 04:57] LABS: INR 4.51 (0.83-1.16); PROTIME(PATIENT) 43.7 SEC (12.0-15.0)
[2017-02-17] MEDS ORDERED: NS 1,000 ML IV SCH (05:00)
[2017-02-17 05:06] LABS: ANION GAP 6 mEq/L (8-16); CALCIUM 8.1 mg/dL (8.5-10.4); CARBON DIOXIDE 25 mEq/l (22-31); CHLORIDE 106 mEq/L (97-110); CREATININE 0.9 mg/dL (0.7-1.3); GLOMERULAR FILTRATION RATE > 60; GLUCOSE 97 mg/dL (70-100); POTASSIUM 4.3 mEq/L (3.5-5.2); SODIUM 137 mEq/L (134-144)
[2017-02-17] MEDS: CLINDAMYCIN 600 MG/DEXTROSE 50 ML IV SCH ×2 (06:40→14:55)
[2017-02-17] MEDS: NS 1,000 ML IV SCH (06:41)
[2017-02-17] MEDS: CARVEDILOL 3.125 MG TAB PO SCH (09:32)
[2017-02-17] MEDS: LISINOPRIL 5 MG TAB PO SCH (09:33)
[2017-02-17] MEDS: PANTOPRAZOLE SODIUM 40 MG TAB PO SCH (10:37)
[2017-02-17] MEDS: CLOPIDOGREL BISULFATE 75 MG TAB PO SCH (10:38)
[2017-02-17] MEDS: clonazePAM 0.5 MG TAB PO PRN (10:40)
[2017-02-17] MEDS: oxyCODONE IR 5 MG TAB PO PRN (10:41)
[2017-02-17] MEDS: ACETAMINOPHEN 325 MG TAB PO PRN (15:04)
[2017-02-17] MEDS ORDERED: VANCOMYCIN HCL/NORMAL SALINE 250 ML IV SCH (15:30)
[2017-02-17] MEDS: PIPERACILLIN/TAZO 4.5 GM/DEX 100 ML IV SCH ×3 (16:04→23:09)
[2017-02-17 16:07] LABS: BASE EXCESS -2.4 mEq/L (-2.5-2.5); BICARBONATE 21 mEq/L (22-26); MEASURED OXYGEN SATURATION 94 % (92-95); PCO2 32 mmHg (34-38); PO2 74 mmHg (65-75); TCO2 22 mEq/L (23-27)
--- NOTE | 2017-02-17 16:38 | SOAPPROG ---
SOAP Progress Note Assessment/Plan: Assessment: Recurrent aspiration pneumonia. Worse today. Chest x-ray shows new infiltrate on the left and worsening on the right: Query recurrent silent aspiration. Congestive heart failure/pulmonary edema may also be playing a role. On bronchopulmonary therapies and clindamycin/vancomycin. O2 needs increased, remains congested. ABG fine. Severe sepsis: Resolved. Off norepinephrine. Coag-negative staph has come up on blood culture in 1 of 2 bottles, probably a contaminant. On vancomycin. This can probably be stopped. Swallow dysfunction, ongoing aspiration risk for thin liquids. Speech therapy involved, recommendations are being reinforced. Abnormal mental status. Etiology unclear. Progressively worse this today. Not related to CO2 retention. Medications may be related? Received oxycodone but much earlier. On anticoagulation, consider intercerebral hemorrhage but doubt. CT scan to be obtained. Ischemic cardiomyopathy, severe. Valvular heart disease, status post replacements. No evidence of significant congestive heart failure and pulmonary edema. COPD History previous strokes Anticoagulation. Coumadin on hold. INR coming down today, 4.5, follow. No evidence of bleeding GI: On pantoprazole. Present on admission. Metabolic: No significant issues identified. Nutrition: Eating, with swallowing precautions. Plan: CT scan of the head would be indicated as he is on anticoagulation. Lasix, 40 mg x1 now. Continue bronchopulmonary therapies and antibiotics. Can DC vancomycin. Continue other medications. Follow laboratory, chest x-ray. Continue to work with patient regarding speech therapy recommendations to prevent aspiration as mental status allows. Subjective: More confused. Verbal responses difficult to understand. On increased oxygen: 5 L. Objective: Vital Signs Temp Pulse Resp BP Pulse Ox 38.4 C H 72 24 H 123/70 H 92 02/17/17 14:58 02/17/17 14:58 02/17/17 14:58 02/17/17 14:58 02/17/17 14:58 Microbiology 02/14/17 18:00 - Final Sputum, Expectorated Sputum Culture - Final Laboratory Results 02/17/17 04:35 02/17/17 04:35 02/16/17 02/17/17 02/18/17 05:59 05:59 05:59 Intake Total 2126 360 Output Total 1095 660 200 Balance 1031 -300 -200 PT 43.7 SEC (12.0-15.0) H D 02/17/17 04:35 INR 4.51 (0.83-1.16) H 02/17/17 04:35 Laboratory Tests 02/17/17 15:45 pCO2 32 L pO2 74 ABG pH 7.43 Total O2 Concentration 5.0 CXR: Right infiltrate persists, no worse. New left upper lobe infiltrate. Small effusions present. Physical Exam - Physical Exam General Appearance: other (Confused, somewhat somnolent), No alert EENT: PERRL/EOMI, other (Nasal cannula in place at 5 L) Neck: normal inspection (No obvious JVD) Respiratory: decreased breath sounds, rales (Few scattered rales at bases), rhonchi (Centrally with cough), wheezing (Mild) Cardiac/Chest: regular rate, rhythm (Paced) Abdomen: normal bowel sounds, non-tender, soft Skin: warm/dry, pallor Extremities: pedal edema (Trace +) Neuro/Psych: no motor/sensory deficits (Moves all extremities equally), cognition abnormalities (Confused, more lethargic) ICD10 Worksheet Patient Problems: Problems Problem Status Onset Systolic CHF, acute on chronic Acute Chest pain Acute CHRONIC DISEASE MANAGEMENTTransitional Care Acute Hypoxemia Acute Pre-syncope Acute Cardiomyopathy Acute Alcoholic intoxication Acute Troponin level elevated Acute Elevated INR Acute Shortness of breath Acute Pneumonia Acute Acute chest pain Acute Acute respiratory failure Acute Pneumonia involving right lung Acute Systolic congestive heart failure Acute COPD exacerbation Acute Subtherapeutic anticoagulation Acute Congestive cardiac failure Acute Hypoxia Acute Sepsis Acute Palliative care encounter Acute
[2017-02-17] MEDS ORDERED: FUROSEMIDE 40 MG/4 ML VIAL IVP ONE (16:53)
--- NOTE | 2017-02-17 17:53 | HOSPPROG ---
Hospitalist Progress Note Assessment/Plan: Assessment/Plan: 76 yo M with hx of chronic aspiration and recurrent aspiration pna, c/b acute encephalopathy 2/2 HCAP # aspiration pna: appears to be acutely worsening today w/ BELINDA infiltrate on CXR (personally interpreted), coughing on his own secretions, I believe he continues to aspirate - d/w SENIOR SALES MANAGER, agree to keep strict NPO, cont to reassess over weekend - adjust Abx to cover Pseudomonas (present on previous sputum Cx) and possible MRSA, Vanco/Zosyn D#06/04 - sputum Cx if able # chronic dysphagia: patient has had issues with chronic dysphagia and recurrent aspiration but is not compliant with speech recommendations in terms of dietary modification - palliative consult appreciated, patient opted for aggressive tx course # coag neg staph contaminent: 1/2 BCx, not active infxn # acute encephalopathy: new problem, further w/u indicated. evidenced by global brain dysfunction characterized by disorientation (AAOx1), inability to follow most commands, somnolence, confusion, all of which is acute change from day prior, likely 2/2 toxic effects of infxn and hypotension - d/w Dr. 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 NPO ppx. on coumadin code. DNR dispo. ADD uncertain, worsening today Subjective: disoriented, somnolent today Objective: Vital Signs Temp Pulse Resp BP Pulse Ox 36.9 C 72 24 H 123/70 H 92 02/17/17 17:31 02/17/17 14:58 02/17/17 14:58 02/17/17 14:58 02/17/17 14:58 Laboratory Results 02/17/17 04:35 02/17/17 04:35 02/16/17 02/17/17 02/18/17 05:59 05:59 05:59 Intake Total 2126 360 Output Total 1095 660 200 Balance 1031 -300 -200 PT 43.7 SEC (12.0-15.0) H D 02/17/17 04:35 INR 4.51 (0.83-1.16) H 02/17/17 04:35 - Physical Exam Constitutional: no apparent distress, not in pain, chronically ill appearing, No uncomfortable Cardiovascular: systolic murmur (II/ sternum), No irregularly irregular, No tachycardia, No edema Respiratory: rhonchi (on insp bilat), No expiratory wheeze, No bronchial breath sounds, No respiratory distress Gastrointestinal: normoactive bowel sounds, soft, non-tender abdomen, no palpable masses, No distension Neurologic: other (AAOx1 (person only)), No facial droop Psychiatric: not anxious, encephalopathic, poor insight, poor judgement, poor memory, No agitated ICD10 Worksheet Patient Problems: Problems Problem Status Onset Congestive cardiac failure Acute Hypoxia Acute Palliative care encounter Acute Pneumonia Acute Sepsis Acute Acute chest pain Acute Acute respiratory failure Acute Alcoholic intoxication Acute CHRONIC DISEASE MANAGEMENTTransitional Care Acute COPD exacerbation Acute Cardiomyopathy Acute Chest pain Acute Elevated INR Acute Hypoxemia Acute Pneumonia involving right lung Acute Pre-syncope Acute Shortness of breath Acute Subtherapeutic anticoagulation Acute Systolic CHF, acute on chronic Acute Systolic congestive heart failure Acute Troponin level elevated Acute
[2017-02-17] MEDS: FINASTERIDE 5 MG TAB PO SCH (20:30)
[2017-02-17] MEDS: QUEtiapine FUMARATE 200 MG TAB PO SCH (20:31)
[2017-02-17] MEDS: OMEGA-3 FATTY ACIDS 1,000 MG CAP PO SCH (20:31)
[2017-02-17] MEDS: MIRTAZAPINE 30 MG TAB PO SCH (20:31)
[2017-02-17] MEDS: GABAPENTIN 300 MG CAP PO SCH (20:31)
[2017-02-17] MEDS: TAMSULOSIN HCL 0.4 MG CAP PO SCH (20:31)
[2017-02-17] MEDS: traZODone 50 MG TAB PO SCH (20:31)
[2017-02-17] MEDS: MULTIVITAMINS 1 EACH TAB PO SCH (20:31)
[2017-02-18] MEDS: PIPERACILLIN/TAZO 4.5 GM/DEX 100 ML IV SCH ×4 (06:00→23:42)
[2017-02-18 06:25] LABS: % IMMATURE GRANULYOCYTES 0.4 % (0.0-1.1); ABSOLUTE IMMATURE GRANULOCYTES 0.04 10^3/uL (0.00-0.10); ADD DIFF? NO; ADD MORPH? NO; ADD SCAN? NO; ATYPICAL LYMPHOCYTE FLAG 0 (0-99); FRAGMENT RBC FLAG 0 (0-99); HEMATOCRIT 29.9 % (40.0-51.0); HEMOGLOBIN 9.9 g/dL (13.7-17.5); LEFT SHIFT FLG 0 (0-99); LIPEMIA HEMOLYSIS FLAG 80 (0-99); MEAN CELL HEMOGLOBIN 32.6 pg (27.9-34.1); MEAN CELL HEMOGLOBIN CONCENTR. 33.1 g/dL (32.4-36.7); MEAN CELL VOLUME 98.4 fL (81.5-99.8); MEAN PLATELET VOLUME 10.2 fL (8.7-11.7); PLATELET CLUMPS FLAG 0 (0-99); PLATELET COUNT 124 10^3/uL (150-400); RED BLOOD CELL COUNT 3.04 10^6/uL (4.40-6.38)
[2017-02-18 06:38] LABS: INR 3.61 (0.83-1.16); PROTIME(PATIENT) 36.6 SEC (12.0-15.0)
[2017-02-18 06:48] LABS: ALANINE AMINOTRANSFERASE 58 IU/L (21-72); ALBUMIN 2.9 g/dL (3.5-5.0); ALKALINE PHOSPHATASE 68 IU/L (38-126); ANION GAP 8 mEq/L (8-16); ASPARTATE AMINOTRANSFERASE 56 IU/L (17-59); BILIRUBIN,TOTAL 2.3 mg/dL (0.1-1.4); CALCIUM 8.3 mg/dL (8.5-10.4); CARBON DIOXIDE 26 mEq/l (22-31); CHLORIDE 104 mEq/L (97-110); CREATININE 0.9 mg/dL (0.7-1.3); GLOMERULAR FILTRATION RATE > 60; GLUCOSE 91 mg/dL (70-100); POTASSIUM 3.6 mEq/L (3.5-5.2); SODIUM 138 mEq/L (134-144); TOTAL PROTEIN 5.1 g/dL (6.3-8.2)
[2017-02-18 06:54] LABS: BILIRUBIN-CONJUGATED 0.7 mg/dL (0.0-0.5); BILIRUBIN-UNCONJUGATED 1.6 mg/dL (0.0-1.1)
[2017-02-18] MEDS ORDERED: FUROSEMIDE 40 MG/4 ML VIAL IVP ONE (10:09)
--- NOTE | 2017-02-18 10:15 | HOSPPROG ---
Hospitalist Progress Note Assessment/Plan: Assessment/Plan: 76 yo M with hx of chronic aspiration and recurrent aspiration pna, c/b acute encephalopathy 2/2 HCAP # aspiration pna: appears to be persistent w/ BELINDA infiltrate on CXR (personally interpreted), coughing on his own secretions, he likely continues to aspirate despite diet precautions - d/w BOARD HAMMER OPERATOR, agree to keep strict NPO w/ regular reassessments this weekend, has potential to perform better today given improvement in his mental status - adjusted Abx to cover Pseudomonas (present on previous sputum Cx) and possible MRSA, Vanco/Zosyn D#07/05 - sputum Cx # chronic dysphagia: patient has had issues with chronic dysphagia and recurrent aspiration but is not compliant with speech recommendations in terms of dietary modification - palliative consult appreciated, patient opted for aggressive tx course # coag neg staph contaminent: 1/2 BCx, not active infxn # acute encephalopathy: evidenced by global brain dysfunction characterized by disorientation (AAOx1), inability to follow most commands, somnolence, confusion , all of which is acute change from day prior, likely 2/2 toxic effects of infxn and hypotension - improving today w/ tx for HCAP and diuretics - HCT no ICH - ABG no retention # acute respiratory failure: evidenced by SpO2 70% on 10L high flow, increased to 15LPM, respiratory distress on presentation, 2/2 aspiration PNA, d/w patient , he was NOT on supplemental oxygen prior to presentation - cont 5LPM, intermittently 88% - introduce mucinex w/ ongoing cough, pulm hygiene ordered # acute on chronic systolic heart failure: with EF of 15%, appears to be worsening w/ RLL pleural effusion - net neg 1L o/n - holding ACEi given hypotension - another dose lasix today, gauge effect # 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 NPO, BOARD HAMMER OPERATOR eval ppx. on coumadin code. DNR dispo. ADD uncertain, severely ill High medical complexity patient, high risk of worsening morbidity/mortality, 2/ 2 above. Subjective: patient reports improvement in mentation o/n Objective: Vital Signs Temp Pulse Resp BP Pulse Ox 36.4 C 73 24 H 101/60 88 L 02/18/17 07:57 02/18/17 07:57 02/18/17 07:57 02/18/17 07:57 02/18/17 07:57 Laboratory Results 02/18/17 05:45 02/18/17 05:45 02/17/17 02/18/17 02/19/17 05:59 05:59 05:59 Intake Total 360 1350 Output Total 660 2350 Balance -300 -1000 PT 36.6 SEC (12.0-15.0) H 02/18/17 05:45 INR 3.61 (0.83-1.16) H 02/18/17 05:45 - Physical Exam Constitutional: no apparent distress, not in pain, chronically ill appearing, uncomfortable (from coughing) Cardiovascular: systolic murmur (III/ at sternum), diastolic murmur (late I/ at sternum), other (occasional irregularity), No irregularly irregular, No tachycardia Respiratory: reduced air movement (right base), rhonchi (on inspiration bilat), No expiratory wheeze, No bronchial breath sounds Gastrointestinal: normoactive bowel sounds, soft, non-tender abdomen, no palpable masses, No distension Neurologic: AAOx3, sensation intact bilaterally, No facial droop Psychiatric: interacting appropriately, not anxious, not encephalopathic, thought process linear, other (concentration 7/7) ICD10 Worksheet Patient Problems: Problems Problem Status Onset Systolic CHF, acute on chronic Acute Chest pain Acute CHRONIC DISEASE MANAGEMENTTransitional Care Acute Hypoxemia Acute Pre-syncope Acute Cardiomyopathy Acute Alcoholic intoxication Acute Troponin level elevated Acute Elevated INR Acute Shortness of breath Acute Pneumonia Acute Acute chest pain Acute Acute respiratory failure Acute Pneumonia involving right lung Acute Systolic congestive heart failure Acute COPD exacerbation Acute Subtherapeutic anticoagulation Acute Congestive cardiac failure Acute Hypoxia Acute Sepsis Acute Palliative care encounter Acute
[2017-02-18] MEDS: POTASSIUM Cl (KCl) 100 ML IV SCH ×3 (10:42→11:56)
[2017-02-18] MEDS: oxyCODONE IR 5 MG TAB PO PRN (11:14)
[2017-02-18] MEDS: clonazePAM 0.5 MG TAB PO PRN (11:14)
[2017-02-18] MEDS: LISINOPRIL 5 MG TAB PO SCH (11:15)
[2017-02-18] MEDS: guaiFENesin 600 MG TAB.ER PO SCH ×2 (11:15→21:35)
[2017-02-18] MEDS: PANTOPRAZOLE SODIUM 40 MG TAB PO SCH (11:15)
[2017-02-18] MEDS: CLOPIDOGREL BISULFATE 75 MG TAB PO SCH (11:15)
--- NOTE | 2017-02-18 13:41 | SOAPPROG ---
SOAP Progress Note Assessment/Plan: Assessment: Recurrent aspiration pneumonia. Improving. Chest x-ray shows persistent changes, right greater than left. On bronchopulmonary therapies and Zosyn. Severe sepsis: Resolved. Off norepinephrine. Coag-negative staph has come up on blood culture in 1 of 2 bottles consistent with a contaminant. Swallow dysfunction, ongoing aspiration risk for thin liquids. Speech therapy involved, recommendations are being reinforced. Ischemic cardiomyopathy, severe. Valvular heart disease, status post replacements. a component of congestive heart failure and pulmonary edema does appear to be present. On Lasix.. COPD History previous strokes Anticoagulation. Coumadin on hold. INR is 3.6 today, follow. No evidence of bleeding GI: On pantoprazole. Present on admission. Metabolic: No significant issues identified. Nutrition: Eating, with swallowing precautions. Advanced directives: DNR. Status post palliative care conference. Plan: Continue care on PCU. Continue bronchopulmonary therapies and antibiotics. Continue lasix, continue to hold Coumadin. Follow laboratory, INR , chest x-ray intermittently. Increase activities as tolerated. Continue to work with patient regarding speech therapy recommendations to prevent aspiration. 02/18/17 13:52 Subjective: much better today. More alert. Denies pain. Denies significant shortness of breath. Some cough and mucus Objective: Vital Signs Temp Pulse Resp BP Pulse Ox 36.6 C 78 15 110/68 86 L 02/18/17 11:53 02/18/17 11:53 02/18/17 11:53 02/18/17 11:53 02/18/17 11:53 Laboratory Results 02/18/17 05:45 02/18/17 05:45 02/17/17 02/18/17 02/19/17 05:59 05:59 05:59 Intake Total 360 1350 405 Output Total 660 2350 325 Balance -300 -1000 80 PT 36.6 SEC (12.0-15.0) H 02/18/17 05:45 INR 3.61 (0.83-1.16) H 02/18/17 05:45 Laboratory Tests 02/18/17 02/18/17 05:45 05:45 PT 36.6 H INR 3.61 H Calcium 8.3 L Total Bilirubin 2.3 H Conjugated Bilirubin 0.7 H Unconjugated Bilirubin 1.6 H AST 56 ALT 58 Albumin 2.9 L CXR: Bilateral infiltrates persist, right greater than left, with changes of congestive heart failure / pulmonary edema CT head yesterday: No acute changes. No evidence of bleed. Physical Exam - Physical Exam General Appearance: alert, no apparent distress, thin, other ( sitting up in bed ) EENT: PERRL/EOMI, other ( nasal cannula in place at 5 L) Neck: normal inspection ( no obvious JVD) Respiratory: decreased breath sounds ( bilaterally. Rales present at the bases bilaterally. Central congestion with cough. Few wheezes.), rales, rhonchi, wheezing ( Mild, not tight) Cardiac/Chest: regular rate, rhythm ( paced), gallop, systolic murmur Abdomen: normal bowel sounds, non-tender, soft Male Genitalia: No other ( using urinal. Good urine output after Lasix yesterday.) Skin: warm/dry, pallor Extremities: pedal edema ( Trace +) Neuro/Psych: no motor/sensory deficits ( moves all extremities equally), cognition abnormalities ( mild confusion present) ICD10 Worksheet Patient Problems: Problems Problem Status Onset Congestive cardiac failure Acute Hypoxia Acute Palliative care encounter Acute Pneumonia Acute Sepsis Acute Acute chest pain Acute Acute respiratory failure Acute Alcoholic intoxication Acute CHRONIC DISEASE MANAGEMENTTransitional Care Acute COPD exacerbation Acute Cardiomyopathy Acute Chest pain Acute Elevated INR Acute Hypoxemia Acute Pneumonia involving right lung Acute Pre-syncope Acute Shortness of breath Acute Subtherapeutic anticoagulation Acute Systolic CHF, acute on chronic Acute Systolic congestive heart failure Acute Troponin level elevated Acute
[2017-02-18] MEDS: CARVEDILOL 3.125 MG TAB PO SCH (17:28)
[2017-02-18] MEDS: MIRTAZAPINE 30 MG TAB PO SCH (21:34)
[2017-02-18] MEDS: FINASTERIDE 5 MG TAB PO SCH (21:34)
[2017-02-18] MEDS: GABAPENTIN 300 MG CAP PO SCH (21:34)
[2017-02-18] MEDS: TAMSULOSIN HCL 0.4 MG CAP PO SCH (21:35)
[2017-02-18] MEDS: MULTIVITAMINS 1 EACH TAB PO SCH (21:35)
[2017-02-18] MEDS: QUEtiapine FUMARATE 200 MG TAB PO SCH (21:35)
[2017-02-18] MEDS: OMEGA-3 FATTY ACIDS 1,000 MG CAP PO SCH (21:36)
[2017-02-18] MEDS: traZODone 50 MG TAB PO SCH (21:36)
[2017-02-19] MEDS: PIPERACILLIN/TAZO 4.5 GM/DEX 100 ML IV SCH ×2 (04:43→12:03)
[2017-02-19 05:39] LABS: % IMMATURE GRANULYOCYTES 0.5 % (0.0-1.1); ABSOLUTE IMMATURE GRANULOCYTES 0.04 10^3/uL (0.00-0.10); ADD DIFF? NO; ADD MORPH? NO; ADD SCAN? NO; ATYPICAL LYMPHOCYTE FLAG 20 (0-99); FRAGMENT RBC FLAG 0 (0-99); HEMATOCRIT 26.8 % (40.0-51.0); HEMOGLOBIN 9.1 g/dL (13.7-17.5); LEFT SHIFT FLG 0 (0-99); LIPEMIA HEMOLYSIS FLAG 90 (0-99); MEAN CELL HEMOGLOBIN 33.1 pg (27.9-34.1); MEAN CELL VOLUME 97.5 fL (81.5-99.8); MEAN PLATELET VOLUME 9.6 fL (8.7-11.7); PLATELET CLUMPS FLAG 0 (0-99); PLATELET COUNT 128 10^3/uL (150-400); RED BLOOD CELL COUNT 2.75 10^6/uL (4.40-6.38); RED CELL DISTRIBUTION WIDTH 12.9 % (11.5-15.2)
[2017-02-19 05:48] LABS: INR 2.63 (0.83-1.16); PROTIME(PATIENT) 28.4 SEC (12.0-15.0)
[2017-02-19 05:52] LABS: ALANINE AMINOTRANSFERASE 223 IU/L (21-72); ALBUMIN 2.6 g/dL (3.5-5.0); ALKALINE PHOSPHATASE 102 IU/L (38-126); ANION GAP 9 mEq/L (8-16); ASPARTATE AMINOTRANSFERASE 346 IU/L (17-59); BILIRUBIN,TOTAL 2.1 mg/dL (0.1-1.4); CALCIUM 7.9 mg/dL (8.5-10.4); CARBON DIOXIDE 28 mEq/l (22-31); CHLORIDE 101 mEq/L (97-110); CREATININE 0.9 mg/dL (0.7-1.3); GLOMERULAR FILTRATION RATE > 60; GLUCOSE 121 mg/dL (70-100); MAGNESIUM 1.9 mg/dL (1.6-2.3); POTASSIUM 3.5 mEq/L (3.5-5.2); SODIUM 138 mEq/L (134-144); TOTAL PROTEIN 4.7 g/dL (6.3-8.2)
[2017-02-19 06:00] LABS: BILIRUBIN-CONJUGATED 0.8 mg/dL (0.0-0.5); BILIRUBIN-UNCONJUGATED 1.3 mg/dL (0.0-1.1)
[2017-02-19] MEDS: CLOPIDOGREL BISULFATE 75 MG TAB PO SCH (08:38)
[2017-02-19] MEDS: LISINOPRIL 5 MG TAB PO SCH (08:38)
[2017-02-19] MEDS: guaiFENesin 600 MG TAB.ER PO SCH ×2 (08:38→20:53)
[2017-02-19] MEDS: PANTOPRAZOLE SODIUM 40 MG TAB PO SCH (08:38)
[2017-02-19] MEDS: CARVEDILOL 3.125 MG TAB PO SCH ×2 (08:38→17:36)
[2017-02-19] MEDS: oxyCODONE IR 5 MG TAB PO PRN (08:56)
[2017-02-19] MEDS: clonazePAM 0.5 MG TAB PO PRN (08:56)
[2017-02-19] MEDS ORDERED: FUROSEMIDE 20 MG TAB PO SCH (09:00)
[2017-02-19 09:01] LABS: PROCALCITONIN 0.51 ng/mL (0.02-0.10)
[2017-02-19] MEDS: POTASSIUM Cl (KCl) 100 ML IV SCH ×3 (09:14→12:04)
--- NOTE | 2017-02-19 12:13 | ASMTCMCOM ---
CM Note CM Note Notes: 02/19/2017 Case management note: Met w/pt and daughter Natali. Pt did not participate in conversation. Discussed concerns re: pt ability to follow swallow protocol at all meals if unsupervised. Natali reports that pt lives at [facility] ([facility]+ older community) in a studio apartment and does not recieve any services. Natali or her brother Gordon check on pt daily and at times provide meals for him. Natali takes pt to grocery store every weekend. Pt had prior stay at [facility]. Natali requested referrals to other facilities as well. Case Management referred to multiple SNFs. Case Management d/c poc: [facility]. Anticipate d/c mid week, waiting to hear back from SNF referrals for placement. Case Management to follow. 02/16/2017 CM Note Met w/pt and children. Discussed dc poc. They are hoping to do speech therapy consistently for while. They would like to start with [facility] sp services. Notified Polly at [facility]. As of now, pt will have C RN, SP, possibly PT if needed. Conf address and discussed homebound status for [facility]. Pt seems to have very supportive children; Natali dtr ([phone]), would like to be kept in loop of dc plan. MIN w/f. Date Signed: 02/19/2017 12:12 PM Electronically Signed By:Crissy Li RN
--- NOTE | 2017-02-19 15:55 | SOAPPROG ---
SOAP Progress Note Assessment/Plan: Assessment: Recurrent aspiration pneumonia. Improved clinically but Chest x-ray shows persistent changes, right greater than left. On bronchopulmonary therapies and Zosyn. Severe sepsis: Resolved. Off norepinephrine. Coag-negative staph has come up on blood culture in 1 of 2 bottles consistent with a contaminant. Swallow dysfunction, ongoing aspiration risk for thin liquids. Speech therapy involved, recommendations are being reinforced. Ischemic cardiomyopathy, severe. Valvular heart disease, status post replacements. a component of congestive heart failure and pulmonary edema does appear to be present. On Lasix.. COPD History previous strokes: AMS, with fluctuating mental status Anticoagulation. Coumadin restarted. INR is 2.6 today. GI: On pantoprazole. Present on admission. Metabolic: Increased liver function studies. Bumped today. Bilirubin normal. Etiology unclear, right upper quadrant ultrasound pending. Question possibly secondary to drugs: Zosyn? Reportedly as high as 14%. Will stop, go to Invanz. Nutrition: Eating, with swallowing precautions. Advanced directives: DNR. Status post palliative care conference. Plan: Continue care on PCU. Continue bronchopulmonary therapies and antibiotics. Continue lasix. Follow laboratory, INR, chest x-ray intermittently. Increase activities as tolerated. Will stop Zosyn, start Invanz tomorrow. Follow liver function studies. Continue to work with patient regarding speech therapy recommendations to prevent aspiration. Subjective: Less confused this afternoon compared with earlier by report, Baylee wilson.. Breathing is okay. No pain. Able to cough up some secretions intermittently. Objective: Vital Signs Temp Pulse Resp BP Pulse Ox 36.6 C 70 16 97/47 L 95 02/19/17 15:04 02/19/17 15:44 02/19/17 15:44 02/19/17 15:04 02/19/17 15:44 Laboratory Results 02/19/17 05:30 02/19/17 05:30 02/18/17 02/19/17 02/20/17 05:59 05:59 05:59 Intake Total 1350 1564 Output Total 2350 1050 Balance -1000 514 PT 28.4 SEC (12.0-15.0) H D 02/19/17 05:30 INR 2.63 (0.83-1.16) H 02/19/17 05:30 Laboratory Tests 0902/19/17 02/19/17 05:30 05:30 12:30 PT 28.4 H D INR 2.63 H Total Bilirubin 2.1 H AST 346 H ALT 223 H Ammonia 17.0 Albumin 2.6 L Physical Exam - Physical Exam General Appearance: alert, no apparent distress, other (Up in chair, talking to his son.) EENT: PERRL/EOMI, other (Nasal cannula at 5 L) Neck: normal inspection Respiratory: decreased breath sounds (Bilaterally, with bilateral fine rales right greater than left.), rhonchi (Few centrally with cough), No wheezing Cardiac/Chest: regular rate, rhythm Abdomen: normal bowel sounds, non-tender, soft Skin: warm/dry, pallor Extremities: No pedal edema Neuro/Psych: no motor/sensory deficits (Moves all extremities equally), cognition abnormalities (Less confused this afternoon, but not at baseline.) ICD10 Worksheet Patient Problems: Problems Problem Status Onset Systolic CHF, acute on chronic Acute Chest pain Acute CHRONIC DISEASE MANAGEMENTTransitional Care Acute Hypoxemia Acute Pre-syncope Acute Cardiomyopathy Acute Alcoholic intoxication Acute Troponin level elevated Acute Elevated INR Acute Shortness of breath Acute Pneumonia Acute Acute chest pain Acute Acute respiratory failure Acute Pneumonia involving right lung Acute Systolic congestive heart failure Acute COPD exacerbation Acute Subtherapeutic anticoagulation Acute Congestive cardiac failure Acute Hypoxia Acute Sepsis Acute Palliative care encounter Acute
[2017-02-19] MEDS ORDERED: WARFARIN SODIUM 4 MG TAB PO ONE (16:00)
--- NOTE | 2017-02-19 16:01 | HOSPPROG ---
Hospitalist Progress Note Assessment/Plan: Assessment/Plan: 76 yo M with hx of chronic aspiration and recurrent aspiration pna, c/b acute encephalopathy 2/2 HCAP # aspiration pna: appears to be persistent w/ BELINDA infiltrate on CXR and consolidation in RLL (personally interpreted), coughing on his own secretions, he likely continues to aspirate despite diet precautions - SMOKE AND FLAME SPECIALIST recs - adjusted Abx to cover Pseudomonas (present on previous sputum Cx), D#08/02 - sputum Cx # chronic dysphagia: patient has had issues with chronic dysphagia and recurrent aspiration but is not compliant with speech recommendations in terms of dietary modification - palliative consult appreciated, patient opted for aggressive tx course # coag neg staph contaminent: 1/2 BCx, not active infxn # acute encephalopathy: has ongoing altered sensorium w/ visual hallucination, poor insight, intermittent non-sensical speech - d/w Dr. Siddiqui, we agree that we suspect this 2/2 combination of infxn, poor sleep, PRN klonopin, pain Rx, hospital-encephalopathy - ammonia normal - redirection as primary intervention, fall risk - removed all altering Rx from profile, w/ exception of home mood stabilizers # acute respiratory failure: evidenced by SpO2 70% on 10L high flow, increased to 15LPM, respiratory distress on presentation, 2/2 aspiration PNA, d/w patient , he was NOT on supplemental oxygen prior to presentation - cont 5LPM, intermittently 88% - introduced mucinex w/ ongoing cough, pulm hygiene ordered # acute on chronic systolic heart failure: with EF of 15%, appears to be worsening w/ RLL pleural effusion - net neg 500 cc o/n - holding ACEi - increasing PO lasix to 20mg bid # 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 Unclear etiology, unclear whether contributing to cognitive sx - get RUQ US - get hep panel given recent Hep A outbreak - monitor daily labs - his mood stabilizers could cause DRESS, but no Eos on CBC, cont to monitor # h/o etoh abuse: in remission, suspect there may be some cognitive deficits associated with chronic etoh # copd: no e/o exacerbation # bph: continue flomax diet. NPO, SMOKE AND FLAME SPECIALIST eval ppx. on coumadin code. DNR dispo. ADD uncertain, severely ill High medical complexity patient, high risk of worsening morbidity/mortality, 2/ 2 above. Subjective: visual hallucinations today, low energy Objective: Vital Signs Temp Pulse Resp BP Pulse Ox 36.6 C 70 16 97/47 L 95 02/19/17 15:04 02/19/17 15:44 02/19/17 15:44 02/19/17 15:04 02/19/17 15:44 Laboratory Results 02/19/17 05:30 02/19/17 05:30 02/18/17 02/19/17 02/20/17 05:59 05:59 05:59 Intake Total 1350 1564 Output Total 2350 1050 Balance -1000 514 PT 28.4 SEC (12.0-15.0) H D 02/19/17 05:30 INR 2.63 (0.83-1.16) H 02/19/17 05:30 - Physical Exam Constitutional: no apparent distress, not in pain, chronically ill appearing, cachectic, No uncomfortable Cardiovascular: regular rate and rhythym, no murmur, rub, or gallop, edema ( trace bilat LE), No irregularly irregular Respiratory: reduced air movement (R base), inspiratory crackles (bilat ), No expiratory wheeze, No bronchial breath sounds Gastrointestinal: normoactive bowel sounds, soft, non-tender abdomen, no palpable masses, No distension Neurologic: sensation intact bilaterally, other (AAOx1), No weakness, No facial droop Psychiatric: not anxious, encephalopathic, poor insight, poor judgement, poor memory, No agitated ICD10 Worksheet Patient Problems: Problems Problem Status Onset Systolic CHF, acute on chronic Acute Chest pain Acute CHRONIC DISEASE MANAGEMENTTransitional Care Acute Hypoxemia Acute Pre-syncope Acute Cardiomyopathy Acute Alcoholic intoxication Acute Troponin level elevated Acute Elevated INR Acute Shortness of breath Acute Pneumonia Acute Acute chest pain Acute Acute respiratory failure Acute Pneumonia involving right lung Acute Systolic congestive heart failure Acute COPD exacerbation Acute Subtherapeutic anticoagulation Acute Congestive cardiac failure Acute Hypoxia Acute Sepsis Acute Palliative care encounter Acute
[2017-02-19] MEDS: FINASTERIDE 5 MG TAB PO SCH (20:53)
[2017-02-19] MEDS: traZODone 50 MG TAB PO SCH (20:53)
[2017-02-19] MEDS: GABAPENTIN 300 MG CAP PO SCH (20:53)
[2017-02-19] MEDS: MIRTAZAPINE 30 MG TAB PO SCH (20:53)
[2017-02-19] MEDS: MULTIVITAMINS 1 EACH TAB PO SCH (20:54)
[2017-02-19] MEDS: OMEGA-3 FATTY ACIDS 1,000 MG CAP PO SCH (20:54)
[2017-02-19] MEDS: TAMSULOSIN HCL 0.4 MG CAP PO SCH (20:54)
[2017-02-19] MEDS: QUEtiapine FUMARATE 200 MG TAB PO SCH (20:54)
[2017-02-20 05:43] LABS: % IMMATURE GRANULYOCYTES 0.3 % (0.0-1.1); ABSOLUTE IMMATURE GRANULOCYTES 0.02 10^3/uL (0.00-0.10); ADD DIFF? NO; ADD MORPH? NO; ADD SCAN? NO; ATYPICAL LYMPHOCYTE FLAG 10 (0-99); FRAGMENT RBC FLAG 0 (0-99); HEMATOCRIT 28.7 % (40.0-51.0); HEMOGLOBIN 9.5 g/dL (13.7-17.5); LEFT SHIFT FLG 0 (0-99); LIPEMIA HEMOLYSIS FLAG 80 (0-99); MEAN CELL HEMOGLOBIN 32.6 pg (27.9-34.1); MEAN CELL HEMOGLOBIN CONCENTR. 33.1 g/dL (32.4-36.7); MEAN CELL VOLUME 98.6 fL (81.5-99.8); MEAN PLATELET VOLUME 10.2 fL (8.7-11.7); PLATELET CLUMPS FLAG 0 (0-99); PLATELET COUNT 133 10^3/uL (150-400); RED BLOOD CELL COUNT 2.91 10^6/uL (4.40-6.38); RED CELL DISTRIBUTION WIDTH 13.1 % (11.5-15.2)
[2017-02-20 05:53] LABS: INR 2.32 (0.83-1.16); PROTIME(PATIENT) 25.7 SEC (12.0-15.0)
[2017-02-20 05:58] LABS: ALANINE AMINOTRANSFERASE 200 IU/L (21-72); ALBUMIN 2.6 g/dL (3.5-5.0); ALKALINE PHOSPHATASE 94 IU/L (38-126); ANION GAP 7 mEq/L (8-16); ASPARTATE AMINOTRANSFERASE 159 IU/L (17-59); BILIRUBIN,TOTAL 1.2 mg/dL (0.1-1.4); CALCIUM 8.3 mg/dL (8.5-10.4); CARBON DIOXIDE 31 mEq/l (22-31); CHLORIDE 101 mEq/L (97-110); CREATININE 0.8 mg/dL (0.7-1.3); GLOMERULAR FILTRATION RATE > 60; GLUCOSE 98 mg/dL (70-100); MAGNESIUM 2.1 mg/dL (1.6-2.3); POTASSIUM 3.6 mEq/L (3.5-5.2); SODIUM 139 mEq/L (134-144); TOTAL PROTEIN 5.1 g/dL (6.3-8.2)
[2017-02-20] MEDS ORDERED: POTASSIUM CL 20 MEQ TAB PO ONE ×2 (08:42→11:45)
[2017-02-20] MEDS: ERTAPENEM 1 GM in NS 100 ML IV SCH (11:44)
[2017-02-20] MEDS: CLOPIDOGREL BISULFATE 75 MG TAB PO SCH (11:47)
[2017-02-20] MEDS: guaiFENesin 600 MG TAB.ER PO SCH ×2 (11:47→20:55)
[2017-02-20] MEDS: PANTOPRAZOLE SODIUM 40 MG TAB PO SCH (11:48)
[2017-02-20] MEDS: FUROSEMIDE 20 MG TAB PO SCH ×2 (11:48→16:03)
[2017-02-20] MEDS: CARVEDILOL 3.125 MG TAB PO SCH ×2 (11:48→18:42)
--- NOTE | 2017-02-20 13:19 | PDPCPN ---
Palliative Care Progress Note Assessment/Plan: HPI: Frandy Mckeon is a 76 yo male with PMH ETOH (remission 2010), CAD, CHF ( EF 15%), COPD, mech valve, and recurrent asp PNa admitted to the hospital for increased resp distress. Found to have repeated asp PNA with known dysphagia needing nectar thick liquids. Recent admission November 2016 went home with [facility]. Palliative care consulted for complex medical decision making. Harmeet seen thsi Am with son Gordon at the bedside. He still has a little confusion compared to last week with short term memory issues. He understands his need for supervision with meals but due to short term memory problems often forgets this. He feels his breathing is ok and that he is hungry. Spoke with daughter Natali over the phone to answer any questions. She stated the plan is for SNF/rehab due to his inability to be home alone right now. We spoke about the need to continue to address goals of care and quality of life depending on how Harmeet does in SNF/rehab. The family has started looking into other options for care and understands the need for strict diet and dysphagia precautions. Assessment: Physical: - Pain: none -tylenol PRN - Dyspnea: at times - oxygen as needed - fan for subjective dyspnea - nebs if needed - dysphagia - speech following - nectar thick liquids Emotional/psychological: has a lot of support from family Advanced Care Planning: Is patient decisional?: yes with help Code Status: DNR POA: Maddy Rizo is MDPOA. Plan: Planning for rehab as cannot go home. Family has started looking into LTC vs AL if he continues to need support especially with eating. They are aware of potential for minimal improvement in continued aspiration and will continue to address goals of care as needed. Subjective: I'm doing ok Objective: Vital Signs Temp Pulse Resp BP Pulse Ox 36.7 C 70 20 99/67 L 98 02/20/17 11:27 02/20/17 11:27 02/20/17 11:27 02/20/17 11:27 02/20/17 11:27 Microbiology 02/19/17 10:58 - Final Sputum, Expectorated Laboratory Results 02/20/17 05:30 02/20/17 05:30 02/19/17 02/20/17 02/21/17 05:59 05:59 05:59 Intake Total 1564 550 Output Total 1050 1325 Balance 514 -775 PT 25.7 SEC (12.0-15.0) H 02/20/17 05:30 INR 2.32 (0.83-1.16) H 02/20/17 05:30 Physical Exam - Physical Exam General Appearance: alert, no apparent distress Respiratory: No respiratory distress, No accessory muscle use Skin: normal color, warm/dry Extremities: No pedal edema Neuro/Psych: alert, disoriented to time, other (some confusion and short term memory loss) ICD10 Worksheet Patient Problems: Problems Problem Status Onset Congestive cardiac failure Acute Hypoxia Acute Palliative care encounter Acute Pneumonia Acute Sepsis Acute Acute chest pain Acute Acute respiratory failure Acute Alcoholic intoxication Acute CHRONIC DISEASE MANAGEMENTTransitional Care Acute COPD exacerbation Acute Cardiomyopathy Acute Chest pain Acute Elevated INR Acute Hypoxemia Acute Pneumonia involving right lung Acute Pre-syncope Acute Shortness of breath Acute Subtherapeutic anticoagulation Acute Systolic CHF, acute on chronic Acute Systolic congestive heart failure Acute Troponin level elevated Acute - ICD10 Problem Qualifiers (1) Palliative care encounter
[2017-02-20] MEDS ORDERED: WARFARIN SODIUM 7.5 MG TAB PO ONE (16:00)
[2017-02-20] MEDS: clonazePAM 0.5 MG TAB PO SCH ×2 (16:02→20:56)
[2017-02-20] MEDS: ENOXAPARIN 60 MG/0.6 ML SYR SC SCH ×2 (16:02→21:10)
--- NOTE | 2017-02-20 16:39 | HOSPPROG ---
Hospitalist Progress Note Assessment/Plan: Assessment/Plan: 76 yo M with hx of chronic aspiration and recurrent aspiration pna, c/b acute encephalopathy 2/2 HCAP # aspiration pna: appears to be persistent w/ BELINDA infiltrate on CXR and consolidation in RLL (personally interpreted), coughing on his own secretions, he likely continues to aspirate despite diet precautions - WAISTLINE JOINER LOCKSTITCH recs - adjusted Abx give possible drug rxn, now on ertapenem, D#09/02 - sputum Cx # chronic dysphagia: patient has had issues with chronic dysphagia and recurrent aspiration but is not compliant with speech recommendations in terms of dietary modification - palliative consult appreciated, patient opted for aggressive tx course, d/w Tamie Walters today # coag neg staph contaminent: 1/2 BCx, not active infxn # acute encephalopathy: has ongoing altered sensorium but is improving today - suspect this 2/2 combination of infxn, poor sleep, PRN klonopin, pain Rx, hospital-encephalopathy - counseled patient and son extensively that reintroducing the klonopin could potentiate a backslide on the progress he has made today, but patient wants the Rx - we were able to agree on heat pad/ice for shoulder back, as opposed to percocet # acute respiratory failure: evidenced by SpO2 70% on 10L high flow, increased to 15LPM, respiratory distress on presentation, 2/2 aspiration PNA, d/w patient , he was NOT on supplemental oxygen prior to presentation - cont 5LPM - introduced mucinex w/ ongoing cough, pulm hygiene ordered # acute on chronic systolic heart failure: with EF of 15%, appears to be worsening w/ RLL pleural effusion - net neg 800 cc o/n - stopped ACEi, cont lasix 20 bid # 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 Reg per WAISTLINE JOINER LOCKSTITCH recs ppx. on coumadin code. DNR dispo. ADD uncertain, severely ill High medical complexity patient, high risk of worsening morbidity/mortality, 2/ 2 above. Subjective: patient feels less confused, qustions his HIDA, questions his lack of percocet/klonopin, counseled extensively regarding reasoning for holding sedating Rx Objective: Vital Signs Temp Pulse Resp BP Pulse Ox 36.7 C 73 18 107/55 L 94 02/20/17 16:14 02/20/17 16:14 02/20/17 16:14 02/20/17 16:14 02/20/17 16:14 Microbiology 02/19/17 10:58 - Final Sputum, Expectorated Laboratory Results 02/20/17 05:30 02/20/17 05:30 02/19/17 02/20/17 02/21/17 05:59 05:59 05:59 Intake Total 1564 550 Output Total 1050 1325 Balance 514 -775 PT 25.7 SEC (12.0-15.0) H 02/20/17 05:30 INR 2.32 (0.83-1.16) H 02/20/17 05:30 - Time Spent With Patient Time Spent with Patient: greater than 35 minutes Time Spent with Patient: Greater than 35 minutes spent on this patients care, greater than 50% of time spent counseling, educating, and coordinating care regarding the above mentioned plan. ICD10 Worksheet Patient Problems: Problems Problem Status Onset Congestive cardiac failure Acute Hypoxia Acute Palliative care encounter Acute Pneumonia Acute Sepsis Acute Acute chest pain Acute Acute respiratory failure Acute Alcoholic intoxication Acute CHRONIC DISEASE MANAGEMENTTransitional Care Acute COPD exacerbation Acute Cardiomyopathy Acute Chest pain Acute Elevated INR Acute Hypoxemia Acute Pneumonia involving right lung Acute Pre-syncope Acute Shortness of breath Acute Subtherapeutic anticoagulation Acute Systolic CHF, acute on chronic Acute Systolic congestive heart failure Acute Troponin level elevated Acute
--- NOTE | 2017-02-20 16:40 | PDINTPN ---
Service Trainer Progress Note Assessment/Plan: Assessment/plan: 76 M with severe CMP and EF 15% as wellas recurrent aspiration PNA, admitted with hypoxemia and severe sepsis requiring pressors. He revoered well and has been treated with antibiotics. * Severe sepsis- resolved. Likely pulmonary source and responded to abx and IVF. * Aspiration PNA- stable from this perspective. Continue pulmonary toilet. Non compliant with speech therapy recommendations * LFTs- sever increase 2/2 low EF? improving today after diuresis. Hep serologies negative. HIDA results pending * MS changes- wax/wanes per notes. Unable to fully assess today * COPD- stable * CMP- s/p diuresis * afib- rate controlled on coreg * MVR and AVR Subjective: feels OK. Less sob, but we talked only briefly Objective: Vital Signs Temp Pulse Resp BP Pulse Ox 36.7 C 73 18 107/55 L 94 02/20/17 16:14 02/20/17 16:14 02/20/17 16:14 02/20/17 16:14 02/20/17 16:14 Microbiology 02/19/17 10:58 - Final Sputum, Expectorated Laboratory Results 02/20/17 05:30 02/20/17 05:30 02/19/17 02/20/17 02/21/17 05:59 05:59 05:59 Intake Total 1564 550 Output Total 1050 1325 Balance 514 -775 PT 25.7 SEC (12.0-15.0) H 02/20/17 05:30 INR 2.32 (0.83-1.16) H 02/20/17 05:30 Physical Exam - Physical Exam General Appearance: alert, no apparent distress EENT: PERRL/EOMI Neck: supple Respiratory: lungs clear, decreased breath sounds, No respiratory distress Cardiac/Chest: irregularly irregular Abdomen: normal bowel sounds, non-tender, No distended Skin: normal color, warm/dry Lymphatic: no adenopathy Neuro/Psych: alert ICD10 Worksheet Patient Problems: Problems Problem Status Onset Congestive cardiac failure Acute Hypoxia Acute Palliative care encounter Acute Pneumonia Acute Sepsis Acute Acute chest pain Acute Acute respiratory failure Acute Alcoholic intoxication Acute CHRONIC DISEASE MANAGEMENTTransitional Care Acute COPD exacerbation Acute Cardiomyopathy Acute Chest pain Acute Elevated INR Acute Hypoxemia Acute Pneumonia involving right lung Acute Pre-syncope Acute Shortness of breath Acute Subtherapeutic anticoagulation Acute Systolic CHF, acute on chronic Acute Systolic congestive heart failure Acute Troponin level elevated Acute
--- NOTE | 2017-02-20 16:48 | ASMTCMCOM ---
CM Note CM Note Notes: 02/20/2017 Case Management Note Met w/pt and son Tico. Pt prefers [facility] for rehab. Son Tico in agreement w/necessity for rehab stay. Called and spoke w/daughter Natali. Natali to tour [facility] tomorrow and discuss options w/patient. Case Management to follow. 02/19/2017 Case management note: Met w/pt and daughter Natali. Pt did not participate in conversation. Discussed concerns re: pt ability to follow swallow protocol at all meals if unsupervised. Natali reports that pt lives at [facility] ([facility]+ older community) in a studio apartment and does not recieve any services. Natali or her brother Gordon check on pt daily and at times provide meals for him. Natali takes pt to grocery store every weekend. Pt had prior stay at [facility]. Natali requested referrals to other facilities as well. Case Management referred to multiple SNFs. Case Management d/c poc: [facility]. Anticipate d/c mid week, waiting to hear back from SNF referrals for placement. Case Management to follow. 02/16/2017 CM Note Met w/pt and children. Discussed dc poc. They are hoping to do speech therapy consistently for while. They would like to start with [facility] sp services. Notified Polly at [facility]. As of now, pt will have C RN, SP, possibly PT if needed. Conf address and discussed homebound status for [facility]. Pt seems to have very supportive children; Natali dtr ([phone]), would like to be kept in loop of dc plan. MIN w/f. Date Signed: 02/20/2017 04:47 PM Electronically Signed By:Crissy Li RN
[2017-02-20] MEDS: MULTIVITAMINS 1 EACH TAB PO SCH (20:55)
[2017-02-20] MEDS: MIRTAZAPINE 30 MG TAB PO SCH (20:55)
[2017-02-20] MEDS: GABAPENTIN 300 MG CAP PO SCH (20:55)
[2017-02-20] MEDS: OMEGA-3 FATTY ACIDS 1,000 MG CAP PO SCH (20:55)
[2017-02-20] MEDS: SPIRONOLACTONE 25 MG TAB PO SCH (20:56)
[2017-02-20] MEDS: FINASTERIDE 5 MG TAB PO SCH (20:56)
[2017-02-20] MEDS: TAMSULOSIN HCL 0.4 MG CAP PO SCH (20:56)
[2017-02-20] MEDS: QUEtiapine FUMARATE 200 MG TAB PO SCH (20:56)
[2017-02-20] MEDS: traZODone 50 MG TAB PO SCH (20:56)
[2017-02-21 06:35] LABS: ABSOLUTE IMMATURE GRANULOCYTES 0.06 10^3/uL (0.00-0.10); ADD DIFF? NO; ADD MORPH? NO; ADD SCAN? NO; ATYPICAL LYMPHOCYTE FLAG 0 (0-99); FRAGMENT RBC FLAG 0 (0-99); HEMATOCRIT 29.2 % (40.0-51.0); HEMOGLOBIN 9.6 g/dL (13.7-17.5); LEFT SHIFT FLG 0 (0-99); LIPEMIA HEMOLYSIS FLAG 80 (0-99); MEAN CELL HEMOGLOBIN 32.3 pg (27.9-34.1); MEAN CELL HEMOGLOBIN CONCENTR. 32.9 g/dL (32.4-36.7); MEAN CELL VOLUME 98.3 fL (81.5-99.8); MEAN PLATELET VOLUME 9.7 fL (8.7-11.7); PLATELET CLUMPS FLAG 0 (0-99); PLATELET COUNT 150 10^3/uL (150-400); RED BLOOD CELL COUNT 2.97 10^6/uL (4.40-6.38); RED CELL DISTRIBUTION WIDTH 13.2 % (11.5-15.2)
[2017-02-21 07:13] LABS: ALANINE AMINOTRANSFERASE 235 IU/L (21-72); ALBUMIN 2.6 g/dL (3.5-5.0); ALKALINE PHOSPHATASE 119 IU/L (38-126); ANION GAP 7 mEq/L (8-16); ASPARTATE AMINOTRANSFERASE 180 IU/L (17-59); BILIRUBIN,TOTAL 0.8 mg/dL (0.1-1.4); CALCIUM 8.3 mg/dL (8.5-10.4); CARBON DIOXIDE 30 mEq/l (22-31); CHLORIDE 100 mEq/L (97-110); CREATININE 0.8 mg/dL (0.7-1.3); GLOMERULAR FILTRATION RATE > 60; GLUCOSE 84 mg/dL (70-100); POTASSIUM 3.4 mEq/L (3.5-5.2); SODIUM 137 mEq/L (134-144); TOTAL PROTEIN 4.9 g/dL (6.3-8.2)
[2017-02-21 07:47] LABS: INR 3.46 (0.83-1.16); PROTIME(PATIENT) 35.4 SEC (12.0-15.0)
[2017-02-21] MEDS ORDERED: POTASSIUM CL 20 MEQ TAB PO ONE (08:38)
[2017-02-21] MEDS ORDERED: CARVEDILOL 3.125 MG TAB PO SCH (08:39)
[2017-02-21] MEDS: CLOPIDOGREL BISULFATE 75 MG TAB PO SCH (09:15)
[2017-02-21] MEDS: clonazePAM 0.5 MG TAB PO SCH ×2 (09:15→20:11)
[2017-02-21] MEDS: PANTOPRAZOLE SODIUM 40 MG TAB PO SCH (09:15)
[2017-02-21] MEDS: guaiFENesin 600 MG TAB.ER PO SCH ×2 (09:15→20:11)
[2017-02-21] MEDS: ERTAPENEM 1 GM in NS 100 ML IV SCH (09:15)
[2017-02-21] MEDS: FUROSEMIDE 20 MG TAB PO SCH ×2 (09:15→17:46)
[2017-02-21] MEDS: CARVEDILOL 3.125 MG TAB PO SCH ×3 (12:04→17:46)
--- NOTE | 2017-02-21 12:44 | ASMTCMCOM ---
CM Note CM Note Notes: 02/21/17 CM note Patient likely ready for dc tomorrow. Family wanting [facility]. Discussed with Hortencia and she said that patient okay to be accepted to center. He geremias likely transition to oral antibiotics. Spoke about dc poc to [facility]. She is in agreement. Patient states he has no preference. CM to follow. CM Note 02/20/2017 Case Management Note Met w/pt and son Tico. Pt prefers [facility] for rehab. Son Tico in agreement w/necessity for rehab stay. Called and spoke w/daughter Natali. Natali to tour [facility] tomorrow and discuss options w/patient. Case Management to follow. 02/19/2017 Case management note: Met w/pt and daughter Natali. Pt did not participate in conversation. Discussed concerns re: pt ability to follow swallow protocol at all meals if unsupervised. Natali reports that pt lives at [facility] apartments ([facility]+ older community) in a studio apartment and does not recieve any services. Natali or her brother Gordon check on pt daily and at times provide meals for him. Natali takes pt to grocery store every weekend. [facility]. Natali requested referrals to other facilities as well. Case Management referred to multiple SNFs. Case Management d/c poc: [facility]. Anticipate d/c mid week, waiting to hear back from SNF referrals for placement. Case Management to follow. 02/16/2017 CM Note Met w/pt and children. Discussed dc poc. They are hoping to do speech therapy consistently for while. They would like to start with [facility] sp services. Notified Polly at [facility]. As of now, pt will have C RN, SP, possibly PT if needed. Conf address and discussed homebound status for HHC. Pt seems to have very supportive children; Natali dtyonatan ([phone]), would like to be kept in loop of dc plan. MIN w/f. Page 1 of 1 Date Signed: 02/21/2017 12:44 PM Electronically Signed By:Nimco Lynch RN
--- NOTE | 2017-02-21 14:54 | HOSPPROG ---
Hospitalist Progress Note Assessment/Plan: Assessment/Plan: 76 yo M with hx of chronic aspiration and recurrent aspiration pna, c/b acute encephalopathy and respiratory failure, slow to resolve # aspiration pna: POA, appears to be persistent w/ BELINDA infiltrate on CXR and consolidation in RLL, coughing on his own secretions, counseled him that he likely continues to aspirate on oral secretions despite diet precautions - FILM AND VIDEO GRAPHICS DESIGNER recs - adjusted Abx give possible drug rxn, now on ertapenem, D#10/02 (transition to PO levofloxacin at DC) - sputum Cx w/ chela - add duonebs to help clear secretions today, faint exp wheeze # chronic dysphagia: patient has had issues with chronic dysphagia and recurrent aspiration but is not compliant with speech recommendations in terms of dietary modification at home (he has likely mild cognitive impairment) - palliative consult appreciated, patient opted for aggressive tx course # coag neg staph contaminent: 1/2 BCx, not active infxn # acute encephalopathy: has ongoing altered sensorium but continues to improve today - avoid narcotics, we were able to agree on heat pad/ice for shoulder back, as opposed to percocet # acute respiratory failure: evidenced by SpO2 70% on 10L high flow, increased to 15LPM, respiratory distress on presentation, 2/2 aspiration PNA, d/w patient , he was NOT on supplemental oxygen prior to presentation - cont 2LPM - introduced mucinex w/ ongoing cough, pulm hygiene ordered, duonebs added - appreciate Dr. 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 Reg per FILM AND VIDEO GRAPHICS DESIGNER recs ppx. on coumadin code. DNR dispo. ADD 02/22 vs. 02/23, pending stability of above, has auth at [facility] and [facility] when medically ready Counseled patient and his two siblings extensively regarding the medical issues outlined above, his discharge plan, and his high risk of recurrence of BOTH aspiration pneumonia and sCHF. Subjective: reports feeling better, but ongoing cough/wheeze Objective: Vital Signs Temp Pulse Resp BP Pulse Ox 36.2 C 75 16 113/65 92 02/21/17 04:00 02/21/17 04:00 02/21/17 04:00 02/21/17 12:00 02/21/17 04:00 Microbiology 02/19/17 10:58 - Final Sputum, Expectorated Sputum Culture - Final [facility] Laboratory Results 02/21/17 06:15 02/21/17 06:15 02/20/17 02/21/17 02/22/17 05:59 05:59 05:59 Intake Total 550 550 240 Output Total 1325 Balance -775 550 240 PT 35.4 SEC (12.0-15.0) H D 02/21/17 06:15 INR 3.46 (0.83-1.16) H 02/21/17 06:15 - Time Spent With Patient Time Spent with Patient: greater than 35 minutes Time Spent with Patient: Greater than 35 minutes spent on this patients care, greater than 50% of time spent counseling, educating, and coordinating care regarding the above mentioned plan. - Pending Discharge Pending Discharge Within 48 Hours: Yes Pending Discharge Date: 02/23/17 Pending Discharge Time: 11:00 - Physical Exam Constitutional: no apparent distress, not in pain, chronically ill appearing, uncomfortable, cachectic Cardiovascular: systolic murmur (II/ at sternum and apex), edema (trace bilat LE), No irregularly irregular, No tachycardia Respiratory: reduced air movement (right base), expiratory wheeze, bronchial breath sounds, rhonchi (on insp bilat) Gastrointestinal: normoactive bowel sounds, soft, non-tender abdomen, no palpable masses, No distension Neurologic: other (AAOx2 (person and time, not place)), No facial droop Psychiatric: interacting appropriately, not anxious, encephalopathic, poor insight, poor memory, No agitated ICD10 Worksheet Patient Problems: Problems Problem Status Onset Congestive cardiac failure Acute Hypoxia Acute Palliative care encounter Acute Pneumonia Acute Sepsis Acute Acute chest pain Acute Acute respiratory failure Acute Alcoholic intoxication Acute CHRONIC DISEASE MANAGEMENTTransitional Care Acute COPD exacerbation Acute Cardiomyopathy Acute Chest pain Acute Elevated INR Acute Hypoxemia Acute Pneumonia involving right lung Acute Pre-syncope Acute Shortness of breath Acute Subtherapeutic anticoagulation Acute Systolic CHF, acute on chronic Acute Systolic congestive heart failure Acute Troponin level elevated Acute
[2017-02-21] MEDS: IPRATROPIUM/ALBUTEROL 3 ML DEYVIAL IH SCH ×3 (15:50→23:50)
--- NOTE | 2017-02-21 18:05 | ECHO ---
[email or web address] [address] [address] Main: [phone] Fax: Transthoracic Echocardiogram Name: BENJI DE LA ROSA MR#: [id number] Study Date: 02/21/2017 Study Time: 09:33 AM Date of : 1940 Age: 76 year(s) Height: 170.2 cm (67 in.) Weight: 63.05 kg (139 lb.) BSA: 1.73 m2 Gender: Male Examination: Echo Indication: CHF, Mitral Valve Regurgitation, Aortic Valve Regurgitation Image Quality: Contrast: Requested by: Benji Allison BP: 97 mmHg/55 mmHg Heart Rate: Rhythm: Pacemaker rhythm Indication: CHF, Mitral Valve Regurgitation, Aortic Valve Regurgitation Procedure Staff Development Trainer: Gordon Thayer Reading Physician: Verónica Haq Conclusions: Moderately to severely dilated left ventricle. Severely reduced systolic LV function (EF 10 %). All scored wall segments are hypokinetic. Normal size right ventricle. Moderately reduced RV function. There is an ICD lead noted in the right ventricle. The left atrium is severely dilated. The right atrium is moderately dilated. A bioprosthetic mitral valve is in place.. The aortic valve is a bioprosthesis. . Mild prosthesis regurgitation. Mean transmitral gradient is 7 mmHg. No mitral regurgitation Mild tricuspid regurgitation is present. The pulmonary artery pressure is moderately increased. Left side pleural effusion. Compared to previous echocardiogram there is a change in mean transmitral gradient slightly higher. This echo was dated 03/21/2016 Measurements: Chambers Valvular Assessment AV/MV Valvular Assessment TV/PV Normal Normal Normal Name Value Range Name Value Range Name Value Range Ao Teetee (MM): 3.8 cm (2.2 cm-3.7 AV Vmax: 1.71 m/s (1 m/s-1.7 TR Vmax: 3.15 mm/s ( - ) cm) m/s) TR PGmax: 40 mmHg ( - ) IVSd (2D): 0.8 cm (0.6 cm-1.1 AV maxP mmHg ( - ) syst. PAP: 45 mmHg ( - ) cm) AV meanP mmHg ( - ) PV Vmax: 0.68 cm/s (0.6 m/s-0.9 LVDd (2D): 6.6 cm (4.2 cm-5.9 LVOT Vmax: 0.55 m/s (0.7 m/s-1.1 m/s) cm) m/s) PV PGmax: 2 mmHg ( - ) LVDs (2D): 6.3 cm (2.1 cm-4 MAR[place]ET[place] (Vmax): 1.1 cm2 ( - ) cm) MAR[place] (VTI): 0.9 cm ( - ) Patient: BENJI DE LA ROSA Study Date: 02/21/2017 Page 1 of 2 09:33 AM LVPWd (2D): 0.8 cm (0.6 cm-1 AR (PHT): 574 ms ( - ) cm) MV E Vmax: 1.94 cm/s ( - ) LVOTd 2.1 cm 2.1 cm mm MV PHT: 0.112 ( - ) LVEF (MM): 10 (>=55 %) MVA (Vmax): 0.5 ( - ) MVA (PHT): 2.0 ( - ) Continued Measurements: Chambers Valvular Assessment AV/MV Valvular Assessment TV/PV Name Value Name Value Name Value LA Area: 23.6 cm2 MV DecTime: 380 CVP (est.): 5 LA Volume: 83 ml AR Vmax: 3.35 cm/s LA Volume Index: 48.0 ml/m2 AR VTI: 176.0 Findings: Left Ventricle: Moderately to severely dilated left ventricle. Severely reduced systolic LV function (EF 10 %). All scored wall segments are hypokinetic. Right Ventricle: Normal size right ventricle. Moderately reduced RV function. There is an ICD lead noted in the right ventricle. Left Atrium: The left atrium is severely dilated. Right Atrium: The right atrium is moderately dilated. Mitral Valve: A bioprosthetic mitral valve is in place.. The mitral valve prosthesis is stenotic. Mean mitral valve gradient {}. Aortic Valve: The aortic valve is a bioprosthesis. . Normal functioning aortic valve prosthesis. Mild prosthesis regurgitation. Tricuspid Valve: Mild tricuspid regurgitation is present. The pulmonary artery pressure is moderately increased. Pulmonic Valve: The pulmonic valve is normal in appearance and function. Mild pulmonic valve regurgitation is noted. Aorta: The aorta is normal. Pericardium: No pericardial effusion. Left side pleural effusion. (No Signature Object) Wall Motion Scores -1 - Not Scored, 0 - Unknown, 1 - Normal or hyperkinesia, 2 - Hypokinesia, 3 - Akinesia, 4 - Dyskinesia, 5 - Aneurysm Patient: BENJI DE LA ROSA Study Date: 02/21/2017 Page 2 of 2 09:33 AM [id number]
[2017-02-21] MEDS: QUEtiapine FUMARATE 200 MG TAB PO SCH (20:10)
[2017-02-21] MEDS: MIRTAZAPINE 30 MG TAB PO SCH (20:10)
[2017-02-21] MEDS: OMEGA-3 FATTY ACIDS 1,000 MG CAP PO SCH (20:10)
[2017-02-21] MEDS: FINASTERIDE 5 MG TAB PO SCH (20:11)
[2017-02-21] MEDS: SPIRONOLACTONE 25 MG TAB PO SCH (20:11)
[2017-02-21] MEDS: MULTIVITAMINS 1 EACH TAB PO SCH (20:11)
[2017-02-21] MEDS: traZODone 50 MG TAB PO SCH (20:11)
[2017-02-21] MEDS: TAMSULOSIN HCL 0.4 MG CAP PO SCH (20:11)
[2017-02-21] MEDS: GABAPENTIN 300 MG CAP PO SCH (20:12)
[2017-02-22 05:39] LABS: % IMMATURE GRANULYOCYTES 0.5 % (0.0-1.1); ABSOLUTE IMMATURE GRANULOCYTES 0.03 10^3/uL (0.00-0.10); ADD DIFF? NO; ADD MORPH? NO; ADD SCAN? NO; ATYPICAL LYMPHOCYTE FLAG 20 (0-99); FRAGMENT RBC FLAG 0 (0-99); HEMATOCRIT 31.1 % (40.0-51.0); HEMOGLOBIN 10.3 g/dL (13.7-17.5); LEFT SHIFT FLG 0 (0-99); LIPEMIA HEMOLYSIS FLAG 80 (0-99); MEAN CELL HEMOGLOBIN 32.8 pg (27.9-34.1); MEAN CELL HEMOGLOBIN CONCENTR. 33.1 g/dL (32.4-36.7); PLATELET CLUMPS FLAG 0 (0-99); PLATELET COUNT 159 10^3/uL (150-400); RED BLOOD CELL COUNT 3.14 10^6/uL (4.40-6.38); RED CELL DISTRIBUTION WIDTH 13.1 % (11.5-15.2)
[2017-02-22 05:48] LABS: INR 4.04 (0.83-1.16)
[2017-02-22] MEDS: IPRATROPIUM/ALBUTEROL 3 ML DEYVIAL IH SCH ×4 (05:52→23:54)
[2017-02-22 05:57] LABS: ALANINE AMINOTRANSFERASE 228 IU/L (21-72); ALBUMIN 2.9 g/dL (3.5-5.0); ALKALINE PHOSPHATASE 115 IU/L (38-126); ANION GAP 11 mEq/L (8-16); ASPARTATE AMINOTRANSFERASE 128 IU/L (17-59); BILIRUBIN,TOTAL 0.9 mg/dL (0.1-1.4); CALCIUM 8.6 mg/dL (8.5-10.4); CARBON DIOXIDE 29 mEq/l (22-31); CHLORIDE 101 mEq/L (97-110); CREATININE 0.8 mg/dL (0.7-1.3); GLOMERULAR FILTRATION RATE > 60; GLUCOSE 91 mg/dL (70-100); MAGNESIUM 1.9 mg/dL (1.6-2.3); POTASSIUM 3.8 mEq/L (3.5-5.2); SODIUM 141 mEq/L (134-144); TOTAL PROTEIN 5.2 g/dL (6.3-8.2)
[2017-02-22] MEDS: ERTAPENEM 1 GM in NS 100 ML IV SCH (08:11)
[2017-02-22] MEDS: clonazePAM 0.5 MG TAB PO SCH ×2 (08:12→19:48)
[2017-02-22] MEDS: CARVEDILOL 3.125 MG TAB PO SCH ×2 (08:12→18:08)
[2017-02-22] MEDS: PANTOPRAZOLE SODIUM 40 MG TAB PO SCH (08:12)
[2017-02-22] MEDS: guaiFENesin 600 MG TAB.ER PO SCH ×2 (08:12→19:50)
[2017-02-22] MEDS: FUROSEMIDE 20 MG TAB PO SCH ×2 (08:13→15:41)
[2017-02-22] MEDS: CLOPIDOGREL BISULFATE 75 MG TAB PO SCH (08:13)
--- NOTE | 2017-02-22 08:33 | HOSPPROG ---
Hospitalist Progress Note Assessment/Plan: 76 yo M with hx of chronic aspiration and recurrent aspiration pna, c/b acute encephalopathy and respiratory failure, slow to resolve # aspiration pna: POA, appears to be persistent w/ BELINDA infiltrate on CXR and consolidation in RLL, coughing on his own secretions, counseled him that he likely continues to aspirate on oral secretions. he is not compliant with diet precautions. - VENEER SANDER following - adjusted Abx give possible drug rxn, now on ertapenem, D#/ (transition to PO levofloxacin at DC) - sputum Cx w/ chela - cont duonebs to help clear secretions today, faint exp wheeze # chronic dysphagia: patient has had issues with chronic dysphagia and recurrent aspiration but is not compliant with speech recommendations in terms of dietary modification at home (he has likely mild cognitive impairment) - palliative consult appreciated, patient opted for aggressive tx course, but wishes to cont palliative care as outpt # coag neg staph contaminent: 1/2 BCx, not active infxn # acute encephalopathy: has ongoing altered sensorium but continues to improve today - avoid narcotics, we were able to agree on heat pad/ice for shoulder back, as opposed to percocet # acute respiratory failure: evidenced by SpO2 70% on 10L high flow, increased to 15LPM, respiratory distress on presentation, 2/2 aspiration PNA, d/w patient , he was NOT on supplemental oxygen prior to presentation - cont 2LPM - introduced mucinex w/ ongoing cough, pulm hygiene ordered, duonebs added - appreciate Dr. 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 Reg per VENEER SANDER recs ppx. on coumadin code. DNR dispo. Cont inpt for ongoing evaluation of respiratory failure due to heart failure and chronic aspiration, has auth at [facility] when medically ready . Objective: Vital Signs Temp Pulse Resp BP Pulse Ox 36.5 C 72 18 117/59 L 94 02/22/17 08:30 02/22/17 08:30 02/22/17 08:30 02/22/17 08:30 02/22/17 08:30 Microbiology 02/19/17 10:58 - Final Sputum, Expectorated Sputum Culture - Final [facility] Laboratory Results 02/22/17 05:35 02/22/17 05:35 02/21/17 02/22/17 02/23/17 05:59 05:59 05:59 Intake Total 550 630 Output Total 280 Balance 550 630 -280 PT 40.0 SEC (12.0-15.0) H 02/22/17 05:35 INR 4.04 (0.83-1.16) H 02/22/17 05:35 ICD10 Worksheet Patient Problems: Problems Problem Status Onset Congestive cardiac failure Acute Hypoxia Acute Palliative care encounter Acute Pneumonia Acute Sepsis Acute Acute chest pain Acute Acute respiratory failure Acute Alcoholic intoxication Acute CHRONIC DISEASE MANAGEMENTTransitional Care Acute COPD exacerbation Acute Cardiomyopathy Acute Chest pain Acute Elevated INR Acute Hypoxemia Acute Pneumonia involving right lung Acute Pre-syncope Acute Shortness of breath Acute Subtherapeutic anticoagulation Acute Systolic CHF, acute on chronic Acute Systolic congestive heart failure Acute Troponin level elevated Acute
[2017-02-22] MEDS ORDERED: morphINE 10 MG/0.5 ML UDSYR PO PRN (11:52)
[2017-02-22] MEDS ORDERED: clonazePAM 0.5 MG TAB PO PRN (11:52)
--- NOTE | 2017-02-22 11:56 | HOSPPROG ---
Hospitalist Progress Note Assessment/Plan: 76 yo M with hx of chronic aspiration and recurrent aspiration pna, c/b acute encephalopathy and respiratory failure # aspiration pna: Repeat CXR today personally reviewed and interpreted- increasing LLL infiltrate despite treatment. He is coughing on his own secretions, counseled him that he likely continues to aspirate on oral secretions. He is not compliant with diet precautions and chooses quality of life over quantity. - [employer] following - Cont ertapenem, D#/ - cont duonebs # chronic dysphagia: patient has had issues with chronic dysphagia and recurrent aspiration but is not compliant with speech recommendations in terms of dietary modification at home (he has likely mild cognitive impairment) - palliative consult appreciated # coag neg staph contaminent: 1/2 BCx, not active infxn # acute encephalopathy: He is more confused than 6 weeks ago. query bzd induced , he has not done well with bzd's in the past. -wean klonopin # acute respiratory failure: 70% on 10L high flow, increased to 15LPM, respiratory distress on presentation, 2/2 aspiration PNA, d/w patient, he was NOT on supplemental oxygen prior to presentation. B/L pleural effusions noted, likely related to volume / HF. Worsening infiltrates on CXR. He undoubtedly continues to aspirate. - O2 at 4 LPM - pulm hygiene, ivan - appreciate Dr. 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 Reg / dysphagia 3 per [employer] recs ppx. on coumadin code. DNR dispo. Cont inpt for ongoing evaluation of respiratory failure due to heart failure and chronic aspiration, has auth at [facility] when medically ready. Lengthy discussion today with pt's family. Pt and his family wish to pursue hospice. Pt no longer wants to be re-hospitalized. Case d/w palliative care team. Hospice eval ordered. . Subjective: Pt more confused than he was in 11/2016. He has a wet cough. He is not compliant with speech / diet recs. Denies pain. He is anxious. Objective: Vital Signs Temp Pulse Resp BP Pulse Ox 36.5 C 72 18 117/59 L 93 02/22/17 08:30 02/22/17 10:41 02/22/17 10:41 02/22/17 08:30 02/22/17 11:47 Microbiology 02/19/17 10:58 - Final Sputum, Expectorated Sputum Culture - Final [facility] Laboratory Results 02/22/17 05:35 02/22/17 05:35 02/21/17 02/22/17 02/23/17 05:59 05:59 05:59 Intake Total 550 630 Output Total 480 Balance 550 630 -480 PT 40.0 SEC (12.0-15.0) H 02/22/17 05:35 INR 4.04 (0.83-1.16) H 02/22/17 05:35 - Physical Exam Constitutional: chronically ill appearing Eyes: PERRL Ears, Nose, Mouth, Throat: moist mucous membranes Cardiovascular: regular rate and rhythym Respiratory: no respiratory distress, inspiratory crackles, rhonchi Gastrointestinal: normoactive bowel sounds, soft, non-tender abdomen Skin: warm Musculoskeletal: full muscle strength Psychiatric: encephalopathic ICD10 Worksheet Patient Problems: Problems Problem Status Onset Systolic CHF, acute on chronic Acute Chest pain Acute CHRONIC DISEASE MANAGEMENTTransitional Care Acute Hypoxemia Acute Pre-syncope Acute Cardiomyopathy Acute Alcoholic intoxication Acute Troponin level elevated Acute Elevated INR Acute Shortness of breath Acute Pneumonia Acute Acute chest pain Acute Acute respiratory failure Acute Pneumonia involving right lung Acute Systolic congestive heart failure Acute COPD exacerbation Acute Subtherapeutic anticoagulation Acute Congestive cardiac failure Acute Hypoxia Acute Sepsis Acute Palliative care encounter Acute
--- NOTE | 2017-02-22 14:44 | ASMTCMCOM ---
CM Note CM Note Notes: CM spoke w/ Dr. Garcia regarding d/c POC. The current recommendation is either hospice or assisted care. Katelyn, will f/u to see if pt qualifies for Medicaid. Palliative will be conducting family meeting w/ pts children to discuss options. Ciara from [facility] here to visit w/ pt. Pt has been accepted to a number of SNFs. CM to follow. Date Signed: 02/22/2017 02:43 PM Electronically Signed By:JAIRO Morris
--- NOTE | 2017-02-22 16:15 | ASMTCMCOM ---
CM Note CM Note Notes: CM called daughterNatali and provided her w/ a resource ([employer]) for asset planning. Daughter would like a referral to be made to [facility] for hospice. CM sent over a referral. CM spoke w/ Heather at [facility] and a nurse will be coming out to consult between 11-12 tomorrow. CM to follow. Date Signed: 02/22/2017 04:14 PM Electronically Signed By:JAIRO Morris
--- NOTE | 2017-02-22 17:36 | PDPCPN ---
Palliative Care Progress Note Assessment/Plan: HPI: Frandy Mckeon is a 76 yo male with PMH ETOH (remission 2010), CAD, CHF ( EF 15%), COPD, mech valve, and recurrent asp PNa admitted to the hospital for increased resp distress. Found to have repeated asp PNA with known dysphagia needing nectar thick liquids. Recent admission November [address] [facility]. Palliative care consulted for complex medical decision making. Harmeet seen this afternoon. We spoke about his continued medical issues and continued risk of aspiration and likely chronic aspiration now. He said he feels like he is not getting better and does not want to be in the hospital just sitting around. We talked about his goals which are to not be a burden on his children. He feels he could be near end of life and is not afraid. He is worried about disappointing his children and that he may have done or not done something to cause him to be near end of life. We spoke about hospice care and the option of not returning back to the hospital for future infections and instead focusing on comfort. Harmeet was open to this idea but was more concerned with his children having a say. Spoke with his daughter jaziel, sons hazel and carlos over the phone. They state they understand their dad is not getting better and feel he shouldn't have to have a "strict diet" at this time in his life. Discussed hospice care. The family would like to meet with [facility] and learn about options whether home or LTC. Assessment: Physical: - Pain: none -tylenol PRN - Dyspnea: at times - oxygen as needed - fan for subjective dyspnea - nebs if needed - dysphagia - speech following - nectar thick liquids Emotional/psychological: has a lot of support from family Advanced Care Planning: Is patient decisional?: yes with help Code Status: DNR POA: Daughter Sallie is MDPOA. Plan: Meeting with hospice care. The family will also need information on caregivers if going home. Subjective: I'm doing ok Objective: Vital Signs Temp Pulse Resp BP Pulse Ox 36.8 C 74 18 121/66 H 94 02/22/17 15:54 02/22/17 17:22 02/22/17 17:22 02/22/17 15:54 02/22/17 17:22 Microbiology 02/19/17 10:58 - Final Sputum, Expectorated Sputum Culture - Final [facility] Laboratory Results 02/22/17 05:35 02/22/17 05:35 02/21/17 02/22/17 02/23/17 05:59 05:59 05:59 Intake Total 550 630 Output Total 480 Balance 550 630 -480 PT 40.0 SEC (12.0-15.0) H 02/22/17 05:35 INR 4.04 (0.83-1.16) H 02/22/17 05:35 Physical Exam - Physical Exam General Appearance: alert, no apparent distress Respiratory: No respiratory distress, No accessory muscle use Skin: normal color, warm/dry Extremities: No pedal edema Neuro/Psych: alert, other (mild confusion and short term memory loss) ICD10 Worksheet Patient Problems: Problems Problem Status Onset Congestive cardiac failure Acute Hypoxia Acute Palliative care encounter Acute Pneumonia Acute Sepsis Acute Acute chest pain Acute Acute respiratory failure Acute Alcoholic intoxication Acute CHRONIC DISEASE MANAGEMENTTransitional Care Acute COPD exacerbation Acute Cardiomyopathy Acute Chest pain Acute Elevated INR Acute Hypoxemia Acute Pneumonia involving right lung Acute Pre-syncope Acute Shortness of breath Acute Subtherapeutic anticoagulation Acute Systolic CHF, acute on chronic Acute Systolic congestive heart failure Acute Troponin level elevated Acute - ICD10 Problem Qualifiers (1) Palliative care encounter
[2017-02-22] MEDS: FINASTERIDE 5 MG TAB PO SCH (19:48)
[2017-02-22] MEDS: MIRTAZAPINE 30 MG TAB PO SCH (19:48)
[2017-02-22] MEDS: TAMSULOSIN HCL 0.4 MG CAP PO SCH (19:48)
[2017-02-22] MEDS: SPIRONOLACTONE 25 MG TAB PO SCH (19:49)
[2017-02-22] MEDS: QUEtiapine FUMARATE 200 MG TAB PO SCH (19:50)
[2017-02-22] MEDS: OMEGA-3 FATTY ACIDS 1,000 MG CAP PO SCH (19:50)
[2017-02-22] MEDS: traZODone 50 MG TAB PO SCH (19:50)
[2017-02-22] MEDS: MULTIVITAMINS 1 EACH TAB PO SCH (19:50)
[2017-02-22] MEDS: POTASSIUM CL 20 MEQ/15 ML UDCUP PO SCH (19:55)
[2017-02-23 05:35] LABS: INR 3.95 (0.83-1.16); PROTIME(PATIENT) 39.3 SEC (12.0-15.0)
[2017-02-23] MEDS: IPRATROPIUM/ALBUTEROL 3 ML DEYVIAL IH SCH ×4 (06:20→22:42)
[2017-02-23 07:08] LABS: ANION GAP 8 mEq/L (8-16); CALCIUM 8.9 mg/dL (8.5-10.4); CARBON DIOXIDE 32 mEq/l (22-31); CHLORIDE 100 mEq/L (97-110); CREATININE 0.8 mg/dL (0.7-1.3); GLOMERULAR FILTRATION RATE > 60; GLUCOSE 106 mg/dL (70-100); POTASSIUM 4.2 mEq/L (3.5-5.2); SODIUM 140 mEq/L (134-144)
[2017-02-23] MEDS: ERTAPENEM 1 GM in NS 100 ML IV SCH (08:56)
[2017-02-23] MEDS: POTASSIUM CL 20 MEQ/15 ML UDCUP PO SCH (09:02)
[2017-02-23] MEDS: CARVEDILOL 3.125 MG TAB PO SCH ×2 (09:03→17:29)
[2017-02-23] MEDS: clonazePAM 0.5 MG TAB PO SCH ×2 (09:03→19:45)
[2017-02-23] MEDS: guaiFENesin 600 MG TAB.ER PO SCH ×2 (09:04→19:45)
[2017-02-23] MEDS: CLOPIDOGREL BISULFATE 75 MG TAB PO SCH (09:05)
[2017-02-23] MEDS: PANTOPRAZOLE SODIUM 40 MG TAB PO SCH (09:05)
[2017-02-23] MEDS: FUROSEMIDE 20 MG TAB PO SCH ×2 (10:34→16:08)
[2017-02-23] MEDS: ACETAMINOPHEN 325 MG TAB PO PRN (11:12)
--- NOTE | 2017-02-23 17:04 | HOSPPROG ---
Hospitalist Progress Note Assessment/Plan: 76 yo M with hx of chronic aspiration and recurrent aspiration pna, c/b acute encephalopathy and respiratory failure # aspiration pna: Repeat CXR yest with increasing LLL infiltrate despite treatment. He is coughing on his own secretions, pt and family aware he will continue to aspirate. He is not compliant with diet precautions and chooses quality of life over quantity. - DIVERSITY MANAGER following - Cont ertapenem, D#12/02 - cont duonebs # chronic dysphagia: patient has had issues with chronic dysphagia and recurrent aspiration but is not compliant with speech recommendations in terms of dietary modification at home (he has likely mild cognitive impairment) - palliative consult appreciated # coag neg staph contaminent: 1/2 BCx, not active infxn # acute encephalopathy: He is more confused than 6 weeks ago. query bzd induced , he has not done well with bzd's in the past. -wean klonopin # acute respiratory failure: 70% on 10L high flow, increased to 15LPM, respiratory distress on presentation, 2/2 aspiration PNA, d/w patient, he was NOT on supplemental oxygen prior to presentation. B/L pleural effusions noted, likely related to volume / HF. Worsening infiltrates on CXR. He undoubtedly continues to aspirate. - O2 at 4 LPM - pulm hygiene, ivan - appreciate Dr. 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 Reg / dysphagia 3 per DIVERSITY MANAGER recs ppx. on coumadin code. DNR dispo. Cont inpt for ongoing evaluation of respiratory failure due to heart failure and chronic aspiration, has auth at [facility] when medically ready. Lengthy discussion today with pt's family. Pt and his family wish to pursue hospice. Pt no longer wants to be re-hospitalized. Case d/w palliative care team. Hospice eval ordered. However, he does not have a caregiver for home hospice and cannot afford LTAC. Will d/c to SNF in am. . Subjective: PT doing ok. Breathing the same. No fevers. No CP. Continues to cough. Objective: Vital Signs Temp Pulse Resp BP Pulse Ox 36.4 C 70 18 110/60 95 02/23/17 16:00 02/23/17 16:00 02/23/17 16:00 02/23/17 16:00 02/23/17 16:00 Laboratory Results 02/22/17 05:35 02/23/17 06:30 02/22/17 02/23/17 02/24/17 05:59 05:59 05:59 Intake Total 630 600 Output Total 780 Balance 630 -780 600 PT 39.3 SEC (12.0-15.0) H 02/23/17 04:31 INR 3.95 (0.83-1.16) H 02/23/17 04:31 - Physical Exam Constitutional: chronically ill appearing Ears, Nose, Mouth, Throat: moist mucous membranes Cardiovascular: regular rate and rhythym Respiratory: no respiratory distress, inspiratory crackles, rhonchi Gastrointestinal: normoactive bowel sounds, soft, non-tender abdomen Skin: warm Musculoskeletal: generalized weakness Neurologic: AAOx3 Psychiatric: interacting appropriately ICD10 Worksheet Patient Problems: Problems Problem Status Onset Congestive cardiac failure Acute Hypoxia Acute Palliative care encounter Acute Pneumonia Acute Sepsis Acute Acute chest pain Acute Acute respiratory failure Acute Alcoholic intoxication Acute CHRONIC DISEASE MANAGEMENTTransitional Care Acute COPD exacerbation Acute Cardiomyopathy Acute Chest pain Acute Elevated INR Acute Hypoxemia Acute Pneumonia involving right lung Acute Pre-syncope Acute Shortness of breath Acute Subtherapeutic anticoagulation Acute Systolic CHF, acute on chronic Acute Systolic congestive heart failure Acute Troponin level elevated Acute
[2017-02-23] MEDS: QUEtiapine FUMARATE 200 MG TAB PO SCH (19:46)
[2017-02-23] MEDS: MIRTAZAPINE 30 MG TAB PO SCH (19:46)
[2017-02-23] MEDS: traZODone 50 MG TAB PO SCH (19:47)
[2017-02-23] MEDS: OMEGA-3 FATTY ACIDS 1,000 MG CAP PO SCH (19:47)
[2017-02-23] MEDS: MULTIVITAMINS 1 EACH TAB PO SCH (19:47)
[2017-02-23] MEDS: SPIRONOLACTONE 25 MG TAB PO SCH (19:47)
[2017-02-23] MEDS: TAMSULOSIN HCL 0.4 MG CAP PO SCH (19:47)
[2017-02-23] MEDS: FINASTERIDE 5 MG TAB PO SCH (19:48)
[2017-02-24 05:24] VITALS: TEMP 97.5
[2017-02-24] MEDS: IPRATROPIUM/ALBUTEROL 3 ML DEYVIAL IH SCH (06:11)
[2017-02-24 06:57] LABS: INR 3.95 (0.83-1.16); PROTIME(PATIENT) 39.3 SEC (12.0-15.0)
[2017-02-24] MEDS: ERTAPENEM 1 GM in NS 100 ML IV SCH (09:24)
--- NOTE | 2017-02-24 09:26 | PDIAF ---
- Diagnosis Diagnosis: Respiratory failure, Chronic aspiration, Heart failure Code Status: Do Not Resuscitate - Medication Management Discharge Medications: Medications to Continue on Transfer Atorvastatin Calcium [Lipitor 40 mg (*)] 40 mg PO HS 08/31/14 [Last Taken ] Ferrous Sulfate [Ferrous Sulf 325 MG (*)] 325 mg PO DAILY 08/31/14 [Last Taken 02/14/17] Folic Acid [Folic Acid 1 MG (*)] 1 mg PO HS 08/31/14 [Last Taken 02/13/17] traZODone [traZODONE 50MG (*)] 50 mg PO HS 08/31/14 [Last Taken 02/13/17] Finasteride [Proscar 5 MG (*)] 5 mg PO HS 10/20/15 [Last Taken 02/13/17] Tamsulosin HCl [Flomax 0.4 MG (*)] 0.4 mg PO HS 10/20/15 [Last Taken 02/13/17] Quetiapine Fumarate [Seroquel Xr] 400 mg PO HS 08/17/16 [Last Taken 02/13/17] Clopidogrel Bisulfate [Plavix (*)] 75 mg PO DAILY #0 tab 08/18/16 [Last Taken ] Mirtazapine [Remeron] 45 mg PO HS 09/10/16 [Last Taken 02/13/17] Pantoprazole Sodium [Protonix 40mg (*)] 40 mg PO HS 09/20/16 [Last Taken ] clonazePAM [Klonopin (*)] 0.5 mg PO BID PRN #30 tab 12/10/16 [Last Taken ] Carvedilol [Coreg (*)] 3.125 mg PO BIDMEAL 02/14/17 [Last Taken 02/14/17] Spironolactone [Aldactone 25 MG (*)] 25 mg PO HS 02/14/17 [Last Taken 02/13/17] Furosemide [Lasix 20 MG (*)] 20 mg PO BID #60 tab 02/24/17 [Last Taken Unknown] Warfarin Sodium [Coumadin 5MG (*)] 5 mg PO DAILY #30 tab 02/24/17 [Last Taken Unknown] guaiFENesin [Mucinex 600 MG (*)] 1,200 mg PO BID tab.er 02/24/17 [Last Taken Unknown] Discharge Medications: Refer to the Discharge Home Medication list for PRN reason. - Orders Services needed: Home Care, Registered Nurse Home Care Face to Face: I certify that this patient was under my care and that I had the required [id number] encounter meeting the encounter requirements on the discharge day. My findings support the fact that the patient is homebound as defined in Home Care Face to Face Continued: CMS Chapter 7 Medicare Benefits Manual 30.1.1 , The condition of the patient is such that there exists a normal inability to leave home and consequently, leaving home would require a considerable and taxing effort. Oxygen: 3 LPM Diet Recommendation: no restrictions on diet Diet Texture: Dysphagia 3 - Advanced - Moist, Bite-Size, [place] Thick Liquids, Meds Whole in Puree Additional: [facility] - Labs/Radiology PT/INR Date: 02/25/17 - Follow Up Care Current Providers and Referrals: Roxana Munoz PA [Primary Care Provider] - As per Instructions
[2017-02-24] MEDS: CLOPIDOGREL BISULFATE 75 MG TAB PO SCH (09:31)
[2017-02-24] MEDS: PANTOPRAZOLE SODIUM 40 MG TAB PO SCH (09:31)
[2017-02-24] MEDS: guaiFENesin 600 MG TAB.ER PO SCH (09:31)
[2017-02-24] MEDS: FUROSEMIDE 20 MG TAB PO SCH (09:32)
[2017-02-24] MEDS: POTASSIUM CL 20 MEQ/15 ML UDCUP PO SCH (09:32)
[2017-02-24] MEDS: clonazePAM 0.5 MG TAB PO SCH (09:32)
[2017-02-24] MEDS: CARVEDILOL 3.125 MG TAB PO SCH (09:32)
--- NOTE | 2017-02-24 10:34 | PDHOMEO2F ---
Home Oxygen Face to Face Home Orders: I certify that a physician or a nurse practitioner or physician's purchasing assistant has had a [id number] encounter with this patient on the date of this order due to the diagnosis listed, which relates to the primary reason the patient requires home oxygen. Alternative treatments have been tried, or considered, and deemed ineffective. It is anticipated that supplemental oxygen will result in improvement with treatment. Home oxygen qualifying diagnosis: Chronic aspiration SpO2 on room air (%): 80 Frequency of home oxygen needed: continuous Home oxygen liters per minute: 2-3 Home oxygen delivery device: nasal cannula Concentrator: Yes E-tanks for mobility and back up: Yes If ordering portable O2, is the patient mobile in the home?: Yes I certify that, based on these findings, the home oxygen is medically necessary for this patient for the following length of time. Length of time home oxygen needed: 99 years
[2017-02-24 11:40] VITALS: BP 114/66; PULSE 77; RESP 22; O2SAT 96
--- NOTE | 2017-02-24 12:28 | ASMTCMCOM ---
CM Note CM Note Notes: Pt is being discharged home w/ Natali, daughter who is MDPOA. Confirmed with [facility] and [facility] that oxygen will be free of charge for the transport home w/ family. OT is requesting that [facility] provides pt w/ front wheeled walker, bedside commode and shower chair. Family is requesting that pt recieves some type of therapy. CM communicated this w/ [facility]. CM faxed over d/c orders to [facility]. Pts son is transporting pt to daughter's home. CM available for changes. Date Signed: 02/24/2017 12:28 PM Electronically Signed By:JAIRO Morris
--- NOTE | 2017-02-24 16:19 | ASDISCHSUM ---
Discharge Information Plan Status:Hospice-Home Medically Cleared to Leave:02/24/2017 Discharge Date:02/24/2017 03:55 PM CM D/C Disposition: ADT D/C Disposition:Hospice Home Projected Discharge Date:02/24/2017 11:00 AM Transportation at D/C: Discharge Delay Reason: Follow-Up Date:02/24/2017 11:00 AM Discharge Slot: Final Diagnosis: Placement Information Referral Type:*Group Home/SNF Referral ID:[id number] Provider Name: Address 1: Phone Number: Address 2: Fax Number: City: Selection Factors: State: Referral Type:*Hospice Referral ID:[id number] Provider Name:[facility] Address 1:[address] Address 2: City:[place] Selection Factors: State:[place] Patient Contact Information Contact Name:CHLOE Relationship:Daughter Address:[address] City:[place] [facility] Phone: State/Zip Code:[place] [address] Email: Financial Information Financial Class: Primary Plan Desc:MEDICARE INPATIENT Primary Plan Number:[id number] Secondary Plan Desc:[facility] Secondary Plan Number:[id number] Assessment Information [facility] CM Progress Note CM Note CM Note Notes: Patient is known to [facility] for frequent admissions d/t his PMH of COPD, CAD, CHF, alcoholism (in remission), and CVA. His recent admissions have dealt with aspiration pneumonia, which is the cause of this current admission. Because of the above, a palliative care consult has been scheduled with his children (he has 10) tomorrow at 11AM. CM will follow for discharge planning. Date Signed: 02/15/2017 01:34 PM Electronically Signed By:Paz Hirsch RN [facility] CM Progress Note CM Note CM Note Notes: Met w/pt and children. Discussed dc poc. They are hoping to do speech therapy consistently for while. They would like to start with [facility] sp services. Notified Polly at [facility]. As of now, pt will have [facility] RN, SP, possibly PT if needed. Conf address and discussed homebound status for [facility]. Pt seems to have very supportive children; Natali, dtr ([phone]), would like to be kept in loop of dc plan. CM w/f. Date Signed: 02/16/2017 02:15 PM Electronically Signed By:Nallely Garza RN [facility] CM Progress Note CM Note CM Note Notes: 02/19/2017 Case management note: Met w/pt and daughter Natali. Pt did not participate in conversation. Discussed concerns re: pt ability to follow swallow protocol at all meals if unsupervised. Natali reports that pt lives at [facility] ([place]+ older community) in a [employer] apartment and does not recieve any services. Natali or her brother Gordon check on pt daily and at times provide meals for him. Natali takes pt to grocery store every weekend. Pt had prior stay at [facility]. Natali requested referrals to other facilities as well. Case Management referred to multiple SNFs. Case Management d/c poc: [facility]. Anticipate d/c mid week, waiting to hear back from SNF referrals for placement. Case Management to follow. 02/16/2017 CM Note Met w/pt and children. Discussed dc poc. They are hoping to do speech therapy consistently for while. They would like to start with [facility] sp services. Notified Polly at [facility]. As of now, pt will have [facility] RN, SP, possibly PT if needed. Conf address and discussed homebound status for [facility]. Pt seems to have very supportive children; Natali dtr ([phone]), would like to be kept in loop of dc plan. CM w/f. Date Signed: 02/19/2017 12:12 PM Electronically Signed By:Crissy Li RN [facility] CM Progress Note CM Note CM Note Notes: 02/20/2017 Case Management Note Met w/pt and son Tico. [facility]. Son Tico in agreement w/necessity for rehab stay. Called and spoke w/daughter Natali. Natali to tour [facility] tomorrow and discuss options w/patient. Case Management to follow. 02/19/2017 Case management note: Met w/pt and daughter Natali. Pt did not participate in conversation. Discussed concerns re: pt ability to follow swallow protocol at all meals if unsupervised. Natali reports that pt lives at [facility] [address] ([place]+ older community) in a studio apartment and does not recieve any services. Natali or her brother Gordon check on pt daily and at times provide meals for him. Natali takes pt to grocery store every weekend. Pt had prior stay at [facility]. Natali requested referrals to other facilities as well. Case Management referred to multiple SNFs. Case Management d/c poc: [facility]. Anticipate d/c mid week, waiting to hear back from SNF referrals for placement. Case Management to follow. 02/16/2017 CM Note Met w/pt and children. Discussed dc poc. They are hoping to do speech therapy consistently for while. They would like to start with [facility] sp services. Notified Polly at [facility]. As of now, pt will have [facility] RN, SP, possibly PT if needed. Conf address and discussed homebound status for [facility]. Pt seems to have very supportive children; Natali dtr ([phone]), would like to be kept in loop of dc plan. CM w/f. Date Signed: 02/20/2017 04:47 PM Electronically Signed By:Crissy Li RN [facility] CM Progress Note CM Note CM Note Notes: 02/21/17 CM note Patient likely ready for dc tomorrow. Family wanting [facility]. Discussed with Hortencia and she said that patient okay to be accepted to center. He geremias likely transition to oral antibiotics. Spoke about dc poc to [facility]. She is in agreement. Patient states he has no preference. CM to follow. CM Note 02/20/2017 Case Management Note Met w/pt and son Tico. Pt prefers [facility] for rehab. Son Tico in agreement w/necessity for rehab stay. Called and spoke w/daughter Natali. Natali to tour [facility] tomorrow and discuss options w/patient. Case Management to follow. 02/19/2017 Case management note: Met w/pt and daughter Natali. Pt did not participate in conversation. Discussed concerns re: pt ability to follow swallow protocol at all meals if unsupervised. Natali reports that pt lives at [facility] [address] ([place]+ older community) in a studio apartment and does not recieve any services. Natali or her brother Gordon check on pt daily and at times provide meals for him. Natali takes pt to grocery store every weekend. Pt had prior stay at [facility]. Natali requested referrals to other facilities as well. Case Management referred to multiple SNFs. Case Management d/c poc: [facility]. Anticipate d/c mid week, waiting to hear back from SNF referrals for placement. Case Management to follow. 02/16/2017 CM Note Met w/pt and children. Discussed dc poc. They are hoping to do speech therapy consistently for while. They would like to start with [facility] sp services. Notified Polly at [facility]. As of now, pt will have [facility] RN, SP, possibly PT if needed. Conf address and discussed homebound status for [facility]. Pt seems to have very supportive children; Natali, dtr ([phone]), would like to be kept in loop of dc plan. MIN w/f. Page 1 of 1 Date Signed: 02/21/2017 12:44 PM Electronically Signed By:Nimco Lynch RN [facility] CM Progress Note CM Note CM Note Notes: MIN spoke w/ Dr. Crushing regarding d/c POC. The current recommendation is either hospice or [facility] drier operator care. Katelyn, will f/u to see if pt qualifies for Medicaid. Palliative will be conducting family meeting w/ pts children to discuss options. Ciara from [facility] here to visit w/ pt. Pt has been accepted to a number of SNFs. CM to follow. Date Signed: 02/22/2017 02:43 PM Electronically Signed By:JAIRO Morris [facility] MIN Progress Note CM Note MIN Note Notes: CM called daughterNatali and provided her w/ a resource ([employer]) for asset planning. Daughter would like a referral to be made to [facility] for hospice. CM sent over a referral. MIN spoke w/ Heather at [facility] and a nurse will be coming out to consult between - tomorrow. CM to follow. Date Signed: 02/22/2017 04:14 PM Electronically Signed By:JAIRO Morris [facility] MIN Progress Note MIN Note MIN Note Notes: Pt is being discharged home w/ Natali, daughter who is MDPOA. Confirmed with [facility] and [facility] that oxygen will be free of charge for the transport home w/ family. OT is requesting that [facility] provides pt w/ front wheeled walker, bedside commode and shower chair. Family is requesting that pt recieves some type of therapy. MIN communicated this w/ [facility]. CM faxed over d/c orders to [facility]. Pts son is transporting pt to daughter's home. CM available for changes. Date Signed: 02/24/2017 12:28 PM Electronically Signed By:JAIRO Morris Intervention Information Intervention Type:*IM-Signed Date of Service:02/24/2017 04:12 PM Patient Type:Inpatient Staff Member:Karma Elizabeth Hours: Discipline: Severity: Comment:
--- NOTE | 2017-02-24 21:58 | GDS ---
[f rep st] DISCHARGE SUMMARY DISCHARGE DIAGNOSES: 1. Chronic respiratory failure secondary to recurrent aspiration and acute aspiration pneumonia. 2. Chronic dysphagia with ongoing aspiration and noncompliance with dietary modifications recommended by Speech Therapy. 3. Acute encephalopathy, resolved. 4. Acute on chronic heart failure with ejection fraction of 10%. 5. 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 6. Chronic anticoagulation with a goal INR of 2.5 to 3.5. INR currently supratherapeutic. 7. History of embolic cerebrovascular accident. 8. Atrial fibrillation. 9. Transaminitis, likely secondary to hepatic congestion in the setting of chronic heart failure. 10. History of alcohol abuse, in remission. 11. Chronic obstructive pulmonary disease. 12. Bipolar. CONSULTANTS: 1. Dr. Compa Siddiqui, Pulmonology. 2. Lola Carroll, JIM, Palliative Care. HISTORY: For details, please see dictated history and physical dated February 14, 2017. In brief, the patient is a -rhdk-imo male with multiple hospitalizations this year due to recurrent aspiration pneumonia, presented to the emergency department in respiratory distress and was admitted to the hospital for another suspected aspiration event. HOSPITAL COURSE: The patient was admitted to intensive care unit. He has known aspiration seen on video fluoroscopic swallow study during his last hospitalization in November. He has not participated in outpatient speech therapy and does not follow the dietary recommendations. He has continued to aspirate, likely even on his own secretions. He has grown pseudomonas in previous cultures. He was initially treated with cefepime, and this was transitioned to ertapenem. He completed a week of antibiotics. He also has known heart failure with an ejection fraction of 10%. He presented euvolemic to dry. It seems his baseline weight is around 60 kilos. His discharge weight is 59 kilos. He did require diuresis during the hospitalization, and at discharge he will continue his home Lasix dose. He was again followed by speech therapy, but the patient continues to insist on not following the recommendations, realizing that he continues to aspirate. Despite a week of broad-spectrum antibiotics for aspiration pneumonia, he continues to have persistent infiltrates and possibly worsening opacity in the left lower lobe. He has had multiple conversations with the palliative care team, and his son and daughter have also been involved. He has expressed that he no longer wants to be hospitalized. He wishes to choose quality of life over quantity and ultimately wished to focus on comfort care measures with a recreational diet and desired hospice. Ultimately, it was determined that he would discharge home to live with his sister, who will be his primary caregiver under hospice care. At this time, his daughter wishes to continue his medications, including his Coumadin. His INR over the past several days has been about 4. His Coumadin has been held for 3 days. Will continue to hold it today. I suspect the lability in his INR is secondary to the antibiotic use. Home health services requested to check an INR tomorrow and will continue him on 5 mg of Coumadin daily until he has repeat INR drawn by the Anticoagulation Clinic on Monday, at which time they will continue management of his INR. DISPOSITION: Patient is discharged home in stable condition on 2 L of oxygen. FOLLOWUP: 1. [facility] will care for the patient at home. He will have a follow-up INR tomorrow and again an INR checked at the Anticoagulation Clinic on Monday for further management as indicated. 2. He is to follow up with his primary care provider, Roxana Munoz, as needed , but most of the follow-up care will be provided by hospice. DISCHARGE MEDICATIONS: Please see [facility] for completed outpatient medication list. Several medications have been discontinued at discharge in order to decrease his pill burden given his ongoing aspiration. Discontinued medications include thiamine, multivitamins, omega-3 fatty acid, vitamin B complex, vitamin B6, omeprazole, gabapentin, lisinopril. His Lasix dose is changed to 20 mg p.o. b.i.d. His warfarin dose is changed to 5 mg p.o. daily until his next INR and followup with the Anticoagulation Clinic. New medications include guaifenesin 1200 mg p.o. b.i.d. He will continue all other outpatient medications as previously prescribed. /[id number]/MODL MTDD
--- NOTE | 2017-02-28 11:14 | PQFORM ---
PHYSICIAN QUERY FORM Needs Your Response This query form is being sent to you to assure this patient record is coded properly. Please respond to the question below: TRAFFIC SIGNAL TECHNICIAN QUESTION: Dear Dr. Case, In reviewing this patient medical record it is noted patient had the diagnosis of 'Sepsis.' Patient presented with fever, Respiratory rate of 106, and WBC of 11.56. ER report states patient had the diagnosis of "pneumonia and sepsis." In the Training And Development Officer progress notes dated 02/15-02/20 patient had the diagnosis of 'severe sepsis.' In the SOAP progress notes dated 02/17-02/19 patient had the diagnosis 'severe sepsis,' treated with vancomycin. After study , should the diagnosis of 'severe sepsis' be included in the discharge summary? ___x___ Yes No Other more appropriate diagnosis Unable to determine Thank you NICOLE Castellon [facility]/Coding Dept. [phone] INSTRUCTIONS FOR RESPONSE: Answer question by clicking on the "Edit Document" button. Move cursor to area below the stars. When complete, hit "Save." Click on the "Sign" button, then click "Sign" again. Type in your PIN and hit "Enter." MTDD
== END 2017-02-24 15:55 | disposition hospice, home (50) | DRG 871 ==
LOC: CED 08:27 → CEDHOLD 09:14 → F2N 10:54 → F2W 02-16 15:58
PROVIDERS: ADMIT Internal Medicine; ATTEND Internal Medicine
PROC: 02H633Z Insertion of Infusion Device into Right Atrium, Percutaneous Approach (ICD-10-PCS; principal; 2017-02-15)
PROC: 05HM33Z Insertion of Infusion Device into Right Internal Jugular Vein, Percutaneous Approach (ICD-10-PCS; 2017-02-15)
DX: A41.9 Sepsis, unspecified organism (principal); J69.0 Pneumonitis due to inhalation of food and vomit; G93.49 Other encephalopathy; I50.23 Acute on chronic systolic (congestive) heart failure; J96.10 Chronic respiratory failure, unspecified whether with hypoxia or hypercapnia; R13.19 Other dysphagia; R65.20 Severe sepsis without septic shock; I48.91 Unspecified atrial fibrillation; J44.9 Chronic obstructive pulmonary disease, unspecified; F31.9 Bipolar disorder, unspecified; I25.10 Atherosclerotic heart disease of native coronary artery without angina pectoris; F10.21 Alcohol dependence, in remission; Z95.1 Presence of aortocoronary bypass graft; Z66 Do not resuscitate; Z91.11 Patient's noncompliance with dietary regimen; Z95.3 Presence of xenogenic heart valve; Z72.0 Tobacco use; Z86.73 Personal history of transient ischemic attack (TIA), and cerebral infarction without residual deficits
CPT/HCPCS: 71010-PO; 80048-PO; 82247-PO; 83605-PO; 83880-PO; 84484-PO; 85025-PO; 85378-PO; 85610-PO; 85730-PO; 92507-GN; 92523-GN; 92526-GN; 92610-GN; 96374; 97110-GP; 97116-GP; 97161-GP; 97165-GO; 97530-GO; 97530-GP; 97535-GO; A9537; G0472; G8978-GP-CI; G8979-GP-CI; G8987-GO-CJ; G8988-GO-CI; G8996-GN-CK; G8997-GN-CK; G9168-GN-CJ; G9169-GN-CJ; G9170-GN-CJ; J0692; J1335; J1650; J1940; J2543; J3370